=== PATIENT | female | born 1980 | race Caucasian/White ===

== ENCOUNTER 2016-08-29 15:59 | Emergency (ER) | payer OTHER ==
[2016-08-29 16:22] VITALS: BP 116/85
--- NOTE | 2016-08-29 16:45 | UC ---
Complaint Female HPI - HPI Summary HPI Summary: complaint of pain with urination that started 3 days ago increase in frequency and urgency denies fever ,abdominal pain taken azo and ibuprofen with minimal relief - History Of Current Complaint Chief Complaint: UCGU Stated Complaint: POSS UTI Time Seen by Provider: 08/29/16 16:32 Hx Obtained From: Patient Hx Last Menstrual Period: 08/08/16 - Allergies/Home Medications Allergies/Adverse Reactions: Allergies Allergy/AdvReac Type Severity Reaction Status Date / Time Ceftriaxone [From Rocephin] Allergy Intermediate Hives Verified 08/29/16 16:18 Morphine Allergy Mild Hives Verified 08/29/16 16:18 Aspirin Allergy Unknown Unknown Verified 08/29/16 16:18 Reaction Details Penicillins Allergy Unknown Unknown Verified 08/29/16 16:18 Reaction Details Acetaminophen [From Tylenol] Allergy See Comment Verified 08/29/16 16:18 Ibuprofen AdvReac Intermediate See Comment Verified 08/29/16 16:18 Gentamycin Allergy Intermediate Hives Uncoded 08/29/16 16:18 Home Medications: Home Medications diPHENhydraMINE PO* [Benadryl PO 50 MG CAP*] 08/29/16 [History] PMH/Surg Hx/FS Hx/Imm Hx Previously Healthy: Yes Endocrine History Of: Reports: Thyroid Disease Cardiovascular History Of: Denies: Cardiac Disorders Respiratory History Of: Reports: Bronchitis GI/ History Of: Reports: Kidney Stones - Surgical History Surgical History: Yes Surgery Procedure, Year, and Place: 1979 ifeanyi procedure, (bad liver) ,D&C 1996, Tubal ligation, 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 - Family History Known Family History: Negative: Cardiac Disease, Hypertension, Diabetes - Social History Occupation: Employed Full-time Lives: With Family Alcohol Use: None Substance Use Type: None Smoking Status (MU): Never Smoked Tobacco Review of Systems Constitutional: Negative Skin: Negative Eyes: Negative ENT: Negative Respiratory: Negative Cardiovascular: Negative Gastrointestinal: Negative Genitourinary: Dysuria, Frequency, Urgency Motor: Negative Neurovascular: Negative Musculoskeletal: Negative Neurological: Negative Psychological: Negative All Other Systems Reviewed And Are Negative: Yes Physical Exam Triage Information Reviewed: Yes Appearance: No Pain Distress, Well-Nourished Vital Signs: Initial Vital Signs Temp 98.6 F 08/29/16 16:19 Pulse 93 08/29/16 16:19 Resp 16 08/29/16 16:19 BP 116/85 08/29/16 16:19 Pulse Ox 100 08/29/16 16:19 Vital Signs Reviewed: Yes Eyes: Positive: Conjunctiva Clear ENT: Positive: Pharynx normal, TMs normal Neck: Positive: No Lymphadenopathy Respiratory: Positive: Lungs clear, Normal breath sounds, No respiratory distress, No accessory muscle use Cardiovascular: Positive: RRR, No Murmur, Pulses Normal Abdomen Description: Positive: Nontender, No Organomegaly, Soft. Negative: CVA Tenderness (R), CVA Tenderness (L) Bowel Sounds: Positive: Present Musculoskeletal: Positive: No Edema Neurological: Positive: Alert Psychological Exam: Normal Skin Exam: Normal Complaint Female Dx - Differential Dx/Diagnosis Differential Diagnosis/HQI/PQRI: Urinary Tract Infection Provider Diagnoses: UTI Discharge - Discharge Plan Condition: Stable Disposition: HOME Prescriptions: Nitrofurantoin Monohyd Macro [Macrobid] 100 mg PO BID #10 cap Patient Education Materials: Urinary Tract Infection in Women (ED) Referrals: Neil Bernard MD [Primary Care Provider] - Additional Instructions: Please take antibiotic as directed Increase fluids and rest Take acetaminophen or ibuprofen for fever or pain Please review your discharge instructions. If your symptoms do not improve please call your primary care provider or return to urgent care.
== END 2016-08-29 16:54 | disposition home or self-care (01) ==
LOC: UCEAST 15:59
DX: N39.0 Urinary tract infection, site not specified (principal); Z88.1 Allergy status to other antibiotic agents; Z88.6 Allergy status to analgesic agent; Z88.5 Allergy status to narcotic agent; E07.9 Disorder of thyroid, unspecified; Z87.442 Personal history of urinary calculi; Z94.4 Liver transplant status
CPT/HCPCS: 87077; 87086; 87186; 99212; G0463

== ENCOUNTER 2016-09-02 13:04 | Emergency (ER) | payer OTHER ==
[2016-09-02 14:10] VITALS: BP 123/82
[2016-09-02] MEDS ORDERED: Ondansetron ODT TAB* 4 MG PO ONE (14:10)
--- NOTE | 2016-09-02 14:46 | UC ---
Rakel Slater Matthew, scribed for Afua Perez MD on 09/02/16 at 1421 . Abdominal Pain Female HPI - HPI Summary HPI Summary: A 36 y/o female presents to with one episode of vomiting at 05:00 this morning. She states that she missed the toilet, because of the urgency. She recently started on nitrofurantoin on 08/31/16 for a UTI, and believes the nausea is secondary to her Abx. She took two doses on 08/31, and accidentally 3 doses on 09/01. The patient took her Abx at 20:00 and took the second one at 23: 30 last night. She then became ill at 04:30 today with nausea followed by vomiting at 05:00. Associated symptoms currently include dizziness. She denies diarrhea. The Abx made her feel dizzy and lightheaded, so she was taking the medication in the morning, where she could go back to bed. She also states that she may have overeaten last night. She does not believe the pain is originating from her liver, because she states that pain is not similar. 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 SHx of tubal ligation. Antibiotics normally make her nauseated. - History of Current Complaint Chief Complaint: GI Stated Complaint: VOMITING Time Seen by Provider: 09/02/16 13:57 Hx Obtained From: Patient Hx Last Menstrual Period: July 2016 ?: No Onset/Duration: Sudden Onset, Lasting Hours, Still Present Timing: Constant Severity Initially: Mild Severity Currently: Mild Pain Intensity: 2 Pain Scale Used: 0-10 Numeric Location: Diffuse - "Upset stomach" Radiates: No Character: Aching Aggravating Factor(s): Other: - She believes her symptoms are secondary to the Abx Alleviating Factor(s): Nothing Associated Signs and Symptoms: Positive: Nausea, Vomiting - one episode, Other: - Dizziness. Negative: Diarrhea - Risk Factors Ectopic Risk Factor: Tubal Ligation Ovarian Torsion Risk Factor: Negative Allergies/Adverse Reactions: Allergies Allergy/AdvReac Type Severity Reaction Status Date / Time Ceftriaxone [From Rocephin] Allergy Intermediate Hives Verified 08/29/16 16:18 Morphine Allergy Mild Hives Verified 08/29/16 16:18 Aspirin Allergy Unknown Unknown Verified 08/29/16 16:18 Reaction Details Penicillins Allergy Unknown Unknown Verified 08/29/16 16:18 Reaction Details Acetaminophen [From Tylenol] Allergy See Comment Verified 08/29/16 16:18 Ibuprofen AdvReac Intermediate See Comment Verified 08/29/16 16:18 Gentamycin Allergy Intermediate Hives Uncoded 08/29/16 16:18 PMH/Surg Hx/FS Hx/Imm Hx 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 - Family History Known Family History: Negative: Cardiac Disease, Hypertension, Diabetes - Social History Occupation: Employed Full-time Lives: With Family Alcohol Use: None Substance Use Type: None Smoking Status (MU): Never Smoked Tobacco - Immunization History Most Recent Tetanus Shot: 2017 Review of Systems Constitutional: Negative Skin: Negative Eyes: Negative ENT: Negative Respiratory: Negative Cardiovascular: Negative Gastrointestinal: Vomiting, Other - Nausea Genitourinary: Negative Motor: Negative Neurovascular: Negative Musculoskeletal: Negative Neurological: Other - Dizziness Psychological: Negative All Other Systems Reviewed And Are Negative: Yes Physical Exam Triage Information Reviewed: Yes Appearance: Well-Appearing, Well-Nourished, Pain Distress - mild Vital Signs: Initial Vital Signs Temp 98.8 F 09/02/16 13:59 Pulse 109 09/02/16 13:59 Resp 16 09/02/16 13:59 BP 123/82 09/02/16 13:59 Pulse Ox 100 09/02/16 13:59 tachycardia noted Vital Signs Reviewed: Yes Eyes: Positive: Conjunctiva Clear ENT: Positive: Normal ENT inspection Neck: Positive: Supple Respiratory: Positive: Chest non-tender, Lungs clear, Normal breath sounds, No respiratory distress Cardiovascular: Positive: RRR, No Murmur, Pulses Normal, Brisk Capillary Refill Abdomen Description: Positive: Nontender, No Organomegaly, Soft, Other: - Liver non palpable and non-tender. Negative: Bruit, CVA Tenderness (R), CVA Tenderness (L), Distended, Guarding, Hernia @, Hepatomegaly, McBurney's Point Tenderness, Peritoneal Signs, Pulsatile Mass, Splenomegaly Bowel Sounds: Positive: Present Musculoskeletal: Positive: Strength Intact, ROM Intact Neurological: Positive: Alert, Muscle Tone Normal Psychological: Positive: Age Appropriate Behavior Skin Exam: Normal Abd Pain Female Course/Dx - Course Course Of Treatment: The patient was notified of the med interaction with Zofran. She understands and agrees. Pt medications reviewed this visit - Differential Dx/Diagnosis Differential Diagnosis: Irritable Bowel Syndrome, Pancreatitis, Peptic Ulcer Disease, Urinary Tract Infection, Other - liver transplant rejection Provider Diagnoses: Acute nausea and vomiting. Medication side effect. S/P liver transplant Discharge - Discharge Plan Condition: Stable Disposition: HOME Prescriptions: Ondansetron ODT TAB* [Zofran 4 MG Odt TAB*] 4 mg PO Q6H PRN #20 tab.odt PRN Reason: Nausea Patient Education Materials: Acute Nausea and Vomiting (ED), Ondansetron (By mouth) Forms: *Work Release Referrals: Neil Bernard MD [Primary Care Provider] - (as scheduled on 09/09/16, sooner if needed ) Additional Instructions: Please follow-up with Dr. Bernard as scheduled. RETURN TO URGENT CARE OR ED FOR ANY NEW OR WORSENING SYMPTOMS Thank you for helping us improve patient care by filling out the My [facility]. The documentation as recorded by the Rakel ross Matthew accurately reflects the service I personally performed and the decisions made by , Afua Perez MD.
== END 2016-09-02 14:34 | disposition home or self-care (01) ==
LOC: UCEAST 13:04
DX: R11.2 Nausea with vomiting, unspecified (principal); T37.8X5A Adverse effect of other specified systemic anti-infectives and antiparasitics, initial encounter; Y92.009 Unspecified place in unspecified non-institutional (private) residence as the place of occurrence of the external cause; Z94.4 Liver transplant status; R42 Dizziness and giddiness; E89.1 Postprocedural hypoinsulinemia; E07.9 Disorder of thyroid, unspecified; Z87.442 Personal history of urinary calculi; Z88.1 Allergy status to other antibiotic agents; Z88.5 Allergy status to narcotic agent; Z88.6 Allergy status to analgesic agent; Z88.0 Allergy status to penicillin
CPT/HCPCS: 99212; A9270-GY; G0463

== ENCOUNTER 2016-09-09 19:12 | Emergency (ER) | payer OTHER ==
[2016-09-09 20:39] LABS: Hematocrit 37 % (35-47); Hemoglobin 12.3 g/dl (12.0-16.0); Mean Corpuscular HGB Conc 33 g/dl (31-36); Mean Corpuscular Hemoglobin 27 pg (27-31); Mean Corpuscular Volume 80 fL (80-97); Mean Platelet Volume 9 um3 (7.4-10.4); Red Blood Count 4.65 10^6/ul (4.0-5.4); Red Cell Distribution Width 15 % (10.5-15); White Blood Count 12.1 10^3/ul (3.5-10.8)
--- NOTE | 2016-09-09 20:45 | ED ---
I, Jose E,Betty, scribed for Eugene Pederson MD on 09/09/16 at 2018 . HPI Chest Pain - HPI Summary HPI Summary: This 36 y/o female presents to ED for constant, two-days old CP that radiates down LUE arm. Pain has been gradually worsening since the time of onset, and worse with deep breath. Negative SOB. PMHx includes left shoulder bursitis, kidney stones, and unspecified liver disease s/p [place] procedure in 1979 and liver transplant in 2004. Primary care involves Dr. Bernard. Pt is nonsmoker and nondrinker. - History of Current Complaint Chief Complaint: EDChestPainROMI Hx Obtained From: Patient, Medical Records Onset/Duration: Started Days Ago, Atraumatic, Still Present Timing: Constant, Lasting Days - 2 days Pain Intensity: 4 Pain Scale Used: 0-10 Numeric Chest Pain Location: Diffuse Chest Pain Radiates: Yes Chest Pain Radiates To:: Arm - LUE arm Character: Dull/Aching Aggravating Factor(s): Deep Breaths Alleviating Factor(s): Nothing Associated Signs and Symptoms: Positive: Chest Pain. Negative: Shortness of Breath, Fever - Allergy/Home Medications Allergies/Adverse Reactions: Allergies Allergy/AdvReac Type Severity Reaction Status Date / Time Ceftriaxone [From Rocephin] Allergy Intermediate Hives Verified 08/29/16 16:18 Morphine Allergy Mild Hives Verified 08/29/16 16:18 Aspirin Allergy Unknown Unknown Verified 08/29/16 16:18 Reaction Details Penicillins Allergy Unknown Unknown Verified 08/29/16 16:18 Reaction Details Acetaminophen [From Tylenol] Allergy See Comment Verified 08/29/16 16:18 Ibuprofen AdvReac Intermediate See Comment Verified 08/29/16 16:18 Gentamycin Allergy Intermediate Hives Uncoded 08/29/16 16:18 PMH/Surg Hx/FS Hx/Imm Hx Endocrine/Hematology History: Reports: Hx Diabetes - Post surgical diabetes, Hx Thyroid Disease Cardiovascular History: Denies: Hx Hypertension Respiratory History: Denies: Hx Asthma, Hx Chronic Obstructive Pulmonary Disease (COPD) GI History: Reports: Hx Hiatal Hernia, Other GI Disorders - Liver transplant Denies: Hx Ulcer History: Reports: Hx Kidney Infection, Hx Kidney Stones Musculoskeletal History: Reports: Hx Bursitis - L Shoulder - Surgical History Surgery Procedure, Year, and Place: 1979 ifeanyi procedure, (bad liver) ,D&C 1996, Tubal ligation, 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 Infectious Disease History: Reports: Hx of Known/Suspected MRSA Denies: Hx Clostridium Difficile, Hx Hepatitis, Hx Human Immunodeficiency Virus (HIV), Hx Shingles, Hx Tuberculosis, Hx Known/Suspected VRE, Hx Known/ Suspected VRSA, History Other Infectious Disease, Traveled Outside the [place] in Last 30 Days - Family History Known Family History: Positive: Other - Mother -- HLD; Father -- unspecified thyroid issue Negative: Cardiac Disease, Hypertension, Diabetes - Social History Alcohol Use: None Hx Substance Use: No Substance Use Type: Reports: None Hx Tobacco Use: No Smoking Status (MU): Never Smoked Tobacco Review of Systems Negative: Fever Positive: Chest Pain - radiating down LUE arm Negative: Shortness Of Breath All Other Systems Reviewed And Are Negative: Yes Physical Exam Triage Information Reviewed: Yes Vital Signs On Initial Exam: Initial Vitals Temp Pulse Resp BP Pulse Ox 99.2 F 106 18 133/84 100 09/09/16 19:21 09/09/16 19:21 09/09/16 19:21 09/09/16 19:21 09/09/16 19:21 Vital Signs Reviewed: Yes Appearance: Positive: Well-Appearing, No Pain Distress Skin: Positive: Warm Head/Face: Positive: Normal Head/Face Inspection Eyes: Positive: RC ENT: Positive: Hearing grossly normal Neck: Positive: Supple Respiratory/Lung Sounds: Positive: Clear to Auscultation, Breath Sounds Present Cardiovascular: Positive: RRR Abdomen Description: Positive: Nontender, Soft Bowel Sounds: Positive: Present Musculoskeletal: Positive: Strength/ROM Intact Neurological: Positive: Sensory/Motor Intact, Alert, Oriented to Person Place, Time, Normal Gait Psychiatric: Positive: Affect/Mood Appropriate Diagnostics - Vital Signs Vital Signs Temp Pulse Resp BP Pulse Ox 09/09/16 19:21 99.2 F 106 18 133/84 100 - Laboratory Lab Results: Lab Results 09/09/16 Range/Units 20:28 WBC 12.1 H (3.5-10.8) 10^3/ul RBC 4.65 (4.0-5.4) 10^6/ul Hgb 12.3 (12.0-16.0) g/dl Hct 37 (35-47) % MCV 80 (80-97) fL MCH 27 (27-31) pg MCHC 33 (31-36) g/dl RDW 15 (10.5-15) % Plt Count 214 (150-450) 10^3/ul MPV 9 (7.4-10.4) um3 Neut % (Auto) 81.2 (38-83) % Lymph % (Auto) 13.5 L (25-47) % [place] % (Auto) 4.4 (1-9) % Eos % (Auto) 0.3 (0-6) % Baso % (Auto) 0.6 (0-2) % Absolute Neuts (auto) 9.8 H (1.5-7.7) 10^3/ul Absolute Lymphs (auto) 1.6 (1.0-4.8) 10^3/ul Absolute Monos (auto) 0.5 (0-0.8) 10^3/ul Absolute Eos (auto) 0 (0-0.6) 10^3/ul Absolute Basos (auto) 0.1 (0-0.2) 10^3/ul Absolute Nucleated RBC 0 10^3/ul Nucleated RBC % 0 Result Diagrams: 09/09/16 20:28 09/09/16 20:28 Lab Statement: Any lab studies that have been ordered have been reviewed, and results considered in the medical decision making process. - Radiology CXR Xray Interpretation: No Acute Changes Radiology Interpretation Completed By: Radiologist - CT CTA Chest/Thorax CT Interpretation: No Acute Changes - No CT of evidence of pulmonary embolism or other acute thoracic abnormality.. CT Interpretation Completed By: Radiologist - EKG 2013 Cardiac Rate: NL - 88 bpm EKG Rhythm: Sinus Rhythm Re-Evaluation - Re-Evaluation First Eval Change: Improved - results d/w pt Chest Pain Course/Dx - Diagnoses Provider Diagnoses: Chest pain Discharge - Discharge Plan Condition: Stable Disposition: HOME Patient Education Materials: Chest Pain (ED) Referrals: Neil Bernard MD [Primary Care Provider] - 2 Days The documentation as recorded by the Jose E ross Soohyun accurately reflects the service I personally performed and the decisions made by , Eugene Pederson MD.
[2016-09-09 21:00] LABS: BUN/Creatinine Ratio 19.7 (8-20); Calcium 9.1 mg/dL (8.6-10.3); EGFR African American 109.5 (>60); EGFR Non-African American 85.2 (>60); Globulin 4.1 g/dL (2-4); Magnesium 1.8 mg/dL (1.9-2.7); Potassium 3.7 mmol/L (3.5-5.0); Total Bilirubin 0.5 mg/dL (0.2-1.0); Total Protein 8.1 g/dL (6.4-8.9)
--- NOTE | 2016-09-09 21:00 | RAD ---
INDICATION: Chest pain COMPARISON: Similar chest x-ray dated April 20, 2014 TECHNIQUE: PA and lateral views of the chest were obtained. FINDINGS: The heart and mediastinum are normal in size and contour. The lungs are grossly clear. There is no evidence of large pleural effusion. Visualized bones are normal for the patient's age. There is no radiographic evidence of free air beneath the diaphragm IMPRESSION: No radiographic evidence of acute cardiopulmonary disease.
[2016-09-09 21:01] LABS: Troponin I 0.01 ng/mL (<0.04)
[2016-09-09] MEDS ORDERED: Iodixanol* (CONTRAST) 320 MG/ML 100 ML SDV IV ONE (21:24)
--- NOTE | 2016-09-09 22:15 | RAD ---
INDICATION: Chest pain x2 days COMPARISON: With recent CTA of the chest January 01, 2015 TECHNIQUE: Axial source images were acquired following the administration of 66 mL of Visipaque [address] angiographic technique. Coronal and sagittal reconstructed images were constructed and reviewed. FINDINGS: There there are no filling defects in the pulmonary arteries to indicate acute pulmonary embolic disease. There are no focal infiltrates or effusions. There are no pulmonary parenchymal masses. The heart is normal in size. There is no evidence of pericardial effusion. There is no evidence of aortic aneurysm or dissection. There is no mediastinal, hilar, or axillary lymphadenopathy. The visualized osseous structures appear normal. Similar the previous CTA there is air in the biliary system of the left lobe. IMPRESSION: No CT of evidence of pulmonary embolism or other acute thoracic abnormality..
[2016-09-09 23:06] VITALS: BP 113/76
== END 2016-09-09 23:06 | disposition home or self-care (01) ==
LOC: ED 19:12
DX: R07.9 Chest pain, unspecified (principal)
CPT/HCPCS: 36415; 71020; 71275; 80053; 83605; 83735; 84484; 85025; 85379; 93005; 96374; 99283; Q9967

== ENCOUNTER 2016-11-23 09:22 | Emergency (ER) | payer OTHER ==
[2016-11-23 09:32] VITALS: BP 135/73
--- NOTE | 2016-11-23 09:49 | UC ---
Lower Extremity/Ankle HPI - History of Current Complaint Chief Complaint: UCLowerExtremity Stated Complaint: FOOT PAIN Hx Obtained From: Patient - has been treated for R foot bone spur and heelpain, pain in sole by head of product. she has had a Xray and is waiting for MRI to be approved. pain became after work yesterday, felt like foot got swollen. she was able to elevate foot and wear boot and today a bit better. she works long hours on her feet Hx Last Menstrual Period: 11/16/16 Onset/Duration: Gradual Onset Severity Initially: Severe Severity Currently: Mild Aggravating Factor(s): Standing, Ambulation Alleviating Factor(s): Rest, Elevation, Ice, Other - boot (head of product) Able to Bear Weight: Yes - Risk Factors Gout Risk Factors: Negative - Allergies/Home Medications Allergies/Adverse Reactions: Allergies Allergy/AdvReac Type Severity Reaction Status Date / Time Ceftriaxone [From Rocephin] Allergy Intermediate Hives Verified 08/29/16 16:18 Morphine Allergy Mild Hives Verified 08/29/16 16:18 Aspirin Allergy Unknown Unknown Verified 08/29/16 16:18 Reaction Details Penicillins Allergy Unknown Unknown Verified 08/29/16 16:18 Reaction Details Acetaminophen [From Tylenol] Allergy See Comment Verified 08/29/16 16:18 Ibuprofen AdvReac Intermediate See Comment Verified 08/29/16 16:18 Gentamycin Allergy Intermediate Hives Uncoded 08/29/16 16:18 PMH/Surg Hx/FS Hx/Imm Hx Previously Healthy: Yes GI/ History: Other - liver transplant (congenital biliary atresia) Other GI/ History: liver transplant Psychological History: Anxiety - Surgical History Surgical History: Yes Surgery Procedure, Year, and Place: 1979 ifeanyi procedure, (bad liver) ,D&C 1996, Tubal ligation, 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 - Family History Known Family History: Positive: Other - Mother -- HLD; Father -- unspecified thyroid issue Negative: Cardiac Disease, Hypertension, Diabetes - Social History Occupation: Employed Full-time - [employer] Lives: With Family Alcohol Use: None Substance Use Type: None Smoking Status (MU): Never Smoked Tobacco - Immunization History Most Recent Tetanus Shot: 2017 Review of Systems Constitutional: Negative Skin: Negative Respiratory: Negative Cardiovascular: Negative Gastrointestinal: Negative Musculoskeletal: Other: - L heel and foot pain All Other Systems Reviewed And Are Negative: Yes Physical Exam Triage Information Reviewed: Yes Appearance: Well-Appearing, No Pain Distress, Well-Nourished Vital Signs: Initial Vital Signs Temp 97.6 F 11/23/16 09:29 Pulse 87 11/23/16 09:29 Resp 16 11/23/16 09:29 BP 135/73 11/23/16 09:29 Pulse Ox 100 11/23/16 09:29 Vital Signs Reviewed: Yes Respiratory Exam: Normal Cardiovascular Exam: Normal Musculoskeletal: Positive: Strength Intact, ROM Intact, Other: - amb with slight R side limp Neurological Exam: Normal Psychological Exam: Normal Skin Exam: Normal Lower Extremity Course/Dx - Differential Dx/Diagnosis Differential Diagnosis/HQI/PQRI: Contusion, Sprain, Strain, Tendonitis, Other - tendon injury Provider Diagnoses: R plantar fasciitis and heel spur Discharge - Discharge Plan Condition: Good Disposition: HOME Patient Education Materials: Plantar Fasciitis (ED), Heel Spur (ED) Forms: *Work Release Referrals: Neil Bernard MD [Primary Care Provider] - Josh Kelly DPM [Doctor of Podiatric Medicine] - Additional Instructions: Elevate foot and use ice as discussed for pain and swelling Use boot from head of product whenever possible Follow-up with podiatry as planned on Friday
== END 2016-11-23 09:59 | disposition home or self-care (01) ==
LOC: UCEAST 09:22
DX: M72.2 Plantar fascial fibromatosis (principal); M77.31 Calcaneal spur, right foot
CPT/HCPCS: 99211; G0463

== ENCOUNTER → 2016-12-27 10:22 | Day surgery (SDC) | payer OTHER ==
[~2016-12-27 10:22] MED LIST: Buffered Lidocaine 0.9% SYRIN* 5 ML/SYR SYRINGE INTRADERM ONE; Buffered Lidocaine 0.9% SYRIN* 5 ML/SYR SYRINGE ONE; Bupivacaine 0.25% SDV* 30 ML ONE; Clindamycin 900 MG IVPREMIX(* 900 MG/50 ML SDV IV ONE; Dexamethasone IV* 4 MG/ML 1 ML (4 MG) IV SLOW PU ONE; Dexamethasone IV* 4 MG/ML 1 ML (4 MG) ONE; Glycopyrrolate IV* 0.2 MG/ML 1 ML VIAL ONE; HYDROmorphone* 1 MG/ML 1 ML SYR IV PRN; KETAMINE HCL* 50 MG/ML 10 ML VIAL ONE; Ketorolac INJ* 30 MG/ML 1 ML VIAL ONE; Lidocaine 1% INJ* 10 MG/ML 30 ML SDV ONE; Lidocaine 2% PF * 5 ML VIAL ONE; Metoclopramide IV* 5 MG/ML 2 ML VIAL IV SLOW PU ONE; Metoclopramide IV* 5 MG/ML 2 ML VIAL ONE; Midazolam* 1 MG/ML 5 ML VIAL (5 MG) ONE; Neostigmine Methylsulfate* 2 MG/2 ML SYRINGE ONE; Ondansetron INJ* 2 MG/ML VIAL ONE; Propofol* 500 MG/50 ML BTL ONE; diPHENhydraMINE IV* 50 MG/ML 1 ml VIAL (BENADRYL) IV PRN; fentaNYL* 50 MCG/ML 2 ML VIAL (100 MCG VIAL) IV PRN; fentaNYL* 50 MCG/ML 2 ML VIAL (100 MCG VIAL) ONE; oxyCODONE TAB* 5 MG TAB PO PRN
[2016-12-27 15:02] VITALS: BP 111/81
--- NOTE | 2016-12-28 05:55 | OP ---
DATE OF OPERATION: 12/27/16 - [facility] DATE OF : 76 SURGEON: Josh Kelly DPM ANESTHESIOLOGIST: Hilda Talamantes MD ANESTHESIA: MAC local. PRE-OP DIAGNOSIS: Right foot Cait exostosis. POST-OP DIAGNOSIS: Right foot Cait exostosis. OPERATIVE PROCEDURE: Removal of Cait exostosis, right foot. ESTIMATED BLOOD LOSS: Less than 10 cc. IV FLUIDS: LR 1000 cc. DRAINS: None. SPECIMEN: Bone from the right calcaneus. DESCRIPTION OF PROCEDURE: The patient was taken to the operating room and was placed in a left lateral decubitus position with the right side facing the surgeon. Time-out was called and OR team agreed. The right foot was then blocked with 8 cc of 1% lidocaine plain locally to area. The foot was then prepped and draped in a sterile manner. The right foot was then exsanguinated with an Esmarch bandage and the cuff was then inflated to 250 mmHg. Attention was then paid to the lateral aspect of the right foot. I made a linear incision just slightly inferior to the Achilles tendon, approximately 2 to 3 cm from the Achilles tendon insertion site and another 1 cm distal to the insertion site. This was followed by sharp and blunt dissection from the epidermis, dermis, subcutaneous into the deep fascia. The lateral aspect of the calcaneus was then identified and the attachment of the Achilles tendon to the calcaneus was identified as well. I made a linear incision over the calcaneus, just approximately 2 cm from the Achilles tendon site and insertion site. I then proceeded to underscore and dissect lightly peeling of the tendon from its lateral attachments of the calcaneus. This gave me access to the Cait deformity, which has an exostosis or bony spur going into the original calcaneal part of the heel bone. I then went ahead and took a sagittal saw and proceeded to remove and excise the Cait exostosis. Once it was determined that adequate bone was removed, the procedure was then deemed completed. The area was wrapped smooth and I then proceeded to close the wound in a fashion with the deep layers sutured with a combination of 2-0 and 3-0 Polysorb , and the subcutaneous layer was closed with a 3-0 Polysorb as well, and the skin was closed with a 4-0 nylon in a simple sutured fashion. The site was then injected with 8 cc of 0.25% Marcaine plain and procedure was then deemed completed. The cuff was deflated. The foot was then placed in a dry sterile dressing. The patient was taken to recovery in a stable condition and was later discharged in stable condition as well. [id number]/[facility] #: [id number] MTDD
== END | disposition home or self-care (01) ==
LOC: OR 10:22
PROVIDERS: ATTEND Podiatrist
DX: M77.31 Calcaneal spur, right foot (principal); Z88.6 Allergy status to analgesic agent; Z88.1 Allergy status to other antibiotic agents; Z88.5 Allergy status to narcotic agent; Z88.0 Allergy status to penicillin; Z88.8 Allergy status to other drugs, medicaments and biological substances; Z94.4 Liver transplant status
CPT/HCPCS: J1100; J1885; J2001; J2250; J2405; J2704; J2765; J3010

== ENCOUNTER 2017-06-26 09:38 | Inpatient (IN) | payer OTHER ==
[~2017-06-26 09:38] MED LIST changes: -Buffered Lidocaine 0.9% SYRIN* 5 ML/SYR SYRINGE INTRADERM ONE; -Buffered Lidocaine 0.9% SYRIN* 5 ML/SYR SYRINGE ONE; -Bupivacaine 0.25% SDV* 30 ML ONE; -Clindamycin 900 MG IVPREMIX(* 900 MG/50 ML SDV IV ONE; -Dexamethasone IV* 4 MG/ML 1 ML (4 MG) IV SLOW PU ONE; -Dexamethasone IV* 4 MG/ML 1 ML (4 MG) ONE; -Glycopyrrolate IV* 0.2 MG/ML 1 ML VIAL ONE; -HYDROmorphone* 1 MG/ML 1 ML SYR IV PRN; -KETAMINE HCL* 50 MG/ML 10 ML VIAL ONE; -Ketorolac INJ* 30 MG/ML 1 ML VIAL ONE; -Lidocaine 1% INJ* 10 MG/ML 30 ML SDV ONE; -Lidocaine 2% PF * 5 ML VIAL ONE; -Metoclopramide IV* 5 MG/ML 2 ML VIAL IV SLOW PU ONE; -Metoclopramide IV* 5 MG/ML 2 ML VIAL ONE; -Midazolam* 1 MG/ML 5 ML VIAL (5 MG) ONE; -Neostigmine Methylsulfate* 2 MG/2 ML SYRINGE ONE; -Ondansetron INJ* 2 MG/ML VIAL ONE; -Propofol* 500 MG/50 ML BTL ONE; +Vancomycin(*) 1,500 MG in NS 0.9% 250 ML* 250 ML IVPB ONE; -diPHENhydraMINE IV* 50 MG/ML 1 ml VIAL (BENADRYL) IV PRN; -fentaNYL* 50 MCG/ML 2 ML VIAL (100 MCG VIAL) IV PRN; -fentaNYL* 50 MCG/ML 2 ML VIAL (100 MCG VIAL) ONE; -oxyCODONE TAB* 5 MG TAB PO PRN
[2017-06-26] MEDS ORDERED: Ketorolac INJ* 30 MG/ML 1 ML VIAL IV PUSH ONE (10:07)
[2017-06-26] MEDS ORDERED: Ondansetron INJ* 2 MG/ML VIAL IV ONE (10:07)
[2017-06-26] MEDS ORDERED: NS 0.9% 1000 ML* 2,000 ML IV ONE (10:08)
[2017-06-26] MEDS ORDERED: metroNIDAZOLE IV 500 MG/100ML* 500 MG/100 ML BAG IVPB ONE (10:30)
[2017-06-26] MEDS ORDERED: Cefepime 2 GM in Dextrose(*) 2 GM/50 ML BAG IV ONE (10:30)
[2017-06-26] MEDS ORDERED: Vancomycin(*) 1,000 MG in NS 0.9% 250 ML* 250 ML IVPB ONE (10:30)
[2017-06-26] MEDS ORDERED: diPHENhydraMINE IV* 50 MG/ML 1 ml VIAL (BENADRYL) IV ONE (10:31)
[2017-06-26 10:33] LABS: ABS Basophils 0 10^3/ul (0-0.2); ABS Eosinophils 0 10^3/ul (0-0.6); ABS Lymphocytes 0.6 10^3/ul (1.0-4.8); ABS Monocytes 0.5 10^3/ul (0-0.8); ABS Neutrophils 9.3 10^3/ul (1.5-7.7); ABS Nucleated RBC 0 10^3/ul; Eosinophil % 0.2 % (0-6); Hematocrit 40 % (35-47); Hemoglobin 13.4 g/dl (12.0-16.0); Mean Corpuscular HGB Conc 34 g/dl (31-36); Mean Corpuscular Hemoglobin 27 pg (27-31); Mean Corpuscular Volume 81 fL (80-97); Mean Platelet Volume 9 um3 (7.4-10.4); Nucleated Red Blood Cells % 0; Platelet Count 136 10^3/ul (150-450); Red Blood Count 4.93 10^6/ul (4.0-5.4); Red Cell Distribution Width 17 % (10.5-15); White Blood Count 10.5 10^3/ul (3.5-10.8)
[2017-06-26 10:48] LABS: EGFR Non-African American 80.3 (>60)
--- NOTE | 2017-06-26 10:54 | ED ---
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 Denies any urinary symptoms, including suprapubic pain, burning, cloudy urine. History of kidney stone many years ago, but has not cause complications since that time. Endorses diffuse myalgias. Symptoms have been present 2 days. She has not taken anything for relief. She takes tacrolimus as her rejection medication for her liver transplant. Denies any cough or sore throat. She did not receive a flu vaccination this year, endorses sick contacts. Denies travel. - History of Current Complaint Chief Complaint: EDNauseaVomitDiarrh Time Seen by Provider: 06/26/17 09:51 Hx Obtained From: Patient Onset/Duration: Sudden Onset Severity: Moderate Associated Signs & Symptoms: Fever, T Max - 103.4, F/C, Myalgia, Headache, Vomiting Related Hx: Possible Flu/Infectious Exposure - Risk Factors Influenza Risk Factors: Chronic Medical or Immunosuppresive Condition - On Prograf S/P liver transplant 2006 - Allergy/Home Medications Allergies/Adverse Reactions: Allergies Allergy/AdvReac Type Severity Reaction Status Date / Time ceftriaxone Allergy Intermediate Hives Verified 06/26/17 12:14 gentamicin Allergy Intermediate Hives Verified 06/26/17 12:14 morphine Allergy Intermediate Hives Verified 06/26/17 12:14 acetaminophen Allergy Unknown Verified 06/26/17 10:38 Reaction Details aspirin Allergy Unknown Verified 06/26/17 10:38 Reaction Details Penicillins Allergy Unknown Verified 06/26/17 10:38 Reaction Details ibuprofen AdvReac Intermediate See Comment Verified 06/26/17 12:14 Home Medications: Home Medications Cyclobenzaprine TAB* [Flexeril 10 MG TAB*] 10 mg PO BID PRN 06/26/17 [History Confirmed 06/26/17] Ibuprofen TAB* [Advil TAB*] 400 mg PO BID WITH MEALS 06/26/17 [History Confirmed 06/26/17] Ranitidine TAB (NF) [Zantac TAB (NF)] 150 mg PO BID 06/26/17 [History Confirmed 06/26/17] clonazePAM TAB(*) [KlonoPIN TAB(*)] 0.5 - 1 mg PO BEDTIME PRN 06/26/17 [History Confirmed 06/26/17] diphenhydrAMINE HCl [Benadryl] 25 - 50 mg PO Q8HR PRN 06/26/17 [History Confirmed 06/26/17] oxyCODONE TAB* [Roxycodone TAB 5 mg*] 10 - 15 mg PO BEDTIME PRN 06/26/17 [ History Confirmed 06/26/17] predniSONE TAB* [Deltasone TAB*] 10 mg PO DAILY 06/26/17 [History Confirmed 12/06] PMH/Surg Hx/FS Hx/Imm Hx Previously Healthy: Yes Endocrine/Hematology History: Reports: Hx Thyroid Disease, Hx Anemia - NOT CURRENTLY Denies: Hx Diabetes Cardiovascular History: Denies: Hx Hypertension Respiratory History: Denies: Hx Asthma, Hx Chronic Obstructive Pulmonary Disease (COPD) GI History: Reports: Hx Cirrhosis - 2005 LIVER TRANSPLANT, BILALARY ATRESIA, Hx Gastroesophageal Reflux Disease - OCCASIONA, Hx Hiatal Hernia, Other GI Disorders - Liver transplant Denies: Hx Ulcer History: Reports: Hx Kidney Infection - R/T STONE 2008, Hx Kidney Stones - NO SURGERY Musculoskeletal History: Reports: Hx Arthritis - GENERALIZED, Hx Bursitis - L Shoulder, Other Musculoskeletal History - 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 Denies: Hx Rheumatoid Arthritis Sensory History: Denies: Hx Contacts or Glasses, Hx Hearing Aid Opthamlomology History: Denies: Hx Contacts or Glasses Neurological History: Reports: Hx Migraine - HX OF AFTER LIVER TRANSPLANT 2004 NONE RECENT Psychiatric History: Reports: Hx Anxiety, Hx Depression - Surgical History Surgery Procedure, Year, and Place: 1979 ifeanyi procedure, (bad liver) ,D&C 1996, Tubal ligation 2000, liver altizthldz45/ 2005 (liver failure) [facility], tonsillectomy 2008 [facility] Hx Anesthesia Reactions: Yes - HIGH ISABELL TO PAIN MEDS REPORTS AWAKENING DURING PROCEDURES - Immunization History Hx Pertussis Vaccination: No Immunizations Up to Date: Yes Infectious Disease History: No Infectious Disease History: Reports: Hx of Known/Suspected MRSA Denies: Hx Clostridium Difficile, Hx Hepatitis, Hx Human Immunodeficiency Virus (HIV), Hx Shingles, Hx Tuberculosis, Hx Known/Suspected VRE, Hx Known/ Suspected VRSA, History Other Infectious Disease, Traveled Outside the [place] in Last 30 Days - Family History Known Family History: Positive: Other - Mother -- HLD; Father -- unspecified thyroid issue Negative: Cardiac Disease, Hypertension, Diabetes - Social History Occupation: Employed Full-time Lives: With Family Alcohol Use: None Hx Substance Use: No Substance Use Type: Reports: Prescribed Hx Tobacco Use: No Smoking Status (MU): Never Smoked Tobacco Review of Systems Positive: Fever, Chills, Fatigue, Skin Diaphoresis ENT: Negative Negative: Sore Throat, Ear Ache, Nasal Discharge Cardiovascular: Negative Negative: Palpitations, Chest Pain Negative: Shortness Of Breath, Cough Positive: Vomiting, Nausea Genitourinary: Negative Positive: no symptoms reported, see HPI Positive: Myalgia Skin: Negative Positive: Headache All Other Systems Reviewed And Are Negative: Yes Physical Exam Triage Information Reviewed: Yes Vital Signs On Initial Exam: Initial Vitals Temp Pulse Resp BP Pulse Ox 102.5 F 131 22 125/82 100 06/26/17 09:47 06/26/17 09:47 06/26/17 09:47 06/26/17 09:47 06/26/17 09:47 Vital Signs Reviewed: Yes Appearance: Positive: Well-Nourished, Ill-Appearing Skin: Positive: Skin Color Reflects Adequate Perfusion Head/Face: Positive: Normal Head/Face Inspection Eyes: Positive: EOMI, RC, Conjunctiva Clear Neck: Positive: Supple, No Lymphadenopathy Respiratory/Lung Sounds: Positive: Clear to Auscultation, Breath Sounds Present Cardiovascular: Positive: RRR, Pulses are Symmetrical in both Upper and Lower Extremities Musculoskeletal: Positive: Normal, Strength/ROM Intact Neurological: Positive: Speech Normal Psychiatric: Positive: Normal, Affect/Mood Appropriate AVPU Assessment: Alert - [place] Coma Scale Best Eye Response: 4 - Spontaneous Best Motor Response: 5 - Purposeful Movement Best Verbal Response: 5 - Oriented Coma Scale Total: 14 Diagnostics - Vital Signs Vital Signs Temp Pulse Resp BP Pulse Ox 06/26/17 09:47 102.5 F 131 22 125/82 100 - Laboratory Lab Results: Lab Results 06/26/17 06/26/17 Range/Units 10:22 10:22 WBC 10.5 (3.5-10.8) 10^3/ul RBC 4.93 (4.0-5.4) 10^6/ul Hgb 13.4 (12.0-16.0) g/dl Hct 40 (35-47) % MCV 81 (80-97) fL MCH 27 (27-31) pg MCHC 34 (31-36) g/dl RDW 17 H (10.5-15) % Plt Count 136 L (150-450) 10^3/ul MPV 9 (7.4-10.4) um3 Neut % (Auto) 88.9 H (38-83) % Lymph % (Auto) 6.0 L (25-47) % Leake % (Auto) 4.6 (0-7) % Eos % (Auto) 0.2 (0-6) % Baso % (Auto) 0.3 (0-2) % Absolute Neuts (auto) 9.3 H (1.5-7.7) 10^3/ul Absolute Lymphs (auto) 0.6 L (1.0-4.8) 10^3/ul Absolute Monos (auto) 0.5 (0-0.8) 10^3/ul Absolute Eos (auto) 0 (0-0.6) 10^3/ul Absolute Basos (auto) 0 (0-0.2) 10^3/ul Absolute Nucleated RBC 0 10^3/ul Nucleated RBC % 0 Sodium 132 L (133-145) mmol/L Potassium 3.7 (3.5-5.0) mmol/L Chloride 99 L (101-111) mmol/L Carbon Dioxide 25 (22-32) mmol/L Anion Gap 8 (2-11) mmol/L BUN 20 (6-24) mg/dL Creatinine 0.80 (0.51-0.95) mg/dL Est GFR ( Amer) 103.2 (>60) Est GFR (Non-Af Amer) 80.3 (>60) BUN/Creatinine Ratio 25.0 H (8-20) Glucose 93 (70-100) mg/dL Calcium 9.2 (8.6-10.3) mg/dL Magnesium 1.5 L (1.9-2.7) mg/dL Total Bilirubin 0.60 (0.2-1.0) mg/dL AST 18 (13-39) U/L ALT 19 (7-52) U/L Alkaline Phosphatase 97 (34-104) U/L C-Reactive Protein 6.17 H (< 5.00) mg/L Total Protein 7.6 (6.4-8.9) g/dL Albumin 4.0 (3.2-5.2) g/dL Globulin 3.6 (2-4) g/dL Albumin/Globulin Ratio 1.1 (1-3) Lipase 15 (11.0-82.0) U/L Beta HCG, Quant Pending Result Diagrams: 06/26/17 10:22 06/26/17 10:22 Lab Statement: Any lab studies that have been ordered have been reviewed, and results considered in the medical decision making process. Re-Evaluation - Re-Evaluation First Eval Change: Worse - Worse since arrival, myalgia. She is given Toradol and Zofran Second Eval Change: Worse - Continues to have diffuse myalgias, now with headache. She is given 0.5 IV Dilaudid Third Eval Change: Worse - Continues to have fevers. Now at 103.4 despite the Toradol. She is given 650 mg Tylenol Flu Symptom Course/Dx - Course Course Of Treatment: During the course of treatment, the patient is evaluated for right flank pain and flulike symptoms. Vital signs show 102.3 temp, heart rate at 131, respirations at 22. Initiated septic protocol based on her vital signs. Blood pressure within normal range at 128/82. 2 L normal saline, 4 mg morphine, 30 mg Toradol IV is given. Sepsis of unknown origin antibiotics initiated. Due to allergies of penicillins and ceftriaxone, vancomycin 1000 mg , cefepime and metronidazole given. Due to allergic reaction of ceftriaxone, she is premedicated with 50 mg IV Benadryl. Tolerated well. Labs obtained which show a normal white count, slightly decreased sodium at 132. Influenza negative. Chest x-ray shows no active cardiopulmonary disease. UA obtained and negative for any leuks or WBCs. CT abdomen/pelvis obtained which shows: IMPRESSION: 1. Unremarkable noncontrast appearance of the transplanted liver. 2. Solitary dilated small bowel loop in the anterior periumbilical abdomen measuring up to. 4.2 cm diameter with an air-fluid level increased in diameter compared with the October 082015 exam of indeterminate significance. Negative for dilatation of the more proximal. small bowel to indicate obstruction. Negative for associated mural thickening or. perienteric inflammatory change. 3. Normal appendix documented. Mild sigmoid colon diverticulosis without findings of. diverticulitis. 4. Bilateral sacroiliitis without gross change. Discussed case with Dr. Brewer. Temperature increased to 103.4. Tylenol 650 mg given despite "allergy" she states which is not an actual allergy but due to liver transplant does not take. No source of infection. Dr. Hernandez ( hospitalist) called who agrees to come see patient and admit. - Diagnoses Differential Diagnosis/HQI/PQRI: Positive: Influenza, Pneumonia, Upper Respiratory Infection, Other Provider Diagnoses: Fever, unknown origin - Physician Notifications Discussed Care Of Patient With: Marlon Brewer Instructed by Provider To: Admit As Inpatient Discharge - Discharge Plan Condition: Stable Disposition: ADMITTED TO [facility] Referrals: Neil Bernard MD [Primary Care Provider] -
--- NOTE | 2017-06-26 11:12 | RAD ---
INDICATION: Vomiting. Post liver transplant in 2005. COMPARISON: October 09, 2015 CT. TECHNIQUE: Multidetector CT images were obtained from the lung bases to the ischial tuberosities. Evaluation of the viscera is limited without IV contrast. Multiplanar reformation. REPORT: Unremarkable visualized inferior thorax. 15.3 cm cephalocaudal transplanted liver demonstrates normal surface contour and homogeneous density. Pneumobilia reflecting previous bile duct anastomosis. No conspicuous focal liver lesions within limits of noncontrast CT. No visualized dilatation of the common bile duct. Unremarkable pancreas and spleen. Negative for CT abnormality of the upper GI. Solitary dilated small bowel loop in the anterior periumbilical abdomen measuring up to 4.2 cm diameter with an air-fluid level. Negative for dilatation of the more proximal small bowel to indicate obstruction. Negative for associated mural thickening or perienteric inflammatory change. Moderately large volume of stool present throughout the colon. Mild sigmoid colon diverticulosis without findings of diverticulitis. Negative for ascites, free air, hernias. Normal adrenal glands. Negative for urolithiasis or hydronephrosis. No conspicuous focal renal lesions. No suspicious finding along the course of the nondilated ureters. Pelvic phleboliths noted. Unremarkable retroverted uterus and adnexal regions. Negative for lymphadenopathy. Normal diameter abdominal aorta and iliac arteries. Physiologic distention of the IVC. Polyarticular degenerative arthropathy. Bilateral sacroiliitis with osseous erosions along the iliac margins without significant change. IMPRESSION: 1. Unremarkable noncontrast appearance of the transplanted liver. 2. Solitary dilated small bowel loop in the anterior periumbilical abdomen measuring up to 4.2 cm diameter with an air-fluid level increased in diameter compared with the October 09, 2015 exam of indeterminate significance. Negative for dilatation of the more proximal small bowel to indicate obstruction. Negative for associated mural thickening or perienteric inflammatory change. 3. Normal appendix documented. Mild sigmoid colon diverticulosis without findings of diverticulitis. 4. Bilateral sacroiliitis without gross change.
--- OUTSIDE RECORDS SUMMARY | 2017-06-26 11:19 | XMS REPORT ---
:1980 External Reference #:[id number] Author Organization [facility] [email or web address] Address [address] [address] Phone [phone] Care Team Providers Name Role Phone Neil Bernard MD Care Team Information Internal Audit Senior Manager Unavailable Neil Bernard MD Primary Care Physician Unavailable Payers Type Date Identification Numbers Payment Provider Subscriber Commercial Effective: Policy Number: [id number] [employer] Leatha Prado 2007 Medicaid PayID: [id number] [address] [address] [place] [address] Problems Date Description Provider Status Onset: 03/19/2007 Transplantation of liver Mirella Catalan M.D.,FACP Onset: 03/19/2007 Depressive disorder Mirella Catalan M.D.,FACP Onset: 03/19/2007 Staphylococcus aureus Mirella Catalan M.D.,FACP Onset: 03/19/2007 Gastritis Mirella Catalan M.D.,FACP Onset: 03/19/2007 Migraine with typical aura Mirella Catalan M.D.,FACP Onset: 06/01/2007 Severe recurrent major depression Meño Markham Active without psychotic features Beau,FACP Onset: 07/07/2007 Congenital biliary atresia Mirella Catalan M.D.,FACP Onset: 08/17/2007 Chronic disease of tonsils AND/OR Meño Markham Active adenoids Beau,FACP Onset: 08/17/2007 Low back pain Meño Markham, Active M.D.,FACP Family History Date Family Member(s) Problem(s) Comments General Diabetes General Heart Disease General Hypertension General Cancer Maternal Grandmother due to Heart Disease () Social History Type Date Description Comments Marital Status 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 Cigarette Use Never Smoked Cigarettes ETOH Use Denies alcohol use Recreational Drug Use Denies Drug Use Smoking Patient has never smoked Exercise Type/Frequency Exercises sporadically Allergies, Adverse Reactions, Alerts Date Description Reaction Status Severity Comments 03/19/2007 Demerol active 03/19/2007 Aspir-81 active 03/19/2007 Gentamycin Urticaria active 03/19/2007 Rocephin Urticaria active 03/19/2007 Penicillin active 04/25/2017 Dairy active 04/25/2017 Doxycycline active nausea, diarrhea 04/25/2017 Albuterol active 04/25/2017 Morphine Liposomal active rash, itching 03/19/2007 Codeine inactive 03/19/2007 Phenergan inactive Medications Medication Date Status Form Strength Qnty SIG Indications Ordering Provider Nystatin 06/18 Active Suspension [id number] 500un swish and B37.0 t/ML its swallow Anthony, 4-6mls by M.D. mouth four times a day. (half dose in each side of mouth), watch for hives Cyclobenzaprine 06/03 Active Tablets 10mg 60tab 1 tablet by s mouth twice Anthony, daily as M.D. needed muscle spasms Enbrel Sureclick 05/19 Active Solution 50mg/ml 4unit inject Z79.899 Auto-Inject s subcutaneou Anthony, sly 50mg M.D. every week Tacrolimus Active 1mg 2 in am, 1 Unknown /0000 in pm Oxycodone HCL Active Tablets 5mg 90tab Take one by s mouth every Anthony, eight hours M.D. as needed for pain Clonazepam Active Tablets 2mg 1 by mouth three times a day Benadryl Allergy Active Tablets 25mg 1-2 tabs twice a day for itching Ibuprofen Active Tablets 200mg 1 by mouth three times a day with food as needed Lidocaine Active Patches 5% apply patch up to 12 hours once a day. Ranitidine HCL Active Capsules 150mg take one capsule by mouth twice a day prn Prednisone Active Tablets 10mg 90tab Take one s half Anthony, capsule/tab M.D. let daily by mouth Magnesium-Oxide 05/28 Hx Tablets 400(241.3 30tab take one mg) mg s capsule/tab Anthony, - let daily M.D. 05/30 by mouth Plaquenil 04/25 Hx Tablets 200mg 60tab 1 by mouth M05.79 s every day Anthony, - for 1 week M.D. 05/30 then 2 mouth daily ongoing Dilaudid 10/18 Hx Tablets 4mg 120ta 1 tab qid bs prn Jan Patino M.D.,[facility] 08/26 Topamax 10/18 Hx Tablets 50mg 60tab 1 po bid Jan Adams M.D.,[facility] 08/26 Lomotil 10/05 Hx Tablets 2.5mg 40tab 1 tab qid s prn Jan Patino M.D.,[facility] 10/18 Remeron 08/16 Hx Tablets 30mg 30tab 1 Tabs PO 296.33 s Q hs Jan Patino M.D.,[facility] 08/26 Cipro 07/08 Hx Tablets 500mg 14tab 1 PO bid x s 7days Jan Patino M.D.,[facility] 08/16 Frova 07/06 Hx Tablets 2.5mg 12tab q2h prn 346.00 s mdd2 Jan Patino M.D.,[facility] 08/26 Prednisolone 06/01 Hx Tablets 5mg 60tab 1 tab qod s Jan Patino M.D.,[facility] 07/06 Mycelex 06/01 Hx Rolly 10mg 50uni 5x/day for 112.0 ts 10 days Jan Patino M.D.,[facility] 08/16 Remeron 06/01 Hx Tablets 30mg 30tab 1/2 tab po 296.33 s q hs Jan Patino M.D.,[facility] 08/16 Avelox 06/01 Hx Tablets 400mg 6tabs 1 qd for 6 days Jan Patino M.D.,[facility] 07/06 Hydrocodone/Sneha 05/29 Hx Syrup 5-1.5/5 240ml 5 cc quid tropine /2007 prn cough Jan Patino M.D.,[facility] 07/06 Zithromax Z-Tip 05/28 Hx Tablets 250mg 1Pak take as 466.0 directed Jan Patino M.D.,[facility] 07/06 Hydrocodone/Guai 05/28 Hx Syrup 5-100/5 150cc 5 cc q 8 466.0 fenesin hours prn Jan Patino M.D.,[facility] 06/01 Prograf 03/19 Hx Capsules 1mg 3 PO bid Jan Patino M.D.,[facility] 08/26 Cellcept 03/19 Hx Tablets 500mg 1 bid Jan Patino M.D.,[facility] 08/26 Omeprazole 03/[address] 20mg 30cap qd PO Jan dAams M.D.,[facility] 07/06 Topamax 03/19 Hx Tablets 25mg 120ta 2 Tabs bid bs Jan Patino M.D.,[facility] 10/18 Frova 03/19 Hx Tablets 2.5mg 18tab Q2H prn Meño s MDD2 Jan Patino M.D.,[facility] 05/28 Fluoxetine HCL 03/19 Hx Capsules 20mg 30cap PO qd s Jan Patino M.D.,[facility] 05/28 Promethazine HCL 11/29 Hx Tablets 25mg 1 qhs prn Meño Jan Patino M.D.,[facility] 08/16 Prilosec 03/[address] 20mg 30cap 1 po qd 535.40 Jan Hodge M.D.,[facility] 08/26 Reglan 03/19 Hx Tablets 5mg 30tab qac prn 535.40 Meño Mendez2006 Jan Adams M.D.,[facility] 05/28 Vistaril 03/19 Hx Capsules 25mg 346.00 Meño Jan Patino M.D.,[facility] 08/26 Dilaudid Hx Tablets 2mg 120ta 1-2 tid po Meño / bs prn Jan Patino M.D.,[facility] 10/18 Medications Administered in Office Medication Date Status Form Strength Qnty SIG Indications Ordering Provider Triamcinolone 05/30/ Administered Injection Sean BarriosKenalog) 2017 Beau Cruz Triamcinolone 05/21/ Administered Injection Sean Washburnalog) Minda Cruz M.D. No Injection 08/27/ Administered Injection Gordo 2016 MD Brayan Vital Signs Date Vital Result Comment 06/18/2017 Height 65.5 inches 5'5.50" Weight 146.00 lb Heart Rate 92 /min BP Systolic Sitting 130 mmHg BP Diastolic Sitting 85 mmHg Respiratory Rate 14 /min Pain Level 2 BMI (Body Mass Index) 23.9 kg/m2 05/30/2017 Height 65.5 inches 5'5.50" Heart Rate 114 /min BP Systolic Sitting 130 mmHg BP Diastolic Sitting 76 mmHg Respiratory Rate 14 /min Pain Level 10 05/19/2017 Height 65.5 inches 5'5.50" Weight 139.00 lb Heart Rate 93 /min BP Systolic Sitting 127 mmHg BP Diastolic Sitting 78 mmHg Respiratory Rate 14 /min Pain Level 7 BMI (Body Mass Index) 22.8 kg/m2 04/25/2017 Height 65.5 inches 5'5.50" Weight 137.00 lb Heart Rate 68 /min BP Systolic Sitting 140 mmHg BP Diastolic Sitting 86 mmHg Respiratory Rate 14 /min Pain Level 8 BMI (Body Mass Index) 22.4 kg/m2 12/03/2016 Height 64 inches 5'4" Weight 132.00 lb Heart Rate 80 /min BP Systolic 104 mmHg BP Diastolic 68 mmHg Respiratory Rate 16 /min Body Temperature 98.2 F BMI (Body Mass Index) 22.7 kg/m2 08/27/2016 Height 64 inches 5'4" Weight 131.00 lb Heart Rate 77 /min BP Systolic 112 mmHg BP Diastolic 66 mmHg Body Temperature 96.6 F BMI (Body Mass Index) 22.5 kg/m2 10/19/2007 Height 64 inches 5'4" Weight 178.00 lb Heart Rate 90 /min BP Systolic Sitting 110 mmHg BP Diastolic Sitting 76 mmHg BMI (Body Mass Index) 30.6 kg/m2 08/17/2007 Height 64 inches 5'4" Weight 181.00 lb Heart Rate 80 /min BP Systolic Sitting 110 mmHg BP Diastolic Sitting 68 mmHg BMI (Body Mass Index) 31.1 kg/m2 07/07/2007 Height 64 inches 5'4" Weight 171.00 lb Heart Rate 74 /min BP Systolic Sitting 118 mmHg BP Diastolic Sitting 70 mmHg BMI (Body Mass Index) 29.3 kg/m2 06/01/2007 Height 64 inches 5'4" Weight 173.00 lb Heart Rate 70 /min BP Systolic Sitting 132 mmHg BP Diastolic Sitting 68 mmHg BMI (Body Mass Index) 29.7 kg/m2 05/28/2007 Height 64 inches 5'4" Weight 176.00 lb Heart Rate 68 /min BP Systolic Sitting 122 mmHg BP Diastolic Sitting 70 mmHg BMI (Body Mass Index) 30.2 kg/m2 03/19/2007 Height 64 inches 5'4" Weight 179.00 lb Heart Rate 76 /min BP Systolic Sitting 112 mmHg BP Diastolic Sitting 62 mmHg Body Temperature 97.8 F BMI (Body Mass Index) 30.7 kg/m2 Results Test Date Test Result H/L Range Note Urinalysis Profile 05/30/2017 Urine Color Yellow Urine Appearance Clear Urine Specific [place] 1.010 1.010-1.030 Urine pH 5.0 5-9 Urine Urobilinogen Negative Negative Urine Ketones Negative Negative Urine Protein Negative Negative Urine Leukocytes Negative Negative Urine Blood 1+ Negative * * Negative 1 Urine Nitrite Negative Negative Urine Bilirubin Negative Negative Urine Glucose Negative Negative Urine White Blood Cell Trace(0-5/hpf) Absent Urine Red Blood Cell Trace(0-2/hpf) Absent Urine Bacteria Absent Absent Urine Squamous Epithelial Cell Present Absent HIV 1/2 AB Evaluation 05/21/2017 HIV 1 2 Antibody Nonreactive Nonreactive 2 Laboratory test finding 05/21/2017 C Reactive Protein 21.13 mg/L High &lt ; 5.00 3 Erythrocyte Sed Rate 49 mm/Hr High 0-14 Quantiferon Gold TB 05/21/2017 M tuberculosis by Quantiferon Negative Negative 4 TB Ag minus Nil Result -0.01 IU/mL TB Mitogen minus Nil Result 8.32 IU/mL TB Nil Result 0.11 IU/mL 5 Laboratory test finding 05/21/2017 Creatine Kinase(CK) 30 U/L 10-223 Magnesium 1.7 mg/dL Low 1.9-2.7 Tacrolimus 2.4 ng/mL 6 CBC Auto Diff 05/21/2017 White Blood Count 13.7 10^3/uL High 3.5-10.8 Red Blood Count 4.58 10^6/uL 4.0-5.4 Hemoglobin 11.9 g/dL Low 12.0-16.0 Hematocrit 37 % 35-47 Mean Corpuscular Volume 80 fL 80-97 Mean Corpuscular Hemoglobin 26 pg Low 27-31 Mean Corpuscular HGB Conc 32 g/dL 31-36 Red Cell Distribution Width 15 % 10.5-15 Platelet Count 258 10^3/uL 150-450 Mean Platelet Volume 9 um3 7.4-10.4 Abs Neutrophils 11.0 10^3/uL High 1.5-7.7 Abs Lymphocytes 1.7 10^3/uL 1.0-4.8 Abs Monocytes 0.8 10^3/uL 0-0.8 Abs Eosinophils 0.1 10^3/uL 0-0.6 Abs Basophils 0.1 10^3/uL 0-0.2 Abs Nucleated RBC 0 10^3/uL Granulocyte % 80.2 % 38-83 Lymphocyte % 12.6 % Low 25-47 Monocyte % 6.1 % 1-9 Eosinophil % 0.7 % 0-6 Basophil % 0.4 % 0-2 Nucleated Red Blood Cells % 0 Comp Metabolic Panel 05/21/2017 Sodium 137 mmol/L 133-145 Potassium 3.7 mmol/L 3.5-5.0 Chloride 104 mmol/L 101-111 Co2 Carbon Dioxide 26 mmol/L 22-32 Anion Gap 7 mmol/L 2-11 Glucose 86 mg/dL 70-100 Blood Urea Nitrogen 17 mg/dL 6-24 Creatinine 0.70 mg/dL 0.51-0.95 BUN/Creatinine Ratio 24.3 High 8-20 Calcium 9.2 mg/dL 8.6-10.3 Total Protein 7.1 g/dL 6.4-8.9 Albumin 3.7 g/dL 3.2-5.2 Globulin 3.4 g/dL 2-4 Albumin/Globulin Ratio 1.1 1-3 Total Bilirubin 0.40 mg/dL 0.2-1.0 Alkaline Phosphatase 97 U/L 34-104 Alt 9 U/L 7-52 Ast 12 U/L Low 13-39 Egfr Non- 93.6 >60 Egfr 120.4 >60 7 Celiac Panel 05/21/2017 Tissue Transglutaminase IgA Ab <1.2 U/mL 8 Immunoglobulin A 378 mg/dL 61 - 356 Celiac Interpretation See Comment 9 Celiac Hla 05/21/2017 Hla-Dqa1 SEE BELOW 10 [id number]-DQB1 SEE BELOW 11 Celiac Gene Pairs Present? No Celiac Gene Interpretation See Comment 12 Laboratory test finding 04/25/2017 Rheumatoid Factor 89 IU/mL <15 13 Cyclic Citrullinated Pep Igg <15.6 U 14 CBC Auto Diff 04/25/2017 White Blood Count 13.7 10^3/uL High 3.5-10.8 Red Blood Count 4.72 10^6/uL 4.0-5.4 Hemoglobin 12.5 g/dL 12.0-16.0 Hematocrit 38 % 35-47 Mean Corpuscular Volume 81 fL 80-97 Mean Corpuscular Hemoglobin 27 pg 27-31 Mean Corpuscular HGB Conc 33 g/dL 31-36 Red Cell Distribution Width 15 % 10.5-15 Platelet Count 264 10^3/uL 150-450 Mean Platelet Volume 9 um3 7.4-10.4 Abs Neutrophils 10.1 10^3/uL High 1.5-7.7 Abs Lymphocytes 2.5 10^3/uL 1.0-4.8 Abs Monocytes 0.9 10^3/uL High 0-0.8 Abs Eosinophils 0.1 10^3/uL 0-0.6 Abs Basophils 0 10^3/uL 0-0.2 Abs Nucleated RBC 0 10^3/uL Granulocyte % 74.2 % 38-83 Lymphocyte % 18.4 % Low 25-47 Monocyte % 6.2 % 1-9 Eosinophil % 0.9 % 0-6 Basophil % 0.3 % 0-2 Nucleated Red Blood Cells % 0 Comp Metabolic Panel 04/25/2017 Sodium 137 mmol/L 133-145 Potassium 3.6 mmol/L 3.5-5.0 Chloride 101 mmol/L 101-111 Co2 Carbon Dioxide 29 mmol/L 22-32 Anion Gap 7 mmol/L 2-11 Glucose 80 mg/dL 70-100 Blood Urea Nitrogen 23 mg/dL 6-24 Creatinine 0.66 mg/dL 0.51-0.95 BUN/Creatinine Ratio 34.8 High 8-20 Calcium 9.1 mg/dL 8.6-10.3 Total Protein 7.5 g/dL 6.4-8.9 Albumin 3.9 g/dL 3.2-5.2 Globulin 3.6 g/dL 2-4 Albumin/Globulin Ratio 1.1 1-3 Total Bilirubin 0.40 mg/dL 0.2-1.0 Alkaline Phosphatase 96 U/L 34-104 Alt 14 U/L 7-52 Ast 12 U/L Low 13-39 Egfr Non- 100.2 >60 Egfr 128.9 >60 15 Grace Igg AB Reflex 04/25/2017 SS-A/Ro Antibody 0.3 U 16 SS-B/La Antibody <0.2 U 17 Sm (Little) IgG Antibody <0.2 U 18 U1-nRNP Antibody <0.2 U 19 Scl-70 (Scleroderma) Antibody <0.2 U 20 Dianne-1 Antibody <0.2 U 21 Hepatitis Acute Panel 04/25/2017 Hepatitis C Antibody Nonreactive Nonreactive Hepatitis A AB Igm Nonreactive Nonreactive Hepatitis B Core AB Igm Nonreactive Nonreactive Hepatitis B Surface Ag Nonreactive Nonreactive Laboratory test finding 04/25/2017 Vitamin D, 1,25 Dihydroxy 45 pg/mL 18- 78 22 Complement C3 121 mg/dL 75 - 175 23 Complement C4 26 mg/dL 14 - 40 24 Anti Double Stranded Dna AB <12.3 IU/mL 25 Hla B27 04/25/2017 Hla B27 Positive 26 Hla B27 Interp See Comment 27 CBC With Electronic Diff Stat 01/13/2008 White Blood Count 10.4 CUMM 4.8- 10.8 Red Cell Count 4.40 CUMM 4.2-5.4 Hemoglobin 12.6 g/dL 12.0-16.0 Hematocrit 36 % 35-47 Mean Corpuscular Volume 83 um3 79-97 Mean Corpuscular Hemoglob 29 pg 27-31 Mean Corpuscular HGB Cone 35 g/dL 32-36 Redcell Distribution WDTH 14 % 10.5-15 Platelet Count 167 CUMM 150-450 Mean Platelet Volume 8.9 um3 7.4-10.4 Gran % 75.6 % 38-83 Lymph % 18.7 % Low 20-45 Mononuclear % 4.7 % 1-9 Eosinophil % 0.5 % 0-6 Basophil % 0.5 % 0-2 Abs Lymphs 1.9 1.0-4.8 Abs Mononuclear 0.5 0-0.8 Absolute Neutrophil Count 7.8 High 1.5-7.7 Abs Eosinophils 0.1 0-0.6 Abs Basophils 0.1 0-0.2 HCG Qualitative Stat 01/13/2008 Serum Qual HCG NEGATIVE Negative 28 DS3 01/13/2008 Amphetamines Urine NONE DETECTED None Detect Screen Barbituates Urine Screen NONE DETECTED None Detect Benzodiazepine Ur Screen NONE DETECTED None Detect Cannabinoid Urine Screen NONE DETECTED None Detect Cocaine Metabolites Urine NONE DETECTED None Detect Opiates Urine Screen POSITIVE None Detect PCP Urine Screen NONE DETECTED None Detect 29 Salicylate Stat 01/13/2008 Salicylate < 4.0 mg/dL Less Than 30 30 Alcohol Stat 01/13/2008 Alcohol < 10.0 mg/dL None Detected 31 Acetaminophen Stat 01/13/2008 Acetaminophen < 10 g/mL Low 10-30 32 Basic Metabolic Panel 01/13/2008 Sodium 136 mmol/L 135-145 Stat Potassium 3.4 mmol/L Low 3.5-5.0 Chloride 111 mmol/L 101-111 Co2 (Carbon Dioxide) 21.0 mmol/L Low 22-32 Anion Gap 4.0 mmol/L 2-11 33 Glucose 128 mg/dL High 70-100 34 BUN 13 mg/dL 6-24 Creatinine 1.1 mg/dL 0.5-1.4 One Over Creatinine 0.90 BUN/Creatinine Ratio 11.8 8-20 Calcium 8.4 mg/dL 8.1-9.9 35 Amylase Stat 01/04/2008 Amylase 79 U/L 30-125 Laboratory test finding 01/04/2008 Lipase 33 U/L 22-51 Urine Culture & 01/04/2008 Urine Culture NF1 36 Sensitivi Sensitivi P33S 01/04/2008 Sodium 139 mmol/L 135-145 Potassium 3.9 mmol/L 3.5-5.0 Chloride 112 mmol/L High 101-111 Co2 (Carbon Dioxide) 18.0 mmol/L Low 22-32 Anion Gap 9.0 mmol/L 2-11 37 Glucose 126 mg/dL High 70-100 38 BUN 15 mg/dL 6-24 Creatinine 1.0 mg/dL 0.5-1.4 One Over Creatinine 1.00 BUN/Creatinine Ratio 15.0 8-20 Calcium 9.1 mg/dL 8.1-9.9 39 Total Protein 7.1 GM/DL 6.2-8.1 Albumin 4.0 GM/DL 3.6-5.4 Globulin 3.1 GM/DL 2-4 Albumin/Globulin Ratio 1.3 1-3 Bilirubin Total 0.8 mg/dL 0.4-1.5 Alkaline Phosphatase 85 U/L 30-110 Alt (SGPT) 14 U/L 14-54 Ast (Sgot) 19 U/L 12-42 Laboratory test finding 01/04/2008 (HCG) Serum NEGATIVE Negative 40 Urinalysis W/Microscopic 01/04/2008 Ua Color YELLOW Stat Appearance-Urine HAZY Specific [place]-Ur 1.015 1.010-1.030 Esterase-Urine TRACE Negative Nitrite NEGATIVE Negative Qimqzlozrnvg-Lm-VLA NEGATIVE Negative Protein-Urine NEGATIVE Negative PH-Urine 5.0 5-9 Blood-Urine TRACE Negative Ketones-Urine NEGATIVE Negative Bilirubin-Ur NEGATIVE Negative Glucose-Urine NEGATIVE Negative WBC-Urine 2-8 0-5 RBC-Urine 0-2 0-2 Mucus Urine TRACE Epith Cells-Ur FILLED Bacteria-Urine 2+ CBC With Electronic Diff Stat 01/04/2008 White Blood Count 8.7 CUMM 4.8- 10.8 Red Cell Count 4.69 CUMM 4.2-5.4 Hemoglobin 13.4 g/dL 12.0-16.0 Hematocrit 38 % 35-47 Mean Corpuscular Volume 81 um3 79-97 Mean Corpuscular Hemoglob 29 pg 27-31 Mean Corpuscular HGB Cone 36 g/dL 32-36 Redcell Distribution WDTH 14 % 10.5-15 Platelet Count 204 CUMM 150-450 Mean Platelet Volume 9.5 um3 7.4-10.4 Gran % 76.5 % 38-83 Lymph % 17.9 % Low 20-45 Mononuclear % 4.6 % 1-9 Eosinophil % 0.5 % 0-6 Basophil % 0.5 % 0-2 Abs Lymphs 1.5 1.0-4.8 Abs Mononuclear 0.4 0-0.8 Absolute Neutrophil Count 6.6 1.5-7.7 Abs Eosinophils 0 0-0.6 Abs Basophils 0 0-0.2 41 DS3 07/16/2007 Amphetamines Urine Screen NONE DETECTED None Detect Benzodiazepine Ur Screen NONE DETECTED None Detect Cocaine Metabolites Urine NONE DETECTED None Detect Opiates Urine Screen POSITIVE None Detect PCP Urine Screen NONE DETECTED None Detect 42 Cannabinoid Urine Screen NONE DETECTED None Detect Barbituates Urine Screen NONE DETECTED None Detect CBC With Electronic Diff Stat 07/16/2007 White Blood Count 7.4 CUMM 4.8- 10.8 Abs Basophils 0.1 0-0.2 Abs Eosinophils 0.1 0-0.6 Absolute Neutrophil Count 4.8 1.5-7.7 Abs Lymphs 2.0 1.0-4.8 Abs Mononuclear 0.4 0-0.8 Basophil % 0.7 % 0-2 Hematocrit 38 % 35-47 Hemoglobin 13.0 g/dL 12.0-16.0 Eosinophil % 1.6 % 0-6 Gran % 65.1 % 38-83 Lymph % 27.0 % 20-45 Mean Corpuscular HGB Cone 35 g/dL 32-36 Mean Corpuscular Hemoglob 29 pg 27-31 Mean Corpuscular Volume 82 um3 79-97 Mean Platelet Volume 9.3 um3 7.4-10.4 Mononuclear % 5.6 % 1-9 Platelet Count 204 CUMM 150-450 Red Cell Count 4.56 CUMM 4.2-5.4 Redcell Distribution WDTH 14 % 10.5-15 Alcohol Stat 07/16/2007 Alcohol < 10.0 mg/dL None Detected 43 Basic Metabolic 07/16/2007 One Over Creatinine 1.00 Panel Stat Anion Gap 5.0 mmol/L 2-11 44 BUN 18 mg/dL 6-24 Calcium 9.0 mg/dL 8.7-10.2 Chloride 107 mmol/L 101-111 Co2 (Carbon Dioxide) 23.0 mmol/L 22-32 Glucose 122 mg/dL High 70-105 Potassium 3.8 mmol/L 3.5-5.0 Sodium 135 mmol/L 135-145 BUN/Creatinine Ratio 18.0 8-20 Creatinine 1.0 mg/dL 0.5-1.4 Rapid Strep A 07/14/2007 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 <SEE NOTE> Laboratory test 07/14/2007 Throat-Beta Strep NGNBS 46 finding Culture Laboratory test 07/07/2007 Throat Culture FEW [STAPHYLOCOC 47 finding Full <SEE NOTE> CBC With Electronic 06/11/2007 White Blood Count 7.2 CUMM 4.8-10.8 Diff Stat Abs Basophils 0.1 0-0.2 Abs Eosinophils 0.1 0-0.6 Absolute Neutrophil Count 4.9 1.5-7.7 Abs Lymphs 1.7 1.0-4.8 Abs Mononuclear 0.5 0-0.8 Basophil % 0.9 % 0-2 Hematocrit 36 % 35-47 Hemoglobin 12.4 g/dL 12.0-16.0 Eosinophil % 1.1 % 0-6 Gran % 67.5 % 38-83 Lymph % 23.7 % 20-45 Mean Corpuscular HGB Cone 35 g/dL 32-36 Mean Corpuscular Hemoglob 29 pg 27-31 Mean Corpuscular Volume 82 um3 79-97 Mean Platelet Volume 9.6 um3 7.4-10.4 Mononuclear % 6.8 % 1-9 Platelet Count 203 CUMM 150-450 Red Cell Count 4.34 CUMM 4.2-5.4 Redcell Distribution WDTH 14 % 10.5-15 P33S 06/11/2007 One Over Creatinine 1.25 Anion Gap 6.0 mmol/L 2-11 48 Albumin/Globulin Ratio 1.2 1-3 Albumin 3.6 GM/DL 3.6-5.4 Alkaline Phosphatase 66 U/L 30-110 Alt (SGPT) 12 U/L Low 14-54 Ast (Sgot) 28 U/L 12-42 BUN 16 mg/dL 6-24 Calcium 8.9 mg/dL 8.7-10.2 Chloride 111 mmol/L 101-111 Co2 (Carbon Dioxide) 21.0 mmol/L Low 22-32 Globulin 3.1 GM/DL 2-4 Glucose 100 mg/dL 70-105 Potassium 4.2 mmol/L 3.5-5.0 Sodium 138 mmol/L 135-145 Bilirubin Total 1.2 mg/dL 0.4-1.5 Total Protein 6.7 GM/DL 6.2-8.1 BUN/Creatinine Ratio 20.0 8-20 Creatinine 0.8 mg/dL 0.5-1.4 HCG Qualitative Stat 06/11/2007 Serum Qual HCG NEGATIVE Negative 49 Laboratory test 06/02/2007 Urine Culture SCANT NORMAL URE 50 finding Sensitivi <SEE NOTE> Urinalysis 06/01/2007 Ua Color YELLOW W/Microscopic Stat Amorphous Sed-U TRACE Appearance-Urine CLEAR Bacteria-Urine TRACE Bilirubin-Ur NEGATIVE Negative Blood-Urine TRACE Negative Epith Cells-Ur FEW Esterase-Urine TRACE Negative Glucose-Urine NEGATIVE Negative Ketones-Urine NEGATIVE Negative Mucus Urine MODERATE Nitrite NEGATIVE Negative PH-Urine 5.0 5-9 Protein-Urine NEGATIVE Negative RBC-Urine 0-2 0-2 Bkpsejondzhl-[id number]-QGJ NEGATIVE Negative Specific [place]-Ur 1.016 1.010-1.030 WBC-Urine 3-5 0-5 Laboratory test 06/01/2007 Stool Specimen M^MUCOID^STCON 51 finding Description Stool For Blood 06/01/2007 Stool For Blood NEGATIVE Negative Stool Color GREEN/BROWN Stool Consistency MUCOID Stool Form SEMI-FORMED CBC With Manual Diff Stat 06/01/2007 RBC Morphology NORMAL White Blood Count 10.9 CUMM High 4.8-10.8 Absolute Neutrophil Count 9.1 Atypical Lymph 2 % 0-6 Band Neutrophil 2 % 0-8 Hematocrit 39 % 35-47 Hemoglobin 13.6 g/dL 12.0-16.0 Lymphocyte 7 % 5-47 Mean Corpuscular HGB Cone 35 g/dL 32-36 Mean Corpuscular Hemoglob 29 pg 27-31 Mean Corpuscular Volume 82 um3 79-97 Monocyte 7 % 0-13 Mean Platelet Volume 9.4 um3 7.4-10.4 Platelet Count 172 CUMM 150-450 Polysegmented Neutrophil 82 % 38-83 Red Cell Count 4.70 CUMM 4.2-5.4 Redcell Distribution WDTH 13 % 10.5-15 Amylase Stat 06/01/2007 Amylase 84 U/L 30-125 Laboratory test finding 06/01/2007 Lipase 27 U/L 22-51 P33S 06/01/2007 One Over Creatinine 1.00 Anion Gap 7.0 mmol/L 2-11 52 Albumin/Globulin Ratio 1.1 1-3 Albumin 3.9 GM/DL 3.6-5.4 Alkaline Phosphatase 79 U/L 30-110 Alt (SGPT) 16 U/L 14-54 Ast (Sgot) 21 U/L 12-42 BUN 19 mg/dL 6-24 Calcium 9.1 mg/dL 8.7-10.2 Chloride 111 mmol/L 101-111 Co2 (Carbon Dioxide) 21.0 mmol/L Low 22-32 Globulin 3.7 GM/DL 2-4 Glucose 115 mg/dL High 70-105 Potassium 3.7 mmol/L 3.5-5.0 Sodium 139 mmol/L 135-145 Bilirubin Total 1.1 mg/dL 0.4-1.5 Total Protein 7.6 GM/DL 6.2-8.1 BUN/Creatinine Ratio 19.0 8-20 Creatinine 1.0 mg/dL 0.5-1.4 Laboratory test finding 06/01/2007 C. Difficile Toxin A A positive test 53 B <SEE NOTE> Shiga Toxin 1 And 2 (Ehec) N^NEGATIVE BY IM <SEE NOTE> 54 Campylobacter NO GROWTH OF CAM <SEE NOTE> 55 Stool Cult Sensitivity NEGATIVE FOR THE <SEE NOTE> 56 P33S 03/13/2007 One Over Creatinine 1.00 Anion Gap 4.0 mmol/L 2-11 57 Albumin/Globulin Ratio 1.1 1-3 Albumin 3.6 GM/DL 3.6-5.4 Alkaline Phosphatase 78 U/L 30-110 Alt (SGPT) 15 U/L 14-54 Ast (Sgot) 20 U/L 12-42 BUN 15 mg/dL 6-24 Calcium 8.9 mg/dL 8.7-10.2 Chloride 107 mmol/L 101-111 Co2 (Carbon Dioxide) 25.0 mmol/L 22-32 Globulin 3.3 GM/DL 2-4 Glucose 101 mg/dL 70-105 Potassium 3.7 mmol/L 3.5-5.0 Sodium 136 mmol/L 135-145 Bilirubin Total 0.7 mg/dL 0.4-1.5 Total Protein 6.9 GM/DL 6.2-8.1 BUN/Creatinine Ratio 15.0 8-20 Creatinine 1.0 mg/dL 0.5-1.4 CBC With Electronic Diff Stat 03/13/2007 White Blood Count 8.2 CUMM 4.8- 10.8 Abs Basophils 0 0-0.2 Abs Eosinophils 0.1 0-0.6 Absolute Neutrophil Count 5.9 1.5-7.7 Abs Lymphs 1.7 1.0-4.8 Abs Mononuclear 0.5 0-0.8 Basophil % 0.3 % 0-2 Hematocrit 36 % 35-47 Hemoglobin 12.4 g/dL 12.0-16.0 Eosinophil % 1.6 % 0-6 Gran % 71.7 % 38-83 Lymph % 20.7 % 20-45 Mean Corpuscular HGB Cone 35 g/dL 32-36 Mean Corpuscular Hemoglob 29 pg 27-31 Mean Corpuscular Volume 85 um3 79-97 Mean Platelet Volume 9.6 um3 7.4-10.4 Mononuclear % 5.7 % 1-9 Platelet Count 200 CUMM 150-450 Red Cell Count 4.22 CUMM 4.2-5.4 Redcell Distribution WDTH 14 % 10.5-15 Comp Metabolic Panel 03/10/2007 One Over Creatinine 1.11 58 Anion Gap 8.0 mmol/L 2-11 58, 59 Albumin/Globulin Ratio 1.1 1-3 58 Albumin 3.8 GM/DL 3.6-5.4 58 Alkaline Phosphatase 79 U/L 30-110 58 Alt (SGPT) 15 U/L 14-54 58 Ast (Sgot) 18 U/L 12-42 58 BUN 21 mg/dL 6-24 58 Calcium 9.1 mg/dL 8.7-10.2 58 Chloride 105 mmol/L 101-111 58 Co2 (Carbon Dioxide) 23.0 mmol/L 22-32 58 Globulin 3.4 GM/DL 2-4 58 Glucose 86 mg/dL 70-105 58 Potassium 4.2 mmol/L 3.5-5.0 58 Sodium 136 mmol/L 135-145 58 Bilirubin Total 0.9 mg/dL 0.4-1.5 58 Total Protein 7.2 GM/DL 6.2-8.1 58 BUN/Creatinine Ratio 23.3 High 8-20 58 Creatinine 0.9 mg/dL 0.5-1.4 58 Laboratory test finding 03/10/2007 GGTP 27 U/L 7-50 58 Magnesium 1.9 mg/dL 1.7-2.6 58 CBC W/ Electronic Diff 03/10/2007 White Blood Count 6.8 CUMM 4.8-10.8 58 Abs Basophils 0 0-0.2 58 Abs Eosinophils 0.1 0-0.6 58 Absolute Neutrophil Count 4.8 1.5-7.7 58 Abs Lymphs 1.5 1.0-4.8 58 Abs Mononuclear 0.4 0-0.8 58 Basophil % 0.4 % 0-2 58 Hematocrit 38 % 35-47 58 Hemoglobin 12.9 g/dL 12.0-16.0 58 Eosinophil % 1.4 % 0-6 58 Gran % 70.6 % 38-83 58 Lymph % 21.8 % 20-45 58 Mean Corpuscular HGB Cone 34 g/dL 32-36 58 Mean Corpuscular Hemoglob 28 pg 27-31 58 Mean Corpuscular Volume 84 um3 79-97 58 Mean Platelet Volume 9.3 um3 7.4-10.4 58 Mononuclear % 5.8 % 1-9 58 Platelet Count 242 CUMM 150-450 58 Red Cell Count 4.59 CUMM 4.2-5.4 58 Redcell Distribution WDTH 14 % 10.5-15 58 CBC With Manual Diff 02/26/2007 White Blood Count 10.0 CUMM 4.8-10.8 Absolute Neutrophil Count 7.7 Anisocytosis SLIGHT Hematocrit 36 % 35-47 Hemoglobin 12.5 g/dL 12.0-16.0 Lymphocyte 21 % 5-47 Mean Corpuscular HGB Cone 35 g/dL 32-36 Mean Corpuscular Hemoglob 29 pg 27-31 Mean Corpuscular Volume 84 um3 79-97 Monocyte 2 % 0-13 Mean Platelet Volume 9.6 um3 7.4-10.4 Platelet Count 178 CUMM 150-450 Polysegmented Neutrophil 77 % 38-83 Red Cell Count 4.25 CUMM 4.2-5.4 Redcell Distribution WDTH 13 % 10.5-15 Basic Metabolic Panel Stat 02/26/2007 One Over Creatinine 1.11 Anion Gap 5.0 mmol/L 2-11 60 BUN 16 mg/dL 6-24 Calcium 8.8 mg/dL 8.7-10.2 Chloride 108 mmol/L 101-111 Co2 (Carbon Dioxide) 23.0 mmol/L 22-32 Glucose 105 mg/dL 70-105 Potassium 4.1 mmol/L 3.5-5.0 Sodium 136 mmol/L 135-145 BUN/Creatinine Ratio 17.8 8-20 Creatinine 0.9 mg/dL 0.5-1.4 P33S 02/05/2007 One Over Creatinine 0.90 Anion Gap 10.0 mmol/L 2-11 61 Albumin/Globulin Ratio 1.0 1-3 Albumin 3.8 GM/DL 3.6-5.4 Alkaline Phosphatase 69 U/L 30-110 Alt (SGPT) 14 U/L 14-54 Ast (Sgot) 26 U/L 12-42 BUN 16 mg/dL 6-24 Calcium 9.1 mg/dL 8.7-10.2 Chloride 109 mmol/L 101-111 Co2 (Carbon Dioxide) 19.0 mmol/L Low 22-32 Globulin 3.7 GM/DL 2-4 Glucose 163 mg/dL High 70-105 Potassium 3.7 mmol/L 3.5-5.0 Sodium 138 mmol/L 135-145 Bilirubin Total 0.9 mg/dL 0.4-1.5 Total Protein 7.5 GM/DL 6.2-8.1 BUN/Creatinine Ratio 14.5 8-20 Creatinine 1.1 mg/dL 0.5-1.4 CBC With Electronic Diff Stat 02/05/2007 White Blood Count 8.1 CUMM 4.8- 10.8 Abs Basophils 0 0-0.2 Abs Eosinophils 0.1 0-0.6 Absolute Neutrophil Count 6.2 1.5-7.7 Abs Lymphs 1.4 1.0-4.8 Abs Mononuclear 0.4 0-0.8 Basophil % 0.4 % 0-2 Hematocrit 40 % 35-47 Hemoglobin 13.5 g/dL 12.0-16.0 Eosinophil % 1.0 % 0-6 Gran % 76.9 % 38-83 Lymph % 16.8 % Low 20-45 Mean Corpuscular HGB Cone 34 g/dL 32-36 Mean Corpuscular Hemoglob 28 pg 27-31 Mean Corpuscular Volume 84 um3 79-97 Mean Platelet Volume 9.3 um3 7.4-10.4 Mononuclear % 4.9 % 1-9 Platelet Count 199 CUMM 150-450 Red Cell Count 4.76 CUMM 4.2-5.4 Redcell Distribution WDTH 13 % 10.5-15 HCG Qualitative Stat 02/05/2007 Serum Qual HCG NEGATIVE Negative 62 Arterial Blood Gas Stat 02/05/2007 Base Excess -5.1 Low -2.0-2.0 Device ROOM AIR Bicarbonate 18.6 mmol/L Low 19-31 O2 Saturation 99 % High 95-98 Pco2 30 mmHg Low 35-45 PH 7.40 7.35-7.45 Po2 116 mmHg High 80-100 Laboratory test finding 02/05/2007 Nortriptyline (Pamelor) 140 NG/ML 50.0 -150.0 63 P33S 01/15/2007 One Over Creatinine 0.90 Anion Gap 6.0 mmol/L 2-11 64 Albumin/Globulin Ratio 1.4 1-3 Albumin 3.9 GM/DL 3.6-5.4 Alkaline Phosphatase 64 U/L 30-110 Alt (SGPT) 15 U/L 14-54 Ast (Sgot) 15 U/L 12-42 BUN 18 mg/dL 6-24 Calcium 9.1 mg/dL 8.7-10.2 Chloride 104 mmol/L 101-111 Co2 (Carbon Dioxide) 24.0 mmol/L 22-32 Globulin 2.8 GM/DL 2-4 Glucose 98 mg/dL 70-105 Potassium 3.6 mmol/L 3.5-5.0 Sodium 134 mmol/L Low 135-145 Bilirubin Total 1.1 mg/dL 0.4-1.5 Total Protein 6.7 GM/DL 6.2-8.1 BUN/Creatinine Ratio 16.4 8-20 Creatinine 1.1 mg/dL 0.5-1.4 CBC With Electronic Diff Stat 01/15/2007 White Blood Count 8.3 CUMM 4.8- 10.8 Abs Basophils 0 0-0.2 Abs Eosinophils 0.1 0-0.6 Absolute Neutrophil Count 5.6 1.5-7.7 Abs Lymphs 2.1 1.0-4.8 Abs Mononuclear 0.5 0-0.8 Basophil % 0.6 % 0-2 Hematocrit 37 % 35-47 Hemoglobin 12.8 g/dL 12.0-16.0 Eosinophil % 1.2 % 0-6 Gran % 66.0 % 38-83 Lymph % 26.0 % 20-45 Mean Corpuscular HGB Cone 35 g/dL 32-36 Mean Corpuscular Hemoglob 30 pg -31 Mean Corpuscular Volume 85 um3 79-97 Mean Platelet Volume 9.6 um3 7.4-10.4 Mononuclear % 6.2 % 1-9 Platelet Count 180 CUMM 150-450 Red Cell Count 4.32 CUMM 4.2-5.4 Redcell Distribution WDTH 13 % 10.5-15 Basic Metabolic Panel Stat 01/15/2007 One Over Creatinine 1.00 Anion Gap 8.0 mmol/L 2-11 65 BUN 20 mg/dL 6-24 Calcium 8.7 mg/dL 8.7-10.2 Chloride 107 mmol/L 101-111 Co2 (Carbon Dioxide) 23.0 mmol/L 22-32 Glucose 95 mg/dL 70-105 Potassium 3.6 mmol/L 3.5-5.0 Sodium 138 mmol/L 135-145 BUN/Creatinine Ratio 20.0 8-20 Creatinine 1.0 mg/dL 0.5-1.4 Basic Metabolic Panel Stat 01/15/2007 One Over Creatinine 0.90 Anion Gap 6.0 mmol/L 2-11 66 BUN 18 mg/dL 6-24 Calcium 9.1 mg/dL 8.7-10.2 Chloride 104 mmol/L 101-111 Co2 (Carbon Dioxide) 24.0 mmol/L 22-32 Glucose 98 mg/dL 70-105 Potassium 3.6 mmol/L 3.5-5.0 Sodium 134 mmol/L Low 135-145 BUN/Creatinine Ratio 16.4 8-20 Creatinine 1.1 mg/dL 0.5-1.4 CBC With Electronic Diff Stat 01/15/2007 White Blood Count 7.1 CUMM 4.8- 10.8 Abs Basophils 0 0-0.2 Abs Eosinophils 0.1 0-0.6 Absolute Neutrophil Count 5.1 1.5-7.7 Abs Lymphs 1.5 1.0-4.8 Abs Mononuclear 0.5 0-0.8 Basophil % 0.4 % 0-2 Hematocrit 38 % 35-47 Hemoglobin 12.9 g/dL 12.0-16.0 Eosinophil % 0.9 % 0-6 Gran % 70.8 % 38-83 Lymph % 20.9 % 20-45 Mean Corpuscular HGB Cone 34 g/dL 32-36 Mean Corpuscular Hemoglob 29 pg -31 Mean Corpuscular Volume 84 um3 79-97 Mean Platelet Volume 9.0 um3 7.4-10.4 Mononuclear % 7.0 % 1-9 Platelet Count 180 CUMM 150-450 Red Cell Count 4.47 CUMM 4.2-5.4 Redcell Distribution WDTH 14 % 10.5-15 1 *Ascorbic acid is present which may interfere with detection of blood. 2 It is recognized that currently available assays for the detection of antibodies to HIV-1 and/or HIV-2 may not detect all infected individuals. HIV antibodies may be undetectable in some stages of the infection and in some clinical conditions. The performance of this assay has not been established for populations of infants or children. Assayed by Chemiluminescence Microparticle Immunoassay on the Siemens Advia Centaur CP. Values obtained with different methods or kits cannot be used interchangeably.The diagnostic specificity of the ADVIA Centaur 1/O/2 Enhanced assay in the low risk population was 99.90% (6052/6058) with a 95% confidence interval of 99.78 to 99.96%. 3 Acute inflammation: >10.00 4 No interferon-gamma response to M. tuberculosis antigens was detected. Infection with M. tuberculosis is unlikely. A negative result alone does not exclude infection with M. tuberculosis. For detailed information regarding test interpretation see: [email or web address]-[email or web address]/ [email or web address] 5 Test Performed by: [facility] [employer] - [facility] [address] [place] [id number] 6 REFERENCE VALUE 5.0-15.0 (Trough) ADDITIONAL INFORMATION Target steady-state trough concentrations vary depending on the type of transplant, concomitant immunosuppression, clinical/institutional protocols, and time post-transplant. Results should be interpreted in conjunction with this clinical information and any physical signs/symptoms of rejection/toxicity. Testing performed by Liquid Chromatography-Tandem Mass Spectrometry (LC-MS/MS). This test was developed and its performance characteristics determined by [facility] in a manner consistent with CLIA requirements. This test has not been cleared or approved by the U.S. Food and Drug Administration. Test Performed by: [facility] - [facility] [address] [place] [address] 7 Because ethnic data is not always readily available, this report includes an eGFR for both -Americans and non- Americans. The National Kidney Disease Education Program (NKDEP) does not endorse the use of the MDRD equation for patients that are not between the ages of 18 and 70, are , have extremes of body size, muscle mass, or nutritional status, or are non- or non-. According to the National Kidney Foundation, irrespective of diagnosis, the stage of the disease is based on the level of kidney function: Stage Description GFR(mL/min/1.73 m(2)) 1 Kidney damage with normal or decreased GFR 90 2 Kidney damage with mild decrease in GFR 60-89 3 Moderate decrease in GFR 30-59 4 Severe decrease in GFR 15-29 5 Kidney failure <15 (or dialysis) 8 REFERENCE VALUE <4.0 (Negative) Test Performed by: [facility] - [place] [id number] 9 Negative serology. Celiac disease unlikely. However, approximately 10% of patients with celiac disease are seronegative. Also, patients who are already adhering to a gluten-free diet may be seronegative. If celiac disease is highly clinically suspected, consider HLA-DQ typing. Test Performed by: [facility] - [address] [address] 10 RESULT: 02:01,05 REFERENCE VALUE Not Applicable 11 RESULT: 03:01,03:03 DQ Serologic Equivalent: 7,9 REFERENCE VALUE Not Applicable 12 The absence of HLA celiac permissive genes would make the presence of celiac disease unlikely. ADDITIONAL INFORMATION Method: Molecular typing of HLA antigens performed using reverse SSOP and/or SSP methods, reported as serological equivalents and low to medium resolution molecular values. Performing Laboratory CLIA# [id number] Test Performed by: [place] [address] 13 Test Performed by: [place] [address] 14 REFERENCE VALUE <20.0 (Negative) Test Performed by: [place] [address] 15 Because ethnic data is not always readily available, this report includes an eGFR for both -Americans and non- Americans. The National Kidney Disease Education Program (NKDEP) does not endorse the use of the MDRD equation for patients that are not between the ages of 18 and 70, are , have extremes of body size, muscle mass, or nutritional status, or are non- or non-. According to the National Kidney Foundation, irrespective of diagnosis, the stage of the disease is based on the level of kidney function: Stage Description GFR(mL/min/1.73 m(2)) 1 Kidney damage with normal or decreased GFR 90 2 Kidney damage with mild decrease in GFR 60-89 3 Moderate decrease in GFR 30-59 4 Severe decrease in GFR 15-29 5 Kidney failure <15 (or dialysis) 16 REFERENCE VALUE <1.0 (Negative) 17 REFERENCE VALUE <1.0 (Negative) 18 REFERENCE VALUE <1.0 (Negative) 19 REFERENCE VALUE <1.0 (Negative) 20 REFERENCE VALUE <1.0 (Negative) 21 REFERENCE VALUE <1.0 (Negative) Test Performed by: [facility] - [address] [address] 22 ADDITIONAL INFORMATION This test was developed and its performance characteristics determined by [facility] in a manner consistent with CLIA requirements. This test has not been cleared or approved by the U.S. Food and Drug Administration. Test Performed by: [facility] - [facility] [address] [place] [address] 23 Test Performed by: [address] [address] Test Performed by: [facility] - [address] [address] 25 REFERENCE VALUE <30.0 (Negative) Test Performed by: [address] [address] 26 REFERENCE VALUE Not Applicable 27 HLA-B27 antigen was detected. Approximately 8% of the normal population carries the HLA-B27 antigen. HLA-B27 is present in approximately 89% of patients with ankylosing spondylitis, 79% of patients with Perry's syndrome and 42% of patients with juvenile rheumatoid arthritis. However, lacking other data, it is not diagnostic for these disorders. This test does not differentiate B27 alleles. i.e. B*27:05, B*27:06, etc. ADDITIONAL INFORMATION Method: Flow Cytometry Performing Laboratory CLIA# [id number] Test Performed by: [address] [address] 28 If is still suspected, please repeat test after 48 to 72 hours. . 29 THE URINE SPECIMEN WAS TESTED AT THE LISTED CUTOFFS: DRUG CLASS TEST LEVEL (NG/ML) AMPHETAMINES 300 BARBITUATES 200 BENZODIAZEPINE METABOLITES 200 COCAINE METABOLITES 300 CANNABINOIDS 25 OPIATES 200 PCP 25 THIS IS A SCREENING PROCEDURE. POSITIVE RESULTS ARE NOT CONFIRMED. SPECIMEN WAS RECEIVED WITHOUT CHAIN OF CUSTODY. RESULTS SHOULD BE USED FOR MEDICAL PURPOSES ONLY. . 30 The detection limit for SALICYLATE is 4.0 mg/dl. Values less than 4.0 mg/dl cannot be accurately measured. . 31 The detection limit for ETHANOL is 10.0 mg/dl . Values less than 10.0 mg/dl cannot be accurately measured. . 32 TOXIC LEVELS: GREATER THAN 150 MCG/ML @ 4HR POST INGEST GREATER THAN 50 MCG/ML @ 12HR POST INGEST The detection limit for ACETAMINOPHEN is 10.0 mcg/ml . Values less than 10.0 mcg/ml cannot be accurately measured. . 33 Anion gap measurement may be of limited value in the presence of any alkalosis, especially in a combined acid base disorder. . 34 Note change in reference range as of 12/10/07. The change was based on recommendations from the [place] [employer]. 35 Please note change in reference range effective 07 . 36 SPECIMEN CONTAINS NORMAL URETHRAL OR PERINEAL FADI AND DOES NOT SUGGEST URINARY TRACT INFECTION 37 Anion gap measurement may be of limited value in the presence of any alkalosis, especially in a combined acid base disorder. . 38 Note change in reference range as of 12/10/07. The change was based on recommendations from the [place] [employer]. 39 Please note change in reference range effective 07 . 40 If is still suspected, please repeat test after 48 to 72 hours. . 41 Lymphopenia % 42 THE URINE SPECIMEN WAS TESTED AT THE LISTED CUTOFFS: DRUG CLASS TEST LEVEL (NG/ML) AMPHETAMINES 300 BARBITUATES 200 BENZODIAZEPINE METABOLITES 200 COCAINE METABOLITES 300 CANNABINOIDS 25 OPIATES 200 PCP 25 THIS IS A SCREENING PROCEDURE. POSITIVE RESULTS ARE NOT CONFIRMED. SPECIMEN WAS RECEIVED WITHOUT CHAIN OF CUSTODY. RESULTS SHOULD BE USED FOR MEDICAL PURPOSES ONLY. . 43 The detection limit for ETHANOL is 10.0 mg/dl . Values less than 10.0 mg/dl cannot be accurately measured. . 44 Anion gap measurement may be of limited value in the presence of any alkalosis, especially in a combined acid base disorder. . 45 The campground attendant and regulatory agencies both recommend that a throat culture for beta strep be performed if a Rapid Group A Strep assay yields a negative result. Therefore a culture will be automatically performed on all negative samples. N^NEGATIVE FOR GROUP A STREP BY ENZYME IMMUNOASSAY^STREPA 46 NEGATIVE FOR GROUP A STREP 47 FEW [STAPHYLOCOCCUS AUREUS] WITH SCANT NORMAL THROAT FADI STAPHYLOCOCCUS AUREUS 48 Anion gap measurement may be of limited value in the presence of any alkalosis, especially in a combined acid base disorder. . 49 If is still suspected, please repeat test after 48 to 72 hours. . 50 SCANT NORMAL URETHRAL OR PERINEAL FADI 10^1-10,000 ORGANISMS/ML (FEW)^CCU 51 SF^SEMI-FORMED^STFORM 52 Anion gap measurement may be of limited value in the presence of any alkalosis, especially in a combined acid base disorder. . 53 A positive test confirms the presence of toxins A and/or B only. A physician must use the test results in conjunction with other diagnostic procedures and the patient's clinical condition to establish a diagnosis of C.difficile-associated disease. Isolates of C. sordellii may react with this test due to immunological identitiy of the C. sordellii toxins. The performance of specimens from pediatric patients has not been evaluated. Two distinct groups have been identified that can harbor C. difficile asymptomatically at very high rates. Colonization rates of up to 50% and higher have been reported in infants and rates of up to 32% in cystic fibrosis patients. N^NEGATIVE BY IMMUNOASSAY^CDT 54 N^NEGATIVE BY IMMUNOCHROMATOGRAPHIC ASSAY^ST1 N^NEGATIVE BY IMMUNOCHROMATOGRAPHIC ASSAY^ST2 55 NO GROWTH OF CAMPYLOBACTER AFTER 48 HOURS 56 NEGATIVE FOR THE ENTERIC PATHOGENS - SALMONELLA, SHIGELLA, AND YERSINIA VIBRIO AND E. COLI 0157 NOT ROUTINELY TESTED FOR IN A STOOL CULTURE. PLEASE SUBMIT SAMPLE WITH SPECIFIC REQUEST FOR DESIRED ORGANISM(S). 57 Anion gap measurement may be of limited value in the presence of any alkalosis, especially in a combined acid base disorder. . 58 Fax results to Jaden Miller NP 59 Anion gap measurement may be of limited value in the presence of any alkalosis, especially in a combined acid base disorder. . 60 Anion gap measurement may be of limited value in the presence of any alkalosis, especially in a combined acid base disorder. . 61 Anion gap measurement may be of limited value in the presence of any alkalosis, especially in a combined acid base disorder. . 62 If is still suspected, please repeat test after 48 to 72 hours. . 63 THE PERFORMANCE CHARACTERISTICS OF THIS TEST WERE ESTABLISHED THROUGH VALIDATION BY [employer], AND NO APPROVAL IS REQUIRED BY THE U.S. FOOD AND DRUG ADMINISTRATION (FDA). [employer] IS REGULATED UNDER THE CLINICAL LABORATORY IMPROVEMENT AMENDMENTS OF 1988 ( CLIA ) QUALIFIED TO PERFORM HIGH COMPLEXITY CLINICAL TESTING. TEST PERFORMED BY: [employer] [id number] [place] [id number] 64 Anion gap measurement may be of limited value in the presence of any alkalosis, especially in a combined acid base disorder. . 65 Anion gap measurement may be of limited value in the presence of any alkalosis, especially in a combined acid base disorder. . 66 Anion gap measurement may be of limited value in the presence of any alkalosis, especially in a combined acid base disorder. . Procedures Date CPT Code Description Status 05/30/2017 84955 Admin Of Inj Completed 05/21/2017 25447 Inject/Drain Joint/Bursa Small Completed 12/03/2016 07727 Anoscopy Completed 08/27/2016 77885 Aspiration &/Or Inj Of Ganglion Cyst(S) Any Completed Location Encounters Type Date Location Provider CPT E/M Dx Office Visit 06/18/2017 [facility] Sean Cruz M.D. 32696 M05.79 8:20a Of [employer] Z79.899 M54.2 B37.0 R31.9 Office Visit 05/30/2017 1:30p [facility] Sean Cruz, 54990 M05.79 Of [employer] M.D. Z79.899 M25.541 M25.542 M79.674 M54.2 M54.6 M54.5 Office Visit 05/19/2017 4:40p [facility] Sean Cruz, 81293 M05.79 Of [place].Doris. Z79.899 M25.571 M54.2 L30.9 Office Visit 04/25/2017 1:00p [facility] Cruz, [address] R76.0 [employer] Brannon.Mitch R05 M05.79 L30.9 Office Visit 12/03/2016 10:00a [facility] [address] K60.2 [employer] M.Doris. Office Visit 08/27/2016 1:15p [facility] [place] [address] M67.442 C.M.A. Office Visit 10/19/2007 2:00p DO Not Use [employer] At [facility], [address] 346.00 Thu Yanez,FACP 296.33 Office Visit 08/17/2007 3:40p DO Not Use [employer] At [facility], [address] V72.84 Thu Yanez,FACP 474.9 724.2 346.00 Office Visit 07/07/2007 11:00a DO Not Use [employer] At [facility], [address] 751.61 Thu Yanez,FACP V42.7 346.00 311 474.9 Office Visit 06/01/2007 2:40p DO Not Use [employer] At [facility], [address] 789.06 Thu Yanez,FACP V42.7 296.33 112.0 Office Visit 03/19/2007 9:20a DO Not Use [employer] At [facility], [address] 535.40 Thu Yanez,FACP V42.7 311 041.11 346.00 Plan of Care Future Appointment(s):07/31/2017 8:40 am - Sean Anthony, M.D. 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 Once the medication is stopped, it should not be restarted until the patient has discussed it with thepatient's doctor.We also discussed that long-term use of anti-TNF agents may increase the risk of cancers such as lymphoma and skin cancer. There are rare neurologic complications from the use of these medications. They should be avoided in the setting of significant heart failure. I also advised that patient keep up to date with flu vaccines, prevnar vaccines and pneumococcal vaccines. The patient expressed understanding.Consider flu sqprdpsB27.2 CervicalgiaNew Therapy :Physical RfuvwilK16.0 Candidal stomatitisNew Medication:Nystatin [id number] Unit/ MLR31.9 Hematuria, unspecifiedFollow up:F/u in 6 weeks or sooner if needed Take pain medication only if needed
--- OUTSIDE RECORDS SUMMARY | 2017-06-26 11:20 | XMS REPORT ---
:1980 External Reference #:[id number] Author Organization [facility] Address [address] [address] Phone [phone] Care Team Providers Name Role Phone Neil Bernard MD Care Team Information Time Cycle Operator Unavailable Neil Bernard MD Primary Care Physician Unavailable Payers Type Date Identification Numbers Payment Provider Subscriber Commercial Effective: Policy Number: [id number] [employer] Leatha Prado 2007 Medicaid PayID: [id number] [address] [address] [place] [address] Problems Date Description Provider Status Onset: 03/19/2007 [...] 08/17/2007 Low back pain Meño Markham, Active Beau,FACP Family History Date Family Member(s) Problem(s) Comments General Diabetes General Heart Disease General Hypertension General Cancer Maternal Grandmother due to Heart Disease () Social History Type Date Description Comments Marital Status 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 Tacrolimus Active 1mg 2 in am, 1 in Unknown /0000 pm Oxycodone HCL Active Tablets 5mg 90tab Take one by Sean / s mouth every Anthony, eight hours as M.D. needed for pain Clonazepam Active Tablets 2mg 1 by mouth Unknown /0000 three times a day Benadryl Active Tablets 25mg 1-2 tabs twice Unknown Allergy /0000 a day for itching Ibuprofen Active Tablets 200mg 1 by mouth Unknown /0000 three times a day with food as needed Lidocaine 00 Active Patches 5% apply patch up Unknown /0000 to 12 hours once a day. Ranitidine HCL Active Capsules 150mg take one Unknown /0000 capsule by mouth twice a day prn Prednisone Active Tablets 10mg 90tab Take 4 tabs Sean /0000 s daily for 4 Anthony, days then 3 M.D. tabs daily for 4 days then 2 tabs daily for 4 days then 1 tab daily ongoing Magnesium-Oxid 05/28 Hx Tablets 400(241.3 30tab take one mg) mg s capsule/tablet Anthony, - daily by mouth Beau 05/30 Plaquenil 04/25 Hx Tablets 200mg 60tab 1 by mouth M05.79 s every day for 1 Anthony, - week then 2 by Beau 05/30 mouth daily ongoing Dilaudid 10/18 Hx Tablets 4mg 120ta 1 tab qid prn Meño Jna Cash M.D.,[facility] 08/26 Topamax 10/18 Hx Tablets 50mg 60tab 1 po bid Meño Jan Adams M.D.,[facility] 08/26 Lomotil 10/05 Hx Tablets 2.5mg 40tab 1 tab qid prn Meño Jan Adams M.D.,[facility] 10/18 Remeron 08/16 Hx Tablets 30mg 30tab 1 Tabs PO Q hs 296.33 Meño Jan Adams M.D.,[facility] 08/26 Cipro 07/08 Hx Tablets 500mg 14tab 1 PO bid x s 7dJan Concepcion M.D.,[facility] 08/16 Frova 07/06 Hx Tablets 2.5mg 12tab q2h prn mdd2 346.00 Meño Jan Adams M.D.,[facility] 08/26 Prednisolone 06/01 Hx Tablets 5mg 60tab 1 tab qod Meño Jan Adams M.D.,[facility] 07/06 Mycelex 06/01 Hx Rolly 10mg 50uni 5x/day for 10 112.0 Meño ts Jan Richardson M.D.,[facility] 08/16 Remeron 06/01 Hx Tablets 30mg 30tab 1/2 tab po q hs 296.33 Jan Adams M.D.,[facility] 08/16 Avelox 06/01 Hx Tablets 400mg 6tabs 1 qd for 6 days Meño Jan Patino M.D.,[facility] 07/06 Hydrocodone/Ho 05/29 Hx Syrup 5-1.5/5 240ml 5 cc quid prn Meño matropine /2007 cough Jan Patino M.D.,[facility] 07/06 Zithromax 05/28 Hx Tablets 250mg 1Pak take as 466.0 Meño Z-Tip /2007 directed Jan Patino M.D.,[facility] 07/06 Hydrocodone/Gu 05/28 Hx Syrup 5-100/5 150cc 5 cc q 8 hours 466.0 Iram Coyne aifenesin prn cough Jan Patino M.D.,[facility] 06/01 Prograf 03/19 Hx Capsules 1mg 3 PO bid Meño Jan Patino M.D.,[facility] 08/26 Cellcept 03/19 Hx Tablets 500mg 1 bid Meño /2006 Jan Patino M.D.,[facility] 08/26 Omeprazole 03/19 Hx Capsules 20mg 30cap qd PO Meño Jan Gonzalez M.D.,[facility] 07/06 Topamax 03/19 Hx Tablets 25mg 120ta 2 Tabs bid Meño Jan Cash M.D.,[facility] 10/18 Frova 03/19 Hx Tablets 2.5mg 18tab Q2H prn MDD2 Meño Jan Adams M.D.,[facility] 05/28 Fluoxetine HCL 03/19 Hx Capsules 20mg 30cap PO qd Meño Jan Adams M.D.,[facility] 05/28 Promethazine 03/19 Hx Tablets 25mg 1 qhs prn Meño MOLINA /2006 Jan Patino M.D.,[facility] 08/16 Prilosec 03/19 Hx Capsules 20mg 30cap 1 po qd 535.40 Meño Jan Gonzalez M.D.,[facility] 08/26 Reglan 03/19 Hx Tablets 5mg 30tab qac prn 535.40 Meño s Jan Patino M.D.,[facility] 05/28 Vistaril 03/19 Hx Capsules 25mg 346.00 Jan Patino M.D.,[facility] 08/26 Dilaudid Hx Tablets 2mg 120ta 1-2 tid po prn bs Jan Patino M.D.,[facility] 10/18 Medications Administered in Office Medication Date Status Form Strength Qnty SIG Indications Ordering Provider Triamcinolone 05/30/ Administered Injection Sean (Kenalog) 2017 Beau Cruz Triamcinolone 05/21/ Administered Injection Sean (Kenalog) 2017 Beau Cruz No Injection 08/27/ Administered Injection Gordo 2016 MD Brayan Vital Signs Date Vital Result Comment 05/30/2017 Height 65.5 inches 5'5.50" Heart Rate [...] Color Yellow Urine Appearance Clear Urine Specific Tucker 1.010 1.010-1.030 Urine pH 5.0 5-9 Urine [...] Epithelial Cell Present Absent HIV 1/2 AB 05/21/2017 HIV 1 2 Antibody Nonreactive Nonreactive 2 Evaluation Celiac Panel 05/21/2017 Tissue Transglutaminase <1.2 U/mL 3 IgA Ab Immunoglobulin A 378 mg/dL 61 - 356 Celiac Interpretation See Comment 4 Celiac Hla 05/21/2017 Hla-Dqa1 SEE BELOW 5 Hla-DQB1 SEE BELOW 6 Celiac Gene Pairs Present? No Celiac Gene Interpretation See Comment 7 Laboratory test finding 05/21/2017 C Reactive Protein 21.13 mg/L High &lt ; 5.00 8 Erythrocyte Sed Rate 49 mm/Hr High 0-14 Quantiferon Gold TB 05/21/2017 M tuberculosis by Quantiferon Negative Negative 9 TB Ag minus Nil Result -0.01 IU/mL TB Mitogen minus Nil Result 8.32 IU/mL TB Nil Result 0.11 IU/mL 10 Comp Metabolic Panel 05/21/2017 Sodium 137 mmol/L [...] Egfr Non- 93.6 >60 Egfr 120.4 >60 11 CBC Auto Diff 05/21/2017 White Blood Count [...] 0-2 Nucleated Red Blood Cells % 0 Laboratory test finding 05/21/2017 Creatine Kinase(CK) 30 U/L 10-223 Magnesium 1.7 mg/dL Low 1.9-2.7 Tacrolimus 2.4 ng/mL 12 Laboratory test finding 04/25/2017 Rheumatoid Factor 89 IU/mL <15 13 Cyclic Citrullinated Pep Igg <15.6 U 14 Hla B27 04/25/2017 Hla B27 Positive 15 Hla B27 Interp See Comment 16 CBC Auto Diff 04/25/2017 White Blood Count [...] Egfr Non- 100.2 >60 Egfr 128.9 >60 17 Grace Igg AB Reflex 04/25/2017 SS-A/Ro Antibody 0.3 U 18 SS-B/La Antibody <0.2 U 19 Sm (Little) IgG Antibody <0.2 U 20 U1-nRNP Antibody <0.2 U 21 Scl-70 (Scleroderma) Antibody <0.2 U 22 Dianne-1 Antibody <0.2 U 23 Hepatitis Acute Panel 04/25/2017 Hepatitis C Antibody Nonreactive Nonreactive Hepatitis A AB Igm Nonreactive Nonreactive Hepatitis B Core AB Igm Nonreactive Nonreactive Hepatitis B Surface Ag Nonreactive Nonreactive Laboratory test finding 04/25/2017 Vitamin D, 1,25 Dihydroxy 45 pg/mL 18- 78 24 Complement C3 121 mg/dL 75 - 175 25 Complement C4 26 mg/dL 14 - 40 26 Anti Double Stranded Dna AB <12.3 IU/mL 27 CBC With Electronic Diff Stat 01/13/2008 [...] 11.8 8-20 Calcium 8.4 mg/dL 8.1-9.9 35 Urinalysis W/Microscopic Stat 01/04/2008 Ua Color YELLOW Appearance-Urine HAZY Specific Tucker-Ur 1.015 1.010-1.030 Esterase-Urine TRACE Negative Nitrite NEGATIVE Negative Xpjfyfxhdelb-Qr-GXI NEGATIVE Negative Protein-Urine NEGATIVE Negative PH-Urine 5.0 5-9 Blood-Urine TRACE Negative Ketones-Urine NEGATIVE Negative Bilirubin-Ur NEGATIVE Negative Glucose-Urine NEGATIVE Negative WBC-Urine 2-8 0-5 RBC-Urine 0-2 0-2 Mucus Urine TRACE Epith Cells-Ur FILLED Bacteria-Urine 2+ Laboratory test finding 01/04/2008 (HCG) Serum NEGATIVE Negative 36 P33S 01/04/2008 Sodium 139 mmol/L 135-145 Potassium [...] U/L 14-54 Ast (Sgot) 19 U/L 12-42 Amylase Stat 01/04/2008 Amylase 79 U/L 30-125 Laboratory test finding 01/04/2008 Lipase 33 U/L 22-51 Urine Culture & 01/04/2008 Urine Culture Sensitivi NF1 40 Sensitivi CBC With Electronic Diff 01/04/2008 White Blood Count 8.7 CUMM 4.8-10.8 Stat Red Cell Count 4.69 CUMM 4.2-5.4 Hemoglobin [...] Strep A 07/14/2007 Rapid Strep A [employer] runner 45 <SEE NOTE> Laboratory test 07/14/2007 Throat-Beta [...] 5-9 Protein-Urine NEGATIVE Negative RBC-Urine 0-2 0-2 Satvwcniairm-Hc-UOF NEGATIVE Negative Specific Tucker-Ur 1.016 1.010-1.030 WBC-Urine 3-5 0-5 Laboratory test [...] 4.2-5.4 Redcell Distribution WDTH 14 % 10.5-15 CBC W/ Electronic Diff 03/10/2007 White Blood [...] Redcell Distribution WDTH 14 % 10.5-15 58 Laboratory test finding 03/10/2007 GGTP 27 U/L 7-50 58 Magnesium 1.9 mg/dL 1.7-2.6 58 Comp Metabolic Panel 03/10/2007 One Over Creatinine [...] 8-20 58 Creatinine 0.9 mg/dL 0.5-1.4 58 CBC With Manual Diff 02/26/2007 White [...] g/dL 32-36 Mean Corpuscular Hemoglob 30 pg 27-31 Mean Corpuscular Volume 85 um3 [...] confidence interval of 99.78 to 99.96%. 3 REFERENCE VALUE <4.0 (Negative) Test Performed by: [place] [address] 4 Negative serology. Celiac disease unlikely. However, approximately 10% of patients with celiac disease are seronegative. Also, patients who are already adhering to a gluten-free diet may be seronegative. If celiac disease is highly clinically suspected, consider HLA-DQ typing. Test Performed by: [place] [address] 5 RESULT: 02:01,05 REFERENCE VALUE Not Applicable 6 RESULT: 03:01,03:03 DQ Serologic Equivalent: 7,9 REFERENCE VALUE Not Applicable 7 The absence of HLA celiac permissive genes would make the presence of celiac disease unlikely. ADDITIONAL INFORMATION Method: Molecular typing of HLA antigens performed using reverse SSOP and/or SSP methods, reported as serological equivalents and low to medium resolution molecular values. Performing Laboratory CLIA# [id number] Test Performed by: [place] [address] 8 Acute inflammation: >10.00 9 No interferon-gamma response to M. tuberculosis antigens was detected. Infection with M. tuberculosis is unlikely. A negative result alone does not exclude infection with M. tuberculosis. For detailed information regarding test interpretation see: [email or web address] 10 Test Performed by: [facility] [employer] [place] [address] 11 Because ethnic data is not always readily [...] 15-29 5 Kidney failure <15 (or dialysis) 12 REFERENCE VALUE 5.0-15.0 (Trough) ADDITIONAL INFORMATION Target steady-state trough concentrations vary depending on the type of transplant, concomitant immunosuppression, clinical/institutional protocols, and time post-transplant. Results should be interpreted in conjunction with this clinical information and any physical signs/symptoms of rejection/toxicity. Testing performed by Liquid Chromatography-Tandem Mass Spectrometry (LC-MS/MS). This test was developed and its performance characteristics determined by [facility] in a manner consistent with CLIA requirements. This test has not been cleared or approved by the U.S. Food and Drug Administration. Test Performed by: [facility] [employer] - [place] [id number] 13 Test Performed by: [facility] [address] [place] [address] 14 REFERENCE VALUE <20.0 (Negative) Test Performed by: [facility] - [address] [address] 15 REFERENCE VALUE Not Applicable 16 HLA-B27 antigen was detected. Approximately 8% of [...] INFORMATION Method: Flow Cytometry Performing Laboratory CLIA# [id number] Test Performed by: [address] [address] 17 Because ethnic data is not always readily [...] 15-29 5 Kidney failure <15 (or dialysis) 18 REFERENCE VALUE <1.0 (Negative) 19 REFERENCE VALUE <1.0 (Negative) 20 REFERENCE VALUE <1.0 (Negative) 21 REFERENCE VALUE <1.0 (Negative) 22 REFERENCE VALUE <1.0 (Negative) 23 REFERENCE VALUE <1.0 (Negative) Test Performed by: [facility] [employer] - [address] [address] 24 ADDITIONAL INFORMATION This test was developed and its performance characteristics determined by [facility] in a manner consistent with CLIA requirements. This test has not been cleared or approved by the U.S. Food and Drug Administration. Test Performed by: [facility] [employer] - [facility] [address] [place] [address] 25 Test Performed by: [facility] [employer] - [address] [address] 26 Test Performed by: [facility] [address] [place] [address] 27 REFERENCE VALUE <30.0 (Negative) Test Performed by: [facility] [address] [place] [address] 28 If is still suspected, please repeat [...] change was based on recommendations from the [place] [employer]. 35 Please note change in reference range effective 07 . 36 If is still suspected, please repeat test after 48 to 72 hours. . 37 Anion gap measurement may be of limited value in the presence of any alkalosis, especially in a combined acid base disorder. . 38 Note change in reference range as of 12/10/07. The change was based on recommendations from the [place] [employer]. 39 Please note change in reference range effective 07 . 40 SPECIMEN CONTAINS NORMAL URETHRAL OR PERINEAL FADI AND DOES NOT SUGGEST URINARY TRACT INFECTION 41 Lymphopenia % 42 THE URINE SPECIMEN [...] combined acid base disorder. . 45 The tar k[employer] and regulatory agencies both recommend that a [...] disorder. . 58 Fax results to Jaden Shisler, SCIENTIFIC PHOTOGRAPHER 59 Anion gap measurement may be of [...] THIS TEST WERE ESTABLISHED THROUGH VALIDATION BY [facility], AND NO APPROVAL IS REQUIRED BY THE U.S. FOOD AND DRUG ADMINISTRATION (FDA). [facility] IS REGULATED UNDER THE CLINICAL LABORATORY IMPROVEMENT AMENDMENTS OF 1988 ( CLIA ) QUALIFIED TO PERFORM HIGH COMPLEXITY CLINICAL TESTING. TEST PERFORMED BY: [facility] [id number] [place] [id number] 64 Anion gap measurement may be of [...] Procedures Date CPT Code Description Status 05/30/2017 95239 Admin Of Inj Completed 05/21/2017 24820 Inject/Drain Joint/Bursa Small Completed 12/03/2016 54090 Anoscopy Completed 08/27/2016 54466 Aspiration &/Or Inj Of Ganglion Cyst(S) Any Completed Location Encounters Type Date Location Provider CPT E/M Dx Office Visit 05/19/2017 [facility] Sean Cruz M.D. 619[address] M05.79 4:40p Of Manager Of Customer Billing Z79.899 M25.571 M54.2 L30.9 Office Visit 04/25/2017 1:00p [facility] Sean Cruz [address]83 R76.0 Tiago Yanez R05 M05.79 L30.9 Office Visit 12/03/2016 10:00a [facility], [address] K60.2 Tiago Yanez Office Visit 08/27/2016 1:15p [facility] [place] [address] M67.442 C.M.ALinda Office Visit 10/19/2007 2:00p DO Not Use Manager Of Customer Billing At Meño Markham [address] 346.00 Fleminggabe M.Doris.,FACP 296.33 Office Visit 08/17/2007 3:40p DO Not Use Manager Of Customer Billing At [facility], [address] V72.84 Fleminggabe M.Doris.,FACP 474.9 724.2 346.00 Office Visit 07/07/2007 11:00a DO Not Use Manager Of Customer Billing At [facility], [address] 751.61 Fleminggabe South.Doris.,FACP V42.7 346.00 311 474.9 Office Visit 06/01/2007 2:40p DO Not Use Manager Of Customer Billing At [facility], [address] 789.06 Fleminggabe M.Doris.,FACP V42.7 296.33 112.0 Office Visit 03/19/2007 9:20a DO Not Use Manager Of Customer Billing At [facility], [address] 535.40 Thu South.Doris.,FACP V42.7 311 041.11 346.00 Plan of Care Future Appointment(s):06/18/2017 8:20 am - Sean Cruz M.D. at [facility]05/30/2017 - Sean Cruz M.D.M05.79 Rheu arthritis w rheu factor mult site w/o org/sys involvComments:Do not start Flexeril until we find out from your transplant team that it is okay to tryZ79.899 Other group home ( current) drug ccbbzizQ59.674 Pain in right toe(s)M54.5 Low back painM54.2 IjnowfsbbqgC58.6 Pain in thoracic urupeY57.4 Changes in skin textureComments:We can start filling pain medications
--- NOTE | 2017-06-26 11:30 | RAD ---
HISTORY: Sepsis, fever COMPARISONS: May 21, 2017 VIEWS: 4: Frontal dual-energy and lateral views of the chest. FINDINGS: CARDIOMEDIASTINAL SILHOUETTE: The cardiomediastinal silhouette is normal. RADHA: The radha are normal. PLEURA: The costophrenic angles are sharp. No pleural abnormalities are noted. LUNG PARENCHYMA: The lungs are clear. ABDOMEN: The upper abdomen is clear. There is no subphrenic gas. BONES AND SOFT TISSUES: No bone or soft tissue abnormalities are noted. OTHER: None. IMPRESSION: NO ACTIVE CARDIOPULMONARY DISEASE.
[2017-06-26] MEDS ORDERED: HYDROcodone/ACETAMIN 5-325 MG* 1 TAB PO ONE (12:16)
[2017-06-26 12:26] LABS: Urine Appearance Clear; Urine Blood 2+ (Negative); Urine Color Yellow; Urine Ketones Negative (Negative); Urine Protein Negative (Negative); Urine Specific Gravity 1.011 (1.010-1.030); Urine Urobilinogen Negative (Negative)
[2017-06-26] MEDS ORDERED: HYDROmorphone INJ* 2 MG/ML CARPUJECT SYRINGE IV SLOW PU ONE ×2 (12:26→23:24)
[2017-06-26] MEDS ORDERED: NS 0.9% 250 ML* 250 ML ONE (12:54)
[2017-06-26] MEDS ORDERED: Acetaminophen TAB* 325 MG PO ONE (13:07)
[2017-06-26] MEDS ORDERED: Magnesium Sulfate 1 GM IV* 1 GM/100 ML BAG IV ONE (14:37)
--- NOTE | 2017-06-26 16:25 | RAD ---
INDICATION: Headache and vomiting COMPARISON: None TECHNIQUE: Contiguous axial sections of the axial images of the sinuses were obtained and reconstructed in the coronal and sagittal planes. FINDINGS: There is moderate mucosal thickening of the maxillary sinuses that are otherwise filled with gravity secretions. The sphenoid sinuses are clear. There is mild mucosal thickening of the bilateral ethmoid air cells. There is mild mucosal thickening of the right greater than left frontal sinuses. The ostiomeatal complexes appear patent on both sides. There is moderate deviation of the nasal septum toward the left side. The nasal passageways were otherwise clear. IMPRESSION: Paranasal sinus disease most severely affecting the bilateral maxillary sinuses.
[2017-06-26] MEDS ORDERED: diPHENhydraMINE PO* 25 MG PO ONE (21:01)
[2017-06-26] MEDS: oxyCODONE TAB* 5 MG TAB PO PRN (21:09)
[2017-06-26] MEDS: Cyclobenzaprine TAB* 10 MG PO PRN (21:09)
[2017-06-26] MEDS: Tacrolimus CAP(*) 1 MG PO SCH (21:09)
[2017-06-26] MEDS: DOXYcycline CAP(*) 100 MG PO SCH (21:10)
--- NOTE | 2017-06-26 22:40 | HP ---
CC: Dr. Bernard * HISTORY AND PHYSICAL: DATE OF ADMISSION: 06/26/17 PROVIDER: Grecia Mock NP PRIMARY CARE PROVIDER: Dr. Bernard. ATTENDING PHYSICIAN WHILE IN THE HOSPITAL: Dr. Michelle Hernandez * (dictated by Grecia Mock NP) CHIEF COMPLAINT: 1. Fever. 2. Nausea and vomiting. HISTORY OF PRESENT ILLNESS: Ms. 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 The patient states that she woke up at 4 a.m. and felt sick to her stomach. She attempted to take an old medicine for nausea, but she states it did not relieve her symptoms. She continued to toss and turn and feel nauseated and at approximately 7 o'clock, she got up, she was nauseated and started vomiting and she states that she was vomiting large amounts. She does state that initially it was undigested food and then after that was just bile. She also complains of generalized body aches and some right flank pain. She states prior to this morning feeling ill, she was in her usual state of health. She was just a little bit tired yesterday. She denies any chest pain, shortness of breath, cough, or congestion. She denies any hemoptysis. Denies any diarrhea. Denies any dysuria or hematuria. She does complain of some right flank pain that radiates to her right lower abdomen. She also reports that she recently has started on Enbrel treatment for her RA. Her first shot was 3 weeks ago. She states that she did not take a shot for a few weeks and then her last shot of Enbrel was the Friday. She also reports that she has had nasal congestion, rhinorrhea x3 weeks. She also complains of pressure to her maxillary and frontal sinuses and had pressure. Due to her history of having a liver transplant and her fever, we were asked by the emergency room physicians to evaluate her for admission. PAST MEDICAL HISTORY: Significant for: 1. 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 2. History of kidney stones. 3. History of pyelonephritis. 4. History of RA. 5. History of osteoarthritis. PAST SURGICAL HISTORY: Significant for: 1. Liver transplant. 2. History of foot surgery for bone spurs. 3. Tonsillectomy. 4. Surgery in 1979 to do with the biliary atresia. MEDICATIONS: Current medications are: 1. Ibuprofen 400 mg b.i.d. with meals. 2. Oxycodone 5 mg p.r.n. at bedtime. 3. Klonopin 0.5 at bedtime. 4. Benadryl 50 mg p.o. at bedtime. 5. Zantac 150 mg p.o. b.i.d. 6. Prednisone 10 mg p.o. daily, which she currently reports she has not taken in 2 weeks. 7. Cyclobenzaprine 10 mg p.o. b.i.d. 8. Prograf cap 1 mg q.p.m. and 2 mg p.o. q.a.m. ALLERGIES TO MEDICATIONS: Allergic to CEFTRIAXONE, GENTAMICIN, MORPHINE, ASPIRIN, PENICILLINS. She also reports allergies to ACETAMINOPHEN and IBUPROFEN but does take them at home. They are in limited doses due to her history of having a liver transplant. FAMILY HISTORY: There is no reported family history of coronary artery disease , diabetes, or cancers. SOCIAL HISTORY: She denies history of smoking. No alcohol or illicit drug use. In the event she is unable to make her own decisions, her surrogate decision maker is her , Stefan Prado. REVIEW OF SYSTEMS: There were documented fevers. There has been no anorexia. She denies any chest pain or edema. Denies cough or cold symptoms. Denies any hemoptysis or shortness of breath. She does report some nausea and vomiting. Denies diarrhea. She does report right flank pain that radiates to her right abdomen. She denies any gross hematuria or dysuria. Denies any focal weakness or sensory loss. Denies any visual complaints. Denies any dysphagia. There has been no arthralgias or myalgias. No rashes or lesions. There is no anxiety or psychosis. PHYSICAL EXAMINATION GENERAL: At this time, Ms. Prado is a 36-year-old female, resting on the stretcher in the ER. She does not appear to be in any acute distress. VITAL SIGNS: Initial temp was 102.5, heart rate was 131, respirations were 22, O2 saturation was 100%, blood pressure 125/82. HEENT: Head is atraumatic and normocephalic. Eyes: EOMs are intact. Sclerae anicteric, not pale. Oral mucosa appeared to be moist. She does have tenderness with maxillary and frontal sinus palpation. NECK: Supple. LUNGS: Lung sounds are clear to auscultation bilaterally. No wheezes, rales, or rhonchi. CARDIAC: S1, S2. Regular rate and rhythm. No murmurs, rubs, or gallops. ABDOMEN: Soft. It is nontender. Bowel sounds are present. EXTREMITIES: Pulses +2 throughout. She is moving all 4 extremities with 5/5 strength. NEUROLOGIC: She is alert and oriented x3. Speech is clear. There are no gross focal deficits. SKIN: Intact. DIAGNOSTIC STUDIES/LAB DATA: WBCs are 10.5, hemoglobin is 13.4, hematocrit was 40, platelet count was 136. Sodium 132, potassium 3.7, chloride was 99, carbon dioxide was 25, BUN was 20, creatinine 0.80, glucose was 93, lactic acid was 1.7, calcium 9.2, magnesium was 1.5. C-reactive protein was 6.17. Lipase was 15. Chest x-ray showed no cardiopulmonary disease. CT of the abdomen and pelvis, radiologist's impression: 1. Unremarkable noncontrast appearance of transplanted liver. 2. Solitary dilated small loop of bowel in the anterior periumbilical abdomen measuring up to 4.2 cm in diameter with air-filled levels increasing in diameter compared to 10/09/15 exam of indeterminate significance. Negative for dilation of the more proximal small bowel to indicate obstruction. Negative for associated mural thickening or perienteric inflammation, inflammatory changes. 3. Normal appendix was documented. Mild sigmoid colon diverticulosis without findings of diverticulitis. 4. Bilateral sacroiliitis without gross change. ASSESSMENT AND PLAN: Ms. Prado is a 36-year-old female that presented to the emergency room today with complaints of fever with a history of liver transplant , nausea, and vomiting. We were asked to evaluate her due to her fever for admission and her history of liver transplant. 1. Fever of unclear etiology. We will obtain blood cultures. I will get a CT of her sinuses to rule out sinusitis. Her chest x-ray was clear. Her CT abdomen, pelvis was clear. There was no urolithiasis or pyelonephritis. We will continue to monitor her vital signs. She was given broad-spectrum antibiotics from the emergency room. Pending her CT results, we will place her on antibiotic coverage as needed. I will also order a Monospot. The patient has had recently started Enbrel shots. Her last dose was on Friday. There is some concern that this could cause her to have an increased risk of developing bacterial, viral, or fungal infections. 2. Liver transplant. We will continue her on her Prograf. 3. Insomnia. I will order Benadryl for sleep at night. 4. Rheumatoid arthritis and osteoarthritis. I will order her oxycodone 5 mg at h.s. as needed for pain along with her Flexeril 10 mg. 5. FEN. She will be placed on a clear liquid diet and advance it as tolerated. 6. Code status. She is a full code. 7. DVT prophylaxis. She can ambulate ad neeta. 8. Disposition. She will be admitted observation to the medical floor. TIME SPENT: Time spent on this admission was approximately 60 minutes, greater than half the time was spent [id number] with the patient obtaining her history and physical, the other half of the time was spent going over her plan of care and implementing the plan of care. I discussed with my attending, Dr. Michelle Hernandez, and she is in agreement with my plan. GRECIA MOCK, SIENA [id number]/[facility] #: [id number] RADHA
[2017-06-26] MEDS: Acetaminophen TAB* 325 MG PO PRN (22:49)
[2017-06-26] MEDS: Ondansetron INJ* 2 MG/ML VIAL IV PRN (23:54)
--- NOTE | 2017-06-27 00:55 | PN ---
Progress Note - Progress Note Date of Service: 06/27/17 Note: I was contacted by the patient's nurse that she has had a persistent headache that has not been improved despite numerous medications. I went to evaluate the patient and she is found lying in bed, appearing flushed, slightly diaphoretic, covering her eyes to the light. She states she has significant headache and light sensitivity. Additionally on chin to chest testing the patient c/o mild pain at full flexion. Given her h/o immunosuppressant therapy I believe she needs LP to r/o meningitis as cause of her fever. While awaiting LP will start broad spectrum IV Abx, vancomycin, meropenem and bactrim given her allergies. Continue pain control, nausea control.
[2017-06-27] MEDS ORDERED: Vancomycin(*) 1,000 MG in NS 0.9% 250 ML* 250 ML IVPB ONE (01:00)
[2017-06-27] MEDS ORDERED: Lidocaine 2% EPI 1:200000 MPF* 20 ML VIAL ONE ×2 (01:15→01:16)
[2017-06-27] MEDS ORDERED: NS 0.9% 1000 ML* 1,000 ML IV ONE (01:30)
[2017-06-27] MEDS: D5W IVPB SCH ×7 (02:44→23:39)
[2017-06-27] MEDS: TRIMETH IVPB SCH ×7 (02:44→23:39)
[2017-06-27] MEDS: SULFAMETHOXAZOLE IVPB SCH ×7 (02:44→23:39)
[2017-06-27] MEDS ORDERED: Vancomycin per Pharmacy* NOTE FOLLOW UP PRN (06:38)
[2017-06-27 06:48] LABS: ABS Basophils 0 10^3/ul (0-0.2); ABS Eosinophils 0.1 10^3/ul (0-0.6); ABS Lymphocytes 0.8 10^3/ul (1.0-4.8); ABS Monocytes 0.5 10^3/ul (0-0.8); ABS Neutrophils 3.2 10^3/ul (1.5-7.7); ABS Nucleated RBC 0 10^3/ul; Eosinophil % 1.3 % (0-6); Hematocrit 35 % (35-47); Hemoglobin 11.8 g/dl (12.0-16.0); Mean Corpuscular HGB Conc 34 g/dl (31-36); Mean Corpuscular Hemoglobin 27 pg (27-31); Mean Corpuscular Volume 81 fL (80-97); Mean Platelet Volume 8 um3 (7.4-10.4); Nucleated Red Blood Cells % 0; Platelet Count 119 10^3/ul (150-450); Red Blood Count 4.35 10^6/ul (4.0-5.4); Red Cell Distribution Width 17 % (10.5-15); White Blood Count 4.5 10^3/ul (3.5-10.8)
[2017-06-27] MEDS: Cyclobenzaprine TAB* 10 MG PO PRN (07:36)
[2017-06-27] MEDS ORDERED: Potassium Chlor TAB* 20 MEQ TAB.ER PO ONE (07:56)
[2017-06-27] MEDS: HYDROmorphone INJ* 2 MG/ML CARPUJECT SYRINGE IV SLOW PU PRN ×4 (08:57→22:53)
[2017-06-27] MEDS: Tacrolimus CAP(*) 1 MG PO SCH ×2 (08:58→18:13)
[2017-06-27] MEDS: DOXYcycline CAP(*) 100 MG PO SCH ×2 (08:59→19:27)
[2017-06-27 09:27] LABS: INR 0.97 (0.77-1.02)
[2017-06-27] MEDS: Vancomycin(*) 1,000 MG in NS 0.9% 250 ML* 250 ML IVPB SCH (13:26)
[2017-06-27] MEDS: Ondansetron INJ* 2 MG/ML VIAL IV PRN (13:27)
--- NOTE | 2017-06-27 17:45 | PN ---
Subjective Date of Service: 06/27/17 Interval History: Patient seen and examined at bedside. Denies fever, chills, shortness of breath , chest discomfort, or diarrhea. Pt continues to have a frontal headache that is "in the back of her eyes". She has a history of migraines in the past, but this headache is not like her typical headache. She is able to move her neck without difficulty. She reports headaches after her first Embril injection in the past. She also states that she gets headaches without caffeine and has not had caffeine. She reports postnasal drip and nasal congestion. Family History: Unchanged from Admission Social History: Unchanged from Admission Past Medical History: Unchanged from Admission Objective Active Medications: Acetaminophen (Tylenol Tab*) 650 mg PO Q6H PRN Reason: FEVER/PAIN Cyclobenzaprine HCl (Flexeril Tab*) 10 mg PO BID PRN Reason: SPASMS Doxycycline Hyclate (Vibramycin Cap(*)) 100 mg PO BID [facility] Hydromorphone HCl (Dilaudid Inj*) 1 mg IV SLOW PU Q2H PRN Reason: PAIN - SEVERE Meropenem 2 gm/ Sodium (Chloride) 140 mls @ 280 mls/hr IVPB ONCE ONE Stop: 06/28/17 02:29 Vancomycin HCl 1,000 mg/ (Sodium Chloride) 250 mls @ 166.667 mls/hr IVPB Q12H [facility] Trimethoprim/Sulfamethoxazole (330 mg/ Dextrose) 520.625 mls @ 260.313 mls/hr IVPB 0000,0600,1200,1800 [facility] Ondansetron HCl (Zofran Inj*) 4 mg IV Q4H PRN Reason: NAUSEA/VOMITING Oxycodone HCl (Roxycodone Tab*) 10 mg PO BEDTIME PRN Reason: PAIN Pharmacy Consult (Vancomycin Per Pharmacy*) 1 note FOLLOW UP . PRN Pharmacy Profile Note (Vancomycin Trough Check) 1 note FOLLOW UP 1230 ONE Stop: 06/28/17 12:31 Tacrolimus (Prograf Cap(*)) 1 mg PO QPM [facility] Tacrolimus (Prograf Cap(*)) 2 mg PO QAM [facility] Vital Signs - 8 hr 06/27/17 06/27/17 06/27/17 10:06 11:20 13:27 Temperature 97.9 F Pulse Rate 88 Respiratory 16 16 18 Rate Blood Pressure 107/70 (mmHg) O2 Sat by Pulse 97 Oximetry 06/27/17 06/27/17 15:25 15:46 Temperature 97.7 F Pulse Rate 82 Respiratory 18 16 Rate Blood Pressure 104/70 (mmHg) O2 Sat by Pulse 99 Oximetry Oxygen Devices in Use Now: None Appearance: NAD, laying in bed Ears/Nose/Mouth/Throat: Mucous Membranes Moist, - - No tenderness with palpation of siuses Neck: - - Full ROM without difficulty Respiratory: Symmetrical Chest Expansion and Respiratory Effort, Clear to Auscultation Cardiovascular: NL Sounds; No Murmurs; No JVD, RRR Abdominal: NL Sounds; No Tenderness; No Distention Extremities: No Edema Skin: No Rash or Ulcers Neurological: Alert and Oriented x 3, NL Muscle Strength and Tone Lines/Tubes/Other Access: Clean, Dry and Intact Peripheral IV - site benign Nutrition: Taking PO's Result Diagrams: 06/27/17 05:57 06/27/17 05:57 Additional Lab and Data: Laboratory Tests 06/26/17 06/27/17 06/27/17 10:40 05:57 11:37 Fluid Source Cerebral spinal Fluid Volume 1 Fluid Color Colorless Fluid Appearance Clear Fluid WBC 1 Fluid RBC 1 Fluid Tot Cell Count 15 Fluid Neutrophils 7 Fluid Lymphocytes 80 Fluid Monocytes 13 Fluid Cell Count Rvw By Pending Fluid Comment CSF Cell Count Tube # 4 CSF Glucose CSF Total Protein Monoscreen Negative Influenza A (Rapid) Negative Influenza B (Rapid) Negative 06/27/17 11:37 Fluid Source Fluid Volume Fluid Color Fluid Appearance Fluid WBC Fluid RBC Fluid Tot Cell Count Fluid Neutrophils Fluid Lymphocytes Fluid Monocytes Fluid Cell Count Rvw By Fluid Comment CSF Cell Count Tube # CSF Glucose 65 CSF Total Protein 36 Monoscreen Influenza A (Rapid) Influenza B (Rapid) Microbiology and Other Data: Microbiology 06/27/17 11:37 CSF Gram Stain (Tube 3) - Final Cerebral Spinal Fluid Assess/Plan/Problems-Billing Assessment: Ms. Prado is a 36 yo female with PMH significant for liver transplant secondary to , kidney stones, RA, and osteoarthritis who presented to the emergency room with complaints of - Patient Problems (1) Fever Code(s): R50.9 - FEVER, UNSPECIFIED SNOMED Code(s): 644352879 Comment: - Unclear etiology - No afebrile and no leukocytosis - Chest xray, ABD/pelvis CT, monospot, influenza A/B, UA, and LP negative - Will continue ABX for another 24 hours, then consider narrowing (2) Headache Code(s): R51 - HEADACHE SNOMED Code(s): 03815642 Comment: - Unclear etiology - LP negative - Continue supportive care (3) Electrolyte abnormality Code(s): E87.8 - OTH DISORDERS OF ELECTROLYTE AND FLUID BALANCE, NEC SNOMED Code(s): 386168798 Comment: - Hypokalemia, will receive replacement today and recheck labs in the AM (4) Status post liver transplant Code(s): Z94.4 - LIVER TRANSPLANT STATUS SNOMED Code(s): 028249017 Comment: - Continue prograf (5) Insomnia Code(s): G47.00 - INSOMNIA, UNSPECIFIED SNOMED Code(s): 716976797 Comment: - Continue benadryl at HS (6) Rheumatoid arthritis Code(s): M06.9 - RHEUMATOID ARTHRITIS, UNSPECIFIED SNOMED Code(s): 08496972 Comment: - Continue flexeril and oxycodone (7) DVT prophylaxis Code(s): ZGP9508 - SNOMED Code(s): 861500122 Comment: - Encourage ambulation (8) Full code status Code(s): Z78.9 - OTHER SPECIFIED HEALTH STATUS SNOMED Code(s): 984647658 Status and Disposition: Inpatient. Discharge to home when medically stable, suspect 1-2 days.
[2017-06-27] MEDS: diPHENhydraMINE PO* 25 MG PO PRN (22:07)
[2017-06-28] MEDS: oxyCODONE TAB* 5 MG TAB PO PRN ×2 (00:40→19:57)
[2017-06-28] MEDS: Vancomycin(*) 1,000 MG in NS 0.9% 250 ML* 250 ML IVPB SCH ×2 (01:44→13:26)
[2017-06-28] MEDS ORDERED: Meropenem(*) 2 GM in NS 0.9% 100 ML* 100 ML IVPB ONE (02:00)
[2017-06-28] MEDS: HYDROmorphone INJ* 2 MG/ML CARPUJECT SYRINGE IV SLOW PU PRN (05:12)
[2017-06-28 06:19] LABS: ABS Basophils 0 10^3/ul (0-0.2); ABS Eosinophils 0.1 10^3/ul (0-0.6); ABS Lymphocytes 1.3 10^3/ul (1.0-4.8); ABS Monocytes 0.7 10^3/ul (0-0.8); ABS Neutrophils 2.8 10^3/ul (1.5-7.7); ABS Nucleated RBC 0 10^3/ul; Eosinophil % 2.6 % (0-6); Hematocrit 34 % (35-47); Hemoglobin 11.7 g/dl (12.0-16.0); Lymphocyte % 26.1 % (25-47); Mean Corpuscular HGB Conc 34 g/dl (31-36); Mean Corpuscular Hemoglobin 27 pg (27-31); Mean Corpuscular Volume 80 fL (80-97); Mean Platelet Volume 9 um3 (7.4-10.4); Nucleated Red Blood Cells % 0.1; Platelet Count 118 10^3/ul (150-450); Red Blood Count 4.28 10^6/ul (4.0-5.4); Red Cell Distribution Width 16 % (10.5-15)
[2017-06-28] MEDS: D5W IVPB SCH ×2 (06:28→13:26)
[2017-06-28] MEDS: SULFAMETHOXAZOLE IVPB SCH ×2 (06:28→13:26)
[2017-06-28] MEDS: TRIMETH IVPB SCH ×2 (06:28→13:26)
[2017-06-28 06:35] LABS: EGFR Non-African American 100.2 (>60)
[2017-06-28] MEDS: Tacrolimus CAP(*) 1 MG PO SCH ×2 (08:28→17:39)
[2017-06-28] MEDS: DOXYcycline CAP(*) 100 MG PO SCH ×2 (08:28→20:10)
[2017-06-28] MEDS ORDERED: Vancomycin Trough Check NOTE FOLLOW UP ONE (12:30)
--- NOTE | 2017-06-28 14:33 | PN ---
Subjective Date of Service: 06/28/17 Interval History: improving today. continues to have some nausea with vomiting this morning. Feels a little better this evening. Is not sure if Major is making her nauseous or not. Reports she hasn't taken her Klonopin in several days and also is wondering if this is making her feel nauseous. No fever or chills. No abdominal pain. Reports her RA symptoms are well controlled currently. Continues to have "sinus headache" but reports it is improving Family History: Unchanged from Admission Social History: Unchanged from Admission Past Medical History: Unchanged from Admission Objective Active Medications: Acetaminophen (Tylenol Tab*) 650 mg PO Q6H PRN PRN Reason: FEVER/PAIN Last Admin: 06/26/17 22:49 Dose: 650 mg Cyclobenzaprine HCl (Flexeril Tab*) 10 mg PO BID PRN PRN Reason: SPASMS Last Admin: 06/27/17 07:36 Dose: 10 mg Diphenhydramine HCl (Benadryl Po*) 25 mg PO Q8H PRN PRN Reason: ITCHING Last Admin: 06/27/17 22:07 Dose: 25 mg Doxycycline Hyclate (Vibramycin Cap(*)) 100 mg PO BID [facility] Last Admin: 06/28/17 08:28 Dose: 100 mg Hydromorphone HCl (Dilaudid Inj*) 1 mg IV SLOW PU Q2H PRN PRN Reason: PAIN - SEVERE Last Admin: 06/28/17 05:12 Dose: 1 mg Ondansetron HCl (Zofran Inj*) 4 mg IV Q4H PRN PRN Reason: NAUSEA/VOMITING Last Admin: 06/27/17 13:27 Dose: 4 mg Oxycodone HCl (Roxycodone Tab*) 10 mg PO BEDTIME PRN PRN Reason: PAIN Last Admin: 06/28/17 00:40 Dose: 10 mg Tacrolimus (Prograf Cap(*)) 1 mg PO QPM [facility] Last Admin: 06/27/17 18:13 Dose: 1 mg Tacrolimus (Prograf Cap(*)) 2 mg PO QAM [facility] Last Admin: 06/28/17 08:28 Dose: 2 mg Vital Signs - 8 hr 06/28/17 06/28/17 08:00 08:15 Temperature 97.8 F Pulse Rate 90 Respiratory 18 18 Rate Blood Pressure 113/80 (mmHg) O2 Sat by Pulse 100 Oximetry Oxygen Devices in Use Now: None Appearance: well developed 36 yo female A+O x3 in NAD Eyes: No Scleral Icterus, PERRLA Ears/Nose/Mouth/Throat: NL Teeth, Lips, Gums, Mucous Membranes Moist Neck: NL Appearance and Movements; NL JVP Respiratory: Symmetrical Chest Expansion and Respiratory Effort, Clear to Auscultation Cardiovascular: NL Sounds; No Murmurs; No JVD, RRR, No Edema Abdominal: NL Sounds; No Tenderness; No Distention Lymphatic: No Cervical Adenopathy Extremities: No Edema, No Clubbing, Cyanosis Skin: No Rash or Ulcers, No Nodules or Sclerosis Neurological: Alert and Oriented x 3, NL Sensation, NL Gait, NL Muscle Strength and Tone Lines/Tubes/Other Access: Clean, Dry and Intact Peripheral IV Nutrition: Taking PO's Result Diagrams: 06/28/17 05:15 06/28/17 05:15 Additional Lab and Data: Laboratory Tests 06/26/17 06/27/17 06/27/17 10:40 05:57 11:37 Fluid Source Cerebral spinal Fluid Volume 1 Fluid Color Colorless Fluid Appearance Clear Fluid WBC 1 Fluid RBC 1 Fluid Tot Cell Count 15 Fluid Neutrophils 7 Fluid Lymphocytes 80 Fluid Monocytes 13 Fluid Cell Count Rvw By Pending Fluid Comment CSF Cell Count Tube # 4 CSF Glucose CSF Total Protein Monoscreen Negative Influenza A (Rapid) Negative Influenza B (Rapid) Negative 06/27/17 11:37 Fluid Source Fluid Volume Fluid Color Fluid Appearance Fluid WBC Fluid RBC Fluid Tot Cell Count Fluid Neutrophils Fluid Lymphocytes Fluid Monocytes Fluid Cell Count Rvw By Fluid Comment CSF Cell Count Tube # CSF Glucose 65 CSF Total Protein 36 Monoscreen Influenza A (Rapid) Influenza B (Rapid) Microbiology and Other Data: Microbiology 06/27/17 11:37 CSF Gram Stain (Tube 3) - Final Cerebral Spinal Fluid Assess/Plan/Problems-Billing Assessment: Ms. Prado is a 36 yo female with PMH significant for liver transplant secondary to , kidney stones, RA, and osteoarthritis who presented to the emergency room with complaints of fever, chills, nausea and vomiting - Patient Problems (1) Fever Comment: - Unclear etiology - No afebrile and no leukocytosis - Chest xray, ABD/pelvis CT, monospot, influenza A/B, UA, and LP negative - Narrow abx - DC Vanco, IV Bactrim - continue Doxy for sinus infection - it is possible this is upsetting her stomach; plan to yazmin ethis evening and if she gets sick consider switching to a different abx. (2) Status post liver transplant Comment: - LFTs normal - Continue prograf (3) Headache Comment: - Unclear etiology - LP negative - Continue supportive care (4) Anxiety Comment: - restart Klonopin (5) Electrolyte abnormality Comment: - resolved with replacement (6) Rheumatoid arthritis Comment: - Continue flexeril and oxycodone - Pt on Enbrel (7) DVT prophylaxis Comment: - Encourage ambulation (8) Full code status Status and Disposition: Inpatient. Discharge to home when medically stable, possibly tomorrow
[2017-06-28] MEDS: Cyclobenzaprine TAB* 10 MG PO PRN (19:58)
[2017-06-28] MEDS ORDERED: clonazePAM TAB(*) 0.5 MG PO SCH (21:00)
[2017-06-28] MEDS: Ondansetron INJ* 2 MG/ML VIAL IV PRN (21:03)
[2017-06-29] MEDS: Acetaminophen TAB* 325 MG PO PRN (04:20)
[2017-06-29 05:25] LABS: ABS Basophils 0 10^3/ul (0-0.2); ABS Eosinophils 0.2 10^3/ul (0-0.6); ABS Lymphocytes 1.3 10^3/ul (1.0-4.8); ABS Monocytes 0.7 10^3/ul (0-0.8); ABS Neutrophils 4.8 10^3/ul (1.5-7.7); ABS Nucleated RBC 0 10^3/ul; Eosinophil % 2.4 % (0-6); Hematocrit 38 % (35-47); Hemoglobin 12.8 g/dl (12.0-16.0); Mean Corpuscular HGB Conc 34 g/dl (31-36); Mean Corpuscular Hemoglobin 27 pg (27-31); Mean Corpuscular Volume 81 fL (80-97); Mean Platelet Volume 8 um3 (7.4-10.4); Nucleated Red Blood Cells % 0.1; Platelet Count 148 10^3/ul (150-450); Red Blood Count 4.68 10^6/ul (4.0-5.4); Red Cell Distribution Width 17 % (10.5-15)
[2017-06-29 05:51] LABS: EGFR Non-African American 86.5 (>60)
[2017-06-29 07:54] VITALS: BP 93/59
[2017-06-29] MEDS: Tacrolimus CAP(*) 1 MG PO SCH (09:04)
[2017-06-29] MEDS: Ondansetron INJ* 2 MG/ML VIAL IV PRN (09:14)
[2017-06-29] MEDS: diPHENhydraMINE PO* 25 MG PO PRN (10:31)
[2017-06-29] MEDS: DOXYcycline CAP(*) 100 MG PO SCH (10:45)
[2017-06-29] MEDS ORDERED: Azithromycin TAB* 250 MG PO ONE (15:00)
--- NOTE | 2017-06-29 15:38 | PN ---
Subjective Date of Service: 06/29/17 Interval History: Patient states that she is feeling better. Denies nausea or vomiting. denies abd pain. Denies chest pain or shortness of breath. Patient states that she felt nauseated after taking her doxycycline and refuse dose this AM. Also reports that she has a cold sore breakout on her lips and nose. states that she has had them in the past put not for a long time. Family History: Unchanged from Admission Social History: Unchanged from Admission Past Medical History: Unchanged from Admission Objective Active Medications: Acetaminophen (Tylenol Tab*) 650 mg PO Q6H PRN PRN Reason: FEVER/PAIN Last Admin: 06/29/17 04:20 Dose: 650 mg Clonazepam (Klonopin Tab(*)) 0.25 mg PO BEDTIME [facility] Last Admin: 06/28/17 20:10 Dose: 0.25 mg Cyclobenzaprine HCl (Flexeril Tab*) 10 mg PO BID PRN PRN Reason: SPASMS Last Admin: 06/28/17 19:58 Dose: 10 mg Diphenhydramine HCl (Benadryl Po*) 25 mg PO Q8H PRN PRN Reason: ITCHING Last Admin: 06/29/17 10:31 Dose: 25 mg Doxycycline Hyclate (Vibramycin Cap(*)) 100 mg PO BID [facility] Last Admin: 06/29/17 10:45 Dose: Not Given Ondansetron HCl (Zofran Inj*) 4 mg IV Q4H PRN PRN Reason: NAUSEA/VOMITING Last Admin: 06/29/17 09:14 Dose: 4 mg Oxycodone HCl (Roxycodone Tab*) 10 mg PO BEDTIME PRN PRN Reason: PAIN Last Admin: 06/28/17 19:57 Dose: 10 mg Tacrolimus (Prograf Cap(*)) 1 mg PO QPM [facility] Last Admin: 06/28/17 17:39 Dose: 1 mg Tacrolimus (Prograf Cap(*)) 2 mg PO QAM [facility] Last Admin: 06/29/17 09:04 Dose: 2 mg Vital Signs - 8 hr 06/29/17 06/29/17 06/29/17 07:47 08:00 10:31 Temperature 98.1 F Pulse Rate 97 Respiratory 18 18 18 Rate Blood Pressure 93/59 (mmHg) O2 Sat by Pulse 98 Oximetry 06/29/17 13:14 Temperature Pulse Rate Respiratory 16 Rate Blood Pressure (mmHg) O2 Sat by Pulse Oximetry Oxygen Devices in Use Now: None Appearance: appears comfortable, sitting in bed Eyes: No Scleral Icterus Ears/Nose/Mouth/Throat: Clear Oropharnyx, Mucous Membranes Moist Neck: NL Appearance and Movements; NL JVP, Trachea Midline Respiratory: Symmetrical Chest Expansion and Respiratory Effort, Clear to Auscultation Cardiovascular: NL Sounds; No Murmurs; No JVD Abdominal: NL Sounds; No Tenderness; No Distention Extremities: No Edema, No Clubbing, Cyanosis Skin: - - small area of redness noted to lip and nose Neurological: Alert and Oriented x 3, NL Gait, NL Muscle Strength and Tone Nutrition: Taking PO's Result Diagrams: 06/29/17 05:13 06/29/17 05:13 Additional Lab and Data: Laboratory Tests 06/26/17 06/27/17 06/27/17 10:40 05:57 11:37 Fluid Source Cerebral spinal Fluid Volume 1 Fluid Color Colorless Fluid Appearance Clear Fluid WBC 1 Fluid RBC 1 Fluid Tot Cell Count 15 Fluid Neutrophils 7 Fluid Lymphocytes 80 Fluid Monocytes 13 Fluid Cell Count Rvw By Pending Fluid Comment CSF Cell Count Tube # 4 CSF Glucose CSF Total Protein Monoscreen Negative Influenza A (Rapid) Negative Influenza B (Rapid) Negative 06/27/17 11:37 Fluid Source Fluid Volume Fluid Color Fluid Appearance Fluid WBC Fluid RBC Fluid Tot Cell Count Fluid Neutrophils Fluid Lymphocytes Fluid Monocytes Fluid Cell Count Rvw By Fluid Comment CSF Cell Count Tube # CSF Glucose 65 CSF Total Protein 36 Monoscreen Influenza A (Rapid) Influenza B (Rapid) Microbiology and Other Data: Microbiology 06/27/17 11:37 CSF Gram Stain (Tube 3) - Final Cerebral Spinal Fluid Assess/Plan/Problems-Billing Assessment: Ms. Prado is a 36 yo female with PMH significant for liver transplant secondary to , kidney stones, RA, and osteoarthritis who presented to the emergency room with complaints of fever, chills, nausea and vomiting - Patient Problems (1) Fever Current Visit: Yes Status: Acute Code(s): R50.9 - FEVER, UNSPECIFIED SNOMED Code(s): 760126649 Comment: - Unclear etiology - No afebrile and no leukocytosis - Chest xray, ABD/pelvis CT, monospot, influenza A/B, UA, and LP negative, LP negative, LP Negative for HSV 1 and herpes 2 as well - Doxycycline causing vomiting- dose refused this AM antibiotic changed to zithromax 500 mg ~ suspect this could be viral as she seems to have a breakout on her lip and nose of cold sores ~ suspect this could also be related to sinusitis (2) Status post liver transplant Current Visit: No Status: Chronic Code(s): Z94.4 - LIVER TRANSPLANT STATUS SNOMED Code(s): 766884596 Comment: - LFTs normal - Continue prograf (3) Headache Current Visit: Yes Status: Acute Code(s): R51 - HEADACHE SNOMED Code(s): 79592929 Comment: - Unclear etiology - LP negative - Continue supportive care (4) Anxiety Current Visit: Yes Status: Chronic Code(s): F41.9 - ANXIETY DISORDER, UNSPECIFIED SNOMED Code(s): 86392885 Comment: - restart Klonopin (5) Insomnia Current Visit: No Status: Chronic Code(s): G47.00 - INSOMNIA, UNSPECIFIED SNOMED Code(s): 238888818 Comment: - Continue benadryl at HS (6) Rheumatoid arthritis Current Visit: No Status: Chronic Code(s): M06.9 - RHEUMATOID ARTHRITIS, UNSPECIFIED SNOMED Code(s): 04590960 Comment: - Continue flexeril and oxycodone - Pt on Enbrel (7) DVT prophylaxis Current Visit: Yes Status: Acute Code(s): ICW2293 - SNOMED Code(s): 891337197 Comment: - Encourage ambulation (8) Full code status Current Visit: Yes Status: Acute Code(s): Z78.9 - OTHER SPECIFIED HEALTH STATUS SNOMED Code(s): 306885401 Status and Disposition: discharge
--- NOTE | 2017-07-01 09:02 | DS ---
Cc: Dr. Bernard DISCHARGE SUMMARY: DATE OF ADMISSION: 06/26/17 DATE OF DISCHARGE: 06/29/17 PROVIDER: Grecia Mock NP. ATTENDING PHYSICIAN WHILE IN THE HOSPITAL: Michelle Hernandez DO (dictated by Grecia Mock NP). PRIMARY CARE PROVIDER: Neil Bernard MD. PRIMARY DIAGNOSES: 1. Fever. 2. Sinusitis. SECONDARY DIAGNOSES: 1. 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 2. History of kidney stones. 3. History of pyelonephritis. 4. History of rheumatic arthritis. 5. History of osteoarthritis. STUDIES COMPLETED WHILE IN THE HOSPITAL: 1. She had a chest x-ray on 06/26/17: No active cardiopulm onary disease. 2. She had a CT of the abdomen and pelvis. Radiologist impression: a. Unremarkable noncontrast ross earance of the transplanted liver. b. Solitary dilation of small bowel loops in the anterior periumb ilical abdomen measuring up to 4.2 cm with an air/fluid level increasing in diameter compared to the September 2015 exam. This is indeterminant significance. Negative for dilation of the more proximal smal l bowel to indicate obstruction. Negative for associated mural thickening or perienteric inflammator y changes. c. Normal appendix is documented. Mild sigmoid colon diverticulosis without findings of diverticulitis. d. Bilateral sacroiliitis without gross change. 3. She had a CT of the sinuses. Radiologist impression: Paranasal sinus disease, most severely aff ecting the bilateral maxillary sinuses. DISCHARGE MEDICATIONS: Azithromycin 500 mg p.o. daily x2 days. CONTINUED HOME MEDICATIONS: 1. Klonopin 0.5 to 1 mg p.o. at bedtime. 2. Flexeril 10 mg p.o. b.i.d. 3. Benadryl 50 mg p.o. q. 8 hours p.r.n. 4. Ibuprofen 400 mg b.i.d. with meals as needed. 5. Oxycodone 10 mg p.o. at bedtime. 6. Prednisone 10 mg p.o. daily. 7. Zantac 150 mg p.o. b.i.d. 8. Prograf 2 mg p.o. q.a.m. 9. Prograf 1 mg p.o. q.p.m. HISTORY OF PRESENT ILLNESS AND HOSPITAL COURSE: Ms. Prado is a 36-year-old female who carries a his tory of liver transplant due to congenital defect of the biliary atresia, history of kidney stones, h istory of pyelonephritis, history of RA, and history of osteoarthritis who presented to the emergency room with complaints of fevers, chills, nausea and vomiting. The patient states that she woke up at 4 am feeling sick to her stomach. She attempted to take some old medication for nausea, but states that did not relieve her symptoms. She tossed and turned, and then was severely nauseated at 7 am an d started vomiting. States that initially she was vomiting large amounts of undigested food and then just bile. She also complains of generalized body aches and some right flank pain. She denied any chest pain, shortness of breath, cough, or congestion. She denied any hemoptysis. She denies any di arrhea, denies dysuria, hematuria. She does complain of right-sided pain that radiated to her right lower abdomen. She also states that she was recently started on Enbrel treatment for RA. Her first shot was 3 weeks ago and then she states that she took a shot of Enbrel on Friday. She does report nasal congestion and rhinorrhea x3 weeks, and complains of pressure to her maxillary and frontal sin uses. Due to her history of having liver transplant, we were asked to admit for her fever of unclear etiology. While in the emergency room, she had routine lab work. Her white count was within normal limits. Sh e was mildly hyponatremic with a sodium of 132, potassium 3.7, magnesium 1.5, C-reactive protein 6.17 . Her urine pH was 8.0, specific gravity was 1.011, urine protein ketones were negative. Urine bloo d was +2, urine nitrates, bilirubin, urobilinogen, urine leukocyte esterase were all negative. Urine WBC's were trace. Urine RBC's were 2+. Urine squamous epithelial cells were present. Urine bacteri a was negative. She had a flu A and B which were also negative. While in the hospital, she had an LP due to continued headache. Her spinal tap was within normal limits. The HSB1 and herpes 2 DNA were both negative. Glucose was 65, CSF protein was 36. The patient does report that she does have an a kelli on the corner of her lip and the base of her naris that is irritated and feels like she is having a cold sore breakout. Her CT of the sinuses did show acute sinusitis. Given her history of liver tr ansplant and her fever, she was placed on antibiotics. She was initially placed on doxycycline to yoli at her sinusitis at 100 mg p.o. b.i.d. She was unable to tolerate this medication due to nausea caus ing her to become nauseous. Her antibiotic was changed to azithromycin 500 mg p.o.; she will take th is x3 days. I suspect that her fever is related to possible viral infection along with acute sinusit is. The patient today, on 06/29/17, states that she is feeling better. She denies any nausea or vom iting. She has been afebrile for over 48 hours. Ms. Prado is stable for discharge back home. Vital signs are as follows: Temperature 98.1, pulse 97, respirations 18, O2 saturation 98%, blood pr essure 93/59. DISCHARGE PLAN: Ms. Prado will be discharged back home. Activity as tolerated. She can resume a re gular diet. In regards to her fever, she will be treated for sinusitis. She will continue on azithr omycin 500 mg x2 days to complete her treatment. She was instructed to return to the emergency room for any increased fevers, shortness of breath or chest pain, difficulty urinating. FOLLOWUP: She should followup with her primary care provider in 4 to 7 days. She should followup wit h her transplant doctor in [place] in 1 to 3 days, and she should followup with the medical reviewer in 4 to 7 days. This is a summary of her hospitalization; for further details, please see the entire medical record. TIME SPENT: Time spent on this discharge was approximately 60 minutes; greater than half that time w as spent with the patient discussing discharge plans and instructions. CONDITION ON DISCHARGE: Stable. GRECIA MEG, SIENA [id number]/[facility] #: [id number]
== END 2017-06-29 16:22 | disposition home or self-care (01) | DRG 113 ==
LOC: ED 09:38 → MED 15:27 → OBSVTOIN 06-27 09:30
PROVIDERS: ADMIT Internal Medicine; ATTEND Internal Medicine
PROC: 009U3ZX Drainage of Spinal Canal, Percutaneous Approach, Diagnostic (ICD-10-PCS; principal; 2017-06-27)
DX: J01.00 Acute maxillary sinusitis, unspecified (principal); E87.8 Other disorders of electrolyte and fluid balance, not elsewhere classified; Z94.4 Liver transplant status; E87.1 Hypo-osmolality and hyponatremia; B34.9 Viral infection, unspecified; M06.9 Rheumatoid arthritis, unspecified; M19.90 Unspecified osteoarthritis, unspecified site; G47.00 Insomnia, unspecified; F41.9 Anxiety disorder, unspecified; R51 Headache; Z79.1 Long term (current) use of non-steroidal anti-inflammatories (NSAID); Z79.891 Long term (current) use of opiate analgesic; Z79.52 Long term (current) use of systemic steroids; Z79.899 Other long term (current) drug therapy; Z88.6 Allergy status to analgesic agent; Z88.5 Allergy status to narcotic agent; Z88.0 Allergy status to penicillin; Z88.8 Allergy status to other drugs, medicaments and biological substances
CPT/HCPCS: 36415; 70486; 71046; 74176; 80048; 80053; 80202; 81003; 81015; 82945; 83605; 83690; 83735; 84157; 84702; 85025; 85610; 85730; 86140; 86308; 87040; 87070; 87086; 87103; 87205; 87502; 87529; 87641; 87899; 89051; 99285; A9270-GY; G0378; J0692; J1170; J1200; J1885; J2270; J2405; J3370; J3475; J3490; J7507

== ENCOUNTER 2017-08-31 12:45 | Observation (INO) | payer OTHER ==
[2017-08-31] MEDS ORDERED: NS 0.9% 1000 ML*IV.FLUID IV ONE (14:00)
[2017-08-31] MEDS ORDERED: Clindamycin 600 MG IVPREMIX(* 600 MG/50 ML SDV IV ONE (14:00)
[2017-08-31 14:21] LABS: ABS Basophils 0.1 10^3/ul (0-0.2); ABS Eosinophils 0.1 10^3/ul (0-0.6); ABS Monocytes 0.7 10^3/ul (0-0.8); ABS Neutrophils 5.7 10^3/ul (1.5-7.7); ABS Nucleated RBC 0 10^3/ul; Eosinophil % 0.8 % (0-6); Hematocrit 36 % (35-47); Hemoglobin 12.7 g/dl (12.0-16.0); Lymphocyte % 23.4 % (25-47); Mean Corpuscular HGB Conc 35 g/dl (31-36); Mean Corpuscular Hemoglobin 29 pg (27-31); Mean Corpuscular Volume 83 fL (80-97); Mean Platelet Volume 8.5 um3 (7.4-10.4); Nucleated Red Blood Cells % 0; Platelet Count 177 10^3/ul (150-450); Red Cell Distribution Width 15 % (10.5-15); White Blood Count 8.5 10^3/ul (3.5-10.8)
[2017-08-31 14:28] LABS: INR 0.89 (0.77-1.02)
--- NOTE | 2017-08-31 14:42 | RAD ---
Indication: Headaches, immunocompromise. CT of the brain was performed without IV contrast. No prior study is available for comparison. Ventricular structures are midline. No midline shift is noted. The extra-axial spaces are unremarkable. There is no evidence of intracranial mass or hemorrhage. No other high or low density lesions are identified. Mastoid air cells and paranasal sinuses are otherwise unremarkable. IMPRESSION: No intracranial mass or hemorrhage is present.
[2017-08-31 14:43] LABS: EGFR Non-African American 93.2 (>60)
[2017-08-31 14:46] LABS: Urine Appearance Clear; Urine Blood Negative (Negative); Urine Color Straw; Urine Ketones Negative (Negative); Urine Protein Negative (Negative); Urine Specific Gravity 1.005 (1.010-1.030); Urine Urobilinogen Negative (Negative)
--- NOTE | 2017-08-31 14:48 | RAD ---
Indication: Immunosuppression, liver transplant. Single frontal view of the chest performed at 1415 hours was reviewed. Comparison is made with previous exam dated June 26, 2017. No mediastinal shift is noted. Heart is of normal size and configuration. Lung schilling appear clear. IMPRESSION: NO ACTIVE CARDIOPULMONARY DISEASE IS NOTED.
--- OUTSIDE RECORDS SUMMARY | 2017-08-31 15:55 | XMS REPORT ---
:1980 External Reference #:[id number] Author Organization [facility] numberFire Address [address] [address] Phone [phone] Care Team Providers Name Role Phone Neil Bernard MD Care Team Information Manager Field Service Unavailable Neil Bernard MD Primary Care Physician Unavailable Payers Type Date Identification Numbers Payment Provider Subscriber Commercial Effective: Policy Number: [id number] [place] Leatha Prado 2007 Medicaid PayID: [id number] [address] [address] [place] [address] Problems Date Description Provider Status Onset: 03/19/2007 [...] Onset: 08/17/2007 Chronic disease of tonsils AND/OR Mirella Catalan adenoids Beau,FACP Onset: 08/17/2007 Low back pain Meño Markham, Active Beau,FACP Family History Date Family Member(s) Problem(s) Comments General Diabetes General Heart Disease General Hypertension General Cancer Maternal Grandmother due to Heart Disease () Social History Type Date Description Comments Marital Status Lives With Occupation [employer] V[employer] Worker Cigarette Use Never Smoked Cigarettes ETOH Use [...] Form Strength Qnty SIG Indications Ordering Provider Azithromycin 08/06/ Active Tablets 250mg 6tabs 2 tabs by J01.90 2017 mouth on Anthony, day 1; 1 M.D. tab by mouth every day on days 2-5 Nystatin 06/18/ Active Suspension [id number] 500un swish and B37.0 Sean 2017 t/ML its swallow Anthony, 4-6mls by M.D. mouth four times a day. (half dose in each side of mouth), watch for hives Cyclobenzaprine 06/03/ Active Tablets 10mg 60tab 1 tablet Sean HCL 2018 s by mouth Anthony, twice M.D. daily as needed muscle spasms Enbrel Sureclick 05/19/ Active Solution 50mg/ml 3.92u Inject Z79.899 2017 Auto-Inject nits 1ML Under Anthony, The Skin M.D. Every Week Tacrolimus 00/ Active 1mg 2 in am, Unknown 0000 1 in pm Oxycodone HCL / Active Tablets 5mg 90tab take one Sean 0000 s by mouth Anthony, every M.D. eight hours as needed for pain Clonazepam / Active Tablets 2mg 1 by Unknown 0000 mouth three times a day Benadryl Allergy / Active Tablets 25mg 1-2 tabs Unknown 0000 twice a day for itching Ibuprofen / Active Tablets 200mg 1 by Unknown 0000 mouth three times a day with food as needed Lidocaine / Active Patches 5% apply Unknown 0000 patch up to 12 hours once a day. Ranitidine HCL / Active Capsules 150mg take one Unknown 0000 capsule by mouth twice a day prn Magnesium-Oxide 05/28/ Hx Tablets 400(241.3 30tab take one Sean 2017 - mg) mg s capsule/t Anthony, 05/30/ ablet M.D. 2018 daily by mouth Plaquenil 04/25/ Hx Tablets 200mg 60tab 1 by M05.79 Sean 2017 - s mouth Anthony, 05/30/ every day M.D. 2017 for 1 week then 2 by mouth daily ongoing Dilaudid 10/18/ Hx Tablets 4mg 120ta 1 tab qid Meño 2007 - bs prn DLinda Markham, M.D.,FACP 2017 Topamax 10/18/ Hx Tablets 50mg 60tab 1 po bid Meño 2007 - s Mitch Markham, M.D.,FACP 2017 Lomotil 10/05/ Hx Tablets 2.5mg 40tab 1 tab qid Meño 2007 - s prn DLinda Markham, M.D.,FACP 2007 Remeron 08/16/ Hx Tablets 30mg 30tab 1 Tabs 296.33 Meño 2007 - s PO Q hs DLinda Markham, M.D.,FACP 2017 Cipro 07/08/ Hx Tablets 500mg 14tab 1 PO bid Meño 2007 - s x 7days DLinda Markham, M.D.,FACP 2007 Frova 07/06/ Hx Tablets 2.5mg 12tab q2h prn 346.00 Meño 2007 Jan s mdd2 DLinda Markham, M.D.,FACP 2017 Prednisolone 06/01/ Hx Tablets 5mg 60tab 1 tab qod Meño 2007 - s Mitch Markham, M.D.,FACP 2008 Mycelex 06/01/ Hx Rolly 10mg 50uni 5x/day 112.0 Meño 2008 - ts for 10 D. Shahrzad, 08/16/ days M.D.,FACP 2008 Remeron 06/01/ Hx Tablets 30mg 30tab 1/2 tab 296.33 Meño 2008 - s po q hs Mitch Markham, M.D.,FACP 2008 Avelox 06/01/ Hx Tablets 400mg 6tabs 1 qd for Meño 2007 - 6 days Mitch Markham, M.D.,FACP 2008 Hydrocodone/Homat 05/29/ Hx Syrup 5-1.5/5 240ml 5 cc quid Meño cardona 2008 - prn cough Mitch Markham, .D.,FACP 2008 Zithromax Z-Tip 05/28/ Hx Tablets 250mg 1Pak take as 466.0 Meño 2008 - directed Mitch Markham, M.D.,FACP 2007 Hydrocodone/Guaif 05/28/ Hx Syrup 5-100/5 150cc 5 cc q 8 466.0 Iram Coyne enabisai 2008 - hours prn Mitch Markham, cough M.D.,FACP 2007 Prograf 03/19/ Hx Capsules 1mg 3 PO bid Meño Markham, .D.,FACP 2017 Cellcept 03/19/ Hx Tablets 500mg 1 bid Meño Markham, .D.,FACP 2017 Omeprazole 03/19/ Hx Capsules DR 20mg 30cap qd PO Meño Mcmahon - emilia Markham, .D.,FACP 2008 Topamax 03/19/ Hx Tablets 25mg 120ta 2 Tabs Meño Mcmahon - bs bid Mitch Markham, .D.,FACP 2008 Frova 03/19/ Hx Tablets 2.5mg 18tab Q2H prn Meño Montoya s MDD2 Mitch Markham, M.D.,FACP 2008 Fluoxetine HCL 03/19/ Hx Capsules 20mg 30cap PO qd Meño Markham, LindaD.,FACP 2007 Promethazine HCL 03/19/ Hx Tablets 25mg 1 qhs prn Meño 2006 Jan Markham, M.D.,FACP 2007 Prilosec 03/19/ Hx Capsules DR 20mg 30cap 1 po qd 535.40 Meño Markham, M.D.,FACP 2016 Reglan 03/19/ Hx Tablets 5mg 30tab qac prn 535.40 Meño 2006 Jan Markham, .D.,FACP 2007 Vistaril 03/19/ Hx Capsules 25mg 346.00 Meño Markham, .D.,FACP 2016 Dilaudid / Hx Tablets 2mg 120ta 1-2 tid Meño 0000 - bs po prn Mitch Markham, .D.,FACP 2007 Prednisone / Hx Tablets 10mg 90tab Take one Sean 0000 - s half Anthony, 08/06/ capsule/t MLionel 2018 ablet daily by mouth Medications Administered in Office Medication Date Status Form Strength Qnty SIG Indications Ordering Provider Triamcinolone 05/30/ Administered Injection Sean BarriosKenalog) Minda Cruz M.D. Triamcinolone 05/21/ Administered Injection Sean BarriosKenalog) Minda Cruz M.D. No Injection 08/27/ Administered Injection Gordo Schmidt MD Vital Signs Date Vital Result Comment 08/06/2017 Height 65.5 inches 5'5.50" Weight 149.00 lb Heart Rate 130 /min BP Systolic Sitting 126 mmHg BP Diastolic Sitting 78 mmHg Respiratory Rate 14 /min Pain Level 1 BMI (Body Mass Index) 24.4 kg/m2 06/18/2017 Height 65.5 inches 5'5.50" Weight 146.00 [...] Color Yellow Urine Appearance Clear Urine Specific [place] 1.010 1.010-1.030 Urine pH 5.0 5-9 Urine [...] Absent Urine Squamous Epithelial Cell Present Absent Laboratory test finding 05/21/2017 C Reactive Protein 21.13 mg/L High &lt ; 5.00 2 Erythrocyte Sed Rate 49 mm/Hr High 0-14 Quantiferon Gold TB 05/21/2017 M tuberculosis by Quantiferon Negative Negative 3 TB Ag minus Nil Result -0.01 IU/mL TB Mitogen minus Nil Result 8.32 IU/mL TB Nil Result 0.11 IU/mL 4 Laboratory test finding 05/21/2017 Creatine Kinase(CK) 30 U/L 10-223 Magnesium 1.7 mg/dL Low 1.9-2.7 Tacrolimus 2.4 ng/mL 5 CBC Auto Diff 05/21/2017 White Blood Count [...] Egfr Non- 93.6 >60 Egfr 120.4 >60 6 Celiac Hla 05/21/2017 Hla-Dqa1 SEE BELOW 7 Hla-DQB1 SEE BELOW 8 Celiac Gene Pairs Present? No Celiac Gene Interpretation See Comment 9 Celiac Panel 05/21/2017 Tissue Transglutaminase IgA Ab <1.2 U/mL 10 Immunoglobulin A 378 mg/dL 61 - 356 Celiac Interpretation See Comment 11 HIV 1/2 AB Evaluation 05/21/2017 HIV 1 2 Antibody Nonreactive Nonreactive 12 Laboratory test finding 04/25/2017 Rheumatoid Factor [...] Urine Screen NONE DETECTED None Detect 29 Basic Metabolic Panel Stat 01/13/2008 Sodium 136 mmol/L 135-145 Potassium 3.4 mmol/L Low 3.5-5.0 Chloride 111 mmol/L 101-111 Co2 (Carbon Dioxide) 21.0 mmol/L Low 22-32 Anion Gap 4.0 mmol/L 2-11 30 Glucose 128 mg/dL High 70-100 31 BUN 13 mg/dL 6-24 Creatinine 1.1 mg/dL 0.5-1.4 One Over Creatinine 0.90 BUN/Creatinine Ratio 11.8 8-20 Calcium 8.4 mg/dL 8.1-9.9 32 Acetaminophen Stat 01/13/2008 Acetaminophen < 10 Low 10-30 33 g/mL Alcohol Stat 01/13/2008 Alcohol < 10.0 None Detected 34 mg/dL Salicylate Stat 01/13/2008 Salicylate < 4.0 Less Than 30 35 mg/dL Urine Culture & 01/04/2008 Urine Culture NF1 36 Sensitivi Sensitivi Laboratory test 01/04/2008 Lipase 33 U/L 22-51 finding Amylase Stat 01/04/2008 Amylase 79 U/L 30-125 P33S 01/04/2008 Sodium 139 mmol/L 135-145 Potassium [...] Ua Color YELLOW Stat Appearance-Urine HAZY Specific [place]-Ur 1.015 1.010-1.030 Esterase-Urine TRACE Negative Nitrite NEGATIVE Negative Kcuflwbkurws-Ft-IHR NEGATIVE Negative Protein-Urine NEGATIVE Negative PH-Urine 5.0 [...] Strep A 07/14/2007 Rapid Strep A The data center technician 45 <SEE NOTE> Laboratory test 07/14/2007 Throat-Beta Strep NGNBS 46 finding Culture Laboratory test 07/07/2007 Throat Culture Full FEW [STAPHYLOCOC 47 finding <SEE NOTE> HCG Qualitative Stat 06/11/2007 Serum Qual HCG NEGATIVE Negative 48 P33S 06/11/2007 One Over Creatinine 1.25 Anion Gap 6.0 mmol/L 2-11 49 Albumin/Globulin Ratio 1.2 1-3 Albumin 3.6 GM/DL [...] Ratio 20.0 8-20 Creatinine 0.8 mg/dL 0.5-1.4 CBC With Electronic Diff Stat 06/11/2007 White Blood Count 7.2 CUMM 4.8- 10.8 Abs Basophils 0.1 0-0.2 [...] 4.2-5.4 Redcell Distribution WDTH 14 % 10.5-15 Laboratory test finding 06/02/2007 Urine Culture SCANT NORMAL URE 50 Sensitivi <SEE NOTE> Urinalysis W/Microscopic 06/01/2007 Ua Color YELLOW Stat Amorphous Sed-U TRACE Appearance-Urine CLEAR Bacteria-Urine TRACE Bilirubin-Ur NEGATIVE Negative Blood-Urine TRACE Negative Epith Cells-Ur FEW Esterase-Urine TRACE Negative Glucose-Urine NEGATIVE Negative Ketones-Urine NEGATIVE Negative Mucus Urine MODERATE Nitrite NEGATIVE Negative PH-Urine 5.0 5-9 Protein-Urine NEGATIVE Negative RBC-Urine 0-2 0-2 Nantkrgzrcuj-Vt-PUH NEGATIVE Negative Specific [place]-Ur 1.016 1.010-1.030 WBC-Urine 3-5 0-5 Laboratory test [...] 8-20 58 Creatinine 0.9 mg/dL 0.5-1.4 58 Basic Metabolic Panel Stat 02/26/2007 One Over Creatinine 1.11 Anion Gap 5.0 mmol/L 2-11 60 BUN 16 mg/dL 6-24 Calcium 8.8 mg/dL 8.7-10.2 Chloride 108 mmol/L 101-111 Co2 (Carbon Dioxide) 23.0 mmol/L 22-32 Glucose 105 mg/dL 70-105 Potassium 4.1 mmol/L 3.5-5.0 Sodium 136 mmol/L 135-145 BUN/Creatinine Ratio 17.8 8-20 Creatinine 0.9 mg/dL 0.5-1.4 CBC With Manual Diff 02/26/2007 White Blood [...] 4.2-5.4 Redcell Distribution WDTH 13 % 10.5-15 Laboratory test 02/05/2007 Nortriptyline (Pamelor) 140 NG/ML 50.0-150.0 61 finding Arterial Blood Gas 02/05/2007 Base Excess -5.1 Low -2.0-2.0 Stat Device ROOM AIR Bicarbonate 18.6 mmol/L Low 19-31 O2 Saturation 99 % High 95-98 Pco2 30 mmHg Low 35-45 PH 7.40 7.35-7.45 Po2 116 mmHg High 80-100 HCG Qualitative Stat 02/05/2007 Serum Qual HCG NEGATIVE Negative 62 CBC With Electronic Diff Stat 02/05/2007 White [...] 4.2-5.4 Redcell Distribution WDTH 13 % 10.5-15 P33S 02/05/2007 One Over Creatinine 0.90 Anion Gap 10.0 mmol/L 2-11 63 Albumin/Globulin Ratio 1.0 1-3 Albumin 3.8 GM/DL [...] 4.2-5.4 Redcell Distribution WDTH 14 % 10.5-15 Basic Metabolic Panel Stat 01/15/2007 One Over Creatinine 1.00 Anion Gap 8.0 mmol/L 2-11 64 BUN 20 mg/dL 6-24 Calcium 8.7 mg/dL 8.7-10.2 Chloride 107 mmol/L 101-111 Co2 (Carbon Dioxide) 23.0 mmol/L 22-32 Glucose 95 mg/dL 70-105 Potassium 3.6 mmol/L 3.5-5.0 Sodium 138 mmol/L 135-145 BUN/Creatinine Ratio 20.0 8-20 Creatinine 1.0 mg/dL 0.5-1.4 CBC With [...] 4.2-5.4 Redcell Distribution WDTH 13 % 10.5-15 P33S 01/15/2007 One Over Creatinine 0.90 Anion Gap 6.0 mmol/L 2-11 65 Albumin/Globulin Ratio 1.4 1-3 Albumin 3.9 GM/DL [...] Ratio 16.4 8-20 Creatinine 1.1 mg/dL 0.5-1.4 Basic Metabolic Panel Stat 01/15/2007 One Over Creatinine 0.90 Anion Gap 6.0 mmol/L 2-11 66 BUN 18 mg/dL 6-24 Calcium 9.1 mg/dL 8.7-10.2 Chloride 104 mmol/L 101-111 Co2 (Carbon Dioxide) 24.0 mmol/L 22-32 Glucose 98 mg/dL 70-105 Potassium 3.6 mmol/L 3.5-5.0 Sodium 134 mmol/L Low 135-145 BUN/Creatinine Ratio 16.4 8-20 Creatinine 1.1 mg/dL 0.5-1.4 1 *Ascorbic acid is present which may interfere with detection of blood. 2 Acute inflammation: >10.00 3 No interferon-gamma response to M. tuberculosis antigens was detected. Infection with M. tuberculosis is unlikely. A negative result alone does not exclude infection with M. tuberculosis. For detailed information regarding test interpretation see: [email or web address] 4 Test Performed by: [facility] - [facility] [address] [place] [id number] 5 REFERENCE VALUE 5.0-15.0 (Trough) ADDITIONAL INFORMATION Target steady-state trough concentrations vary depending on the type of transplant, concomitant immunosuppression, clinical/institutional protocols, and time post-transplant. Results should be interpreted in conjunction with this clinical information and any physical signs/symptoms of rejection/toxicity. Testing performed by Liquid Chromatography-Tandem Mass Spectrometry (LC-MS/MS). This test was developed and its performance characteristics determined by [facility] in a manner consistent with CLIA requirements. This test has not been cleared or approved by the U.S. Food and Drug Administration. Test Performed by: [facility] - [facility] [address] [place] [address] 6 Because ethnic data is not always readily [...] 15-29 5 Kidney failure <15 (or dialysis) 7 RESULT: 02:01,05 REFERENCE VALUE Not Applicable 8 RESULT: 03:01,03:03 DQ Serologic Equivalent: 7,9 REFERENCE VALUE Not Applicable 9 The absence of HLA celiac permissive genes would make the presence of celiac disease unlikely. ADDITIONAL INFORMATION Method: Molecular typing of HLA antigens performed using reverse SSOP and/or SSP methods, reported as serological equivalents and low to medium resolution molecular values. Performing Laboratory CLIA# [id number] Test Performed by: [facility] [address] [place] [address] 10 REFERENCE VALUE <4.0 (Negative) Test Performed by: [place] [id number] 11 Negative serology. Celiac disease unlikely. However, approximately 10% of patients with celiac disease are seronegative. Also, patients who are already adhering to a gluten-free diet may be seronegative. If celiac disease is highly clinically suspected, consider HLA-DQ typing. Test Performed by: [place] [id number] 12 It is recognized that currently available assays [...] 95% confidence interval of 99.78 to 99.96%. 13 Test Performed by: [place] [address] 14 REFERENCE VALUE <20.0 (Negative) Test Performed by: [place] [id number] 15 Because ethnic data is not always [...] <1.0 (Negative) Test Performed by: [facility] - [address] [address] 22 ADDITIONAL INFORMATION This test was developed and its performance characteristics determined by [facility] in a manner consistent with CLIA requirements. This test has not been cleared or approved by the U.S. Food and Drug Administration. Test Performed by: [facility] - [facility] [address] [place] [address] 23 Test Performed by: [facility] [address] [address] Test Performed by: [facility] [address] [address] 25 REFERENCE VALUE <30.0 (Negative) Test Performed by: [facility] [address] [address] 26 REFERENCE VALUE Not Applicable 27 HLA-B27 [...] INFORMATION Method: Flow Cytometry Performing Laboratory CLIA# [id number] Test Performed by: [address] [address] 28 If is still suspected, please repeat [...] USED FOR MEDICAL PURPOSES ONLY. . 30 Anion gap measurement may be of limited value in the presence of any alkalosis, especially in a combined acid base disorder. . 31 Note change in reference range as of 12/10/07. The change was based on recommendations from the [place] [employer]. 32 Please note change in reference range effective 07 . 33 TOXIC LEVELS: GREATER THAN 150 MCG/ML @ 4HR POST INGEST GREATER THAN 50 MCG/ML @ 12HR POST INGEST The detection limit for ACETAMINOPHEN is 10.0 mcg/ml . Values less than 10.0 mcg/ml cannot be accurately measured. . 34 The detection limit for ETHANOL is 10.0 mg/dl . Values less than 10.0 mg/dl cannot be accurately measured. . 35 The detection limit for SALICYLATE is 4.0 mg/dl. Values less than 4.0 mg/dl cannot be accurately measured. . 36 SPECIMEN CONTAINS NORMAL URETHRAL OR PERINEAL FADI AND DOES NOT SUGGEST URINARY TRACT INFECTION 37 Anion gap measurement may be of limited value in the presence of any alkalosis, especially in a combined acid base disorder. . 38 Note change in reference range as of 12/10/07. The change was based on recommendations from the [place] [employer]. 39 Please note change in [...] combined acid base disorder. . 45 The data center technician and regulatory agencies both recommend that a throat culture for beta strep be performed if a Rapid Group A Strep assay yields a negative result. Therefore a culture will be automatically performed on all negative samples. N^NEGATIVE FOR GROUP A STREP BY ENZYME IMMUNOASSAY^STREPA 46 NEGATIVE FOR GROUP A STREP 47 FEW [STAPHYLOCOCCUS AUREUS] WITH SCANT NORMAL THROAT FADI STAPHYLOCOCCUS AUREUS 48 If is still suspected, please repeat test after 48 to 72 hours. . 49 Anion gap measurement may be of limited value in the presence of any alkalosis, especially in a combined acid base disorder. . 50 SCANT NORMAL URETHRAL OR PERINEAL [...] a combined acid base disorder. . 61 THE PERFORMANCE CHARACTERISTICS OF THIS TEST WERE ESTABLISHED THROUGH VALIDATION BY [employer], AND NO APPROVAL IS REQUIRED BY THE U.S. FOOD AND DRUG ADMINISTRATION (FDA). [employer] IS REGULATED UNDER THE CLINICAL LABORATORY IMPROVEMENT AMENDMENTS OF 1988 ( CLIA ) QUALIFIED TO PERFORM HIGH COMPLEXITY CLINICAL TESTING. TEST PERFORMED BY: [employer] [address] [place] [address] 62 If is still suspected, please repeat test after 48 to 72 hours. . 63 Anion gap measurement may be of limited value in the presence of any alkalosis, especially in a combined acid base disorder. . 64 Anion gap measurement may be of [...] Procedures Date CPT Code Description Status 05/30/2017 20066 Admin Of Inj Completed 05/21/2017 Inject/Drain Joint/Bursa Small Completed 12/03/2016 73393 Anoscopy Completed 08/27/201618189 Aspiration &/Or Inj Of Ganglion Cyst(S) Any Completed Location Encounters Type Date Location Provider CPT E/M Dx Office Visit 06/29/2017 [facility], Grecia Mock, [place] [address] R51 2:50p Hospitalists R50.9 R11.11 Z94.4 Office Visit [facility]2017 [facility] [place] [address] R51 Hospitalists R50.9 R11.11 Z94.4 Office Visit 06/27/2017 2:46p [facility] Nirmala Blandon, [address] R51 Assoc, [employer] Hospitalists R50.9 R11.11 Z94.4 Office Visit 06/26/2017 2:45p [facility], Grecia Mock, [address] R50.9 Hospitalists [employer] R11.11 R51 Z94.4 Office Visit 06/18/2017 8:20a [facility] Sean Cruz [address]158 M05.79 Of Tiago Yanez Z79.899 M54.2 B37.0 R31.9 Office Visit 05/30/2017 1:30p [facility] Sean Cruz 51697 M05.79 Of Tiago Yanez Z79.899 M25.541 M25.542 M79.674 M54.2 M54.6 M54.5 Office Visit 05/19/2017 4:40p [facility] Sean Cruz [address]1859 M05.79 Of Tiago Yanez Z79.899 M25.571 M54.2 L30.9 Office Visit 04/25/2017 1:00p [facility] Sean Cruz, [address]015 R76.0 Tiago Yanez R05 M05.79 L30.9 Office Visit 12/03/2016 10:00a [facility] [place], [address] K60.2 Anesthesiology Resident M.D. Office Visit 08/27/2016 1:15p [facility] [place] [address] M67.442 C.M.A. Office Visit 10/19/2007 2:00p DO Not Use Anesthesiology Resident At [facility], [address] 346.00 [place] M.D.,FACP 296.33 Office Visit 08/17/2007 3:40p DO Not Use Anesthesiology Resident At [facility], [address] V72.84 [place] M.D.,FACP 474.9 724.2 346.00 Office Visit 07/07/2007 11:00a DO Not Use Anesthesiology Resident At [facility], [address] 751.61 [place] M.D.,FACP V42.7 346.00 311 474.9 Office Visit 06/01/2007 2:40p DO Not Use Anesthesiology Resident At [facility], [address] 789.06 [place] M.D.,FACP V42.7 296.33 112.0 Office Visit 03/19/2007 9:20a DO Not Use Anesthesiology Resident At [facility], [address] 535.40 [place] M.D.,FACP V42.7 311 041.11 346.00 Plan of Care Future Appointment(s):09/29/2017 9:40 am - Sean Cruz M.D. 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
[2017-08-31] MEDS ORDERED: diPHENhydraMINE IV* 50 MG/ML 1 ml VIAL (BENADRYL) IV ONE (16:36)
[2017-08-31] MEDS ORDERED: NS 0.9% 1000 ML* 3,000 ML IV ONE (16:37)
[2017-08-31] MEDS ORDERED: clonazePAM TAB(*) 0.5 MG PO PRN (16:59)
[2017-08-31] MEDS ORDERED: diPHENhydraMINE PO* 25 MG PO PRN (17:01)
[2017-08-31] MEDS ORDERED: oxyCODONE TAB* 5 MG TAB PO PRN (17:17)
[2017-08-31] MEDS ORDERED: Tacrolimus CAP(*) 1 MG PO SCH (18:00)
--- NOTE | 2017-08-31 20:38 | HP ---
CC: Neil Bernard MD * HISTORY AND PHYSICAL: DATE OF ADMISSION: 08/31/17 PRIMARY CARE PROVIDER: Neil Bernard MD ATTENDING PHYSICIAN: Michelle Hernandez DO * (dictated by Nirmala Garner NP). CHIEF COMPLAINT: Rash and sinus headache. HISTORY OF PRESENT ILLNESS: Ms. Prado is a 37-year-old female with a past medical history significant for congenital defect of the biliary atresia, status post liver transplant, kidney stones, RA, osteoarthritis, spondylolysis, who had been in her usual state of health when she woke up this morning, she noticed an area of redness on her left forearm and she noted that it was spreading to her upper left arm to her shoulder and face. She denies any recent fevers, chills, shortness of breath, nausea, vomiting, or diarrhea. The patient states that the rash was only on her arm and face. She reports at baseline having some redness in her cheeks. She denies any recent sick contacts. She states she last took her Enbrel last evening. She was also reporting a headache that she reports feels like a sinus headache. She denies any nasal congestion or postnasal drip. The patient reports having an episode of chest pain this morning that she reports felt as though she had gas trapped and she states that it has resolved, she believes after she was able to burp. She called her public affairs manager's office, who recommended that she come to the emergency room for further evaluation. While in the emergency room, the patient had labs that were unremarkable. She was afebrile. She was noted to be hypertensive, but she was noted to have a blood pressure cuff that was too small on her arm. When the cuff was adjusted, she then had normotensive blood pressure. She was not tachycardic or tachypneic. She had no complaints of difficulty breathing. The patient received clindamycin and 2 L of normal saline in the emergency room for a possible cellulitis. She had an EKG with no signs of acute ischemia. She had a negative troponin. Her inflammatory markers were within normal limits. She had a negative procalcitonin and negative urinalysis. The patient denies any pain or itching at her rash site. Due to the patient's complaint of chest pain and her rash, the hospitalists were asked to evaluate the patient for admission. PAST MEDICAL HISTORY: 1. Biliary atresia. 2. Kidney stones. 3. History of pyelonephritis. 4. History of kidney stones. 5. Rheumatoid arthritis. 6. Osteoarthritis. 7. Spondylolysis. PAST SURGICAL HISTORY: 1. Status post liver transplant. 2. Status post surgery for excision of bone spurs. 3. Status post tonsillectomy. 4. Status post surgery for her biliary atresia in 1979. HOME MEDICATIONS: Include: 1. Ibuprofen 400 mg oral every 6 hours as needed for pain. 2. Oxycodone 10 to 15 mg oral every evening. 3. Klonopin 0.5 mg oral every evening as needed for anxiety. 4. Benadryl 50 mg oral daily at bedtime as needed for sleep. 5. Prograf 1 mg oral every evening and 2 mg oral every morning. 6. Enbrel 50 mg subcu every 7 days on Saturdays. ALLERGIES: The patient has allergies to CEFTRIAXONE, GENTAMICIN, MORPHINE, ASPIRIN, and PENICILLIN. She reports allergies to ACETAMINOPHEN and IBUPROFEN secondary to her liver transplant, but does take them in limited doses. FAMILY HISTORY: The patient denies any family history of coronary artery disease, diabetes, or cancer. SOCIAL HISTORY: The patient denies, tobacco, alcohol, or recreational drug use. Her , Stefan Prado, will be her surrogate decision maker in the event she is unable to make decisions for herself. REVIEW OF SYSTEMS: I performed an 11-point review of systems. All the pertinent positives and negatives are mentioned in the history of present illness. The remaining of the review of systems are negative. PHYSICAL EXAMINATION GENERAL APPEARANCE: The patient is alert, pleasant, and appears to be in no acute distress. VITAL SIGNS: Temperature 97.3, heart rate 83, respiratory rate 13, O2 sat 100% on room air, blood pressure 126/96. HEENT: Normocephalic, atraumatic. Pupils are equal and reactive to light. Extraocular movements are intact. RESPIRATORY: The lungs are clear to auscultation bilaterally. There is no accessory muscle use. No wheezes, rales, or rhonchi. CARDIOVASCULAR: Regular rate and rhythm. S1, and S2 present. There are no murmurs, rubs, or gallops. ABDOMEN: Soft, nontender, and nondistended. There are bowel sounds present x4. EXTREMITIES: There is no lower extremity edema. DP and PT pulses are 2+ and symmetric. MUSCULOSKELETAL: There is no clubbing or cyanosis noted. The patient exhibits good strength in all extremities. NEUROLOGICAL: The patient is alert and oriented x4. Cranial nerves II through XII are grossly intact. SKIN: There are no obvious open areas. The patient has an approximate 7-cm area of erythema streaking on her left forearm. In addition, she has a rash on her left upper chest and upper breast in addition to a rash across her neck on the left side of her face on her cheek, from her left shoulder blade diagonal down her back and an area in the small of her back. DIAGNOSTIC STUDIES/LABORATORY DATA: Sodium 138, potassium 4.0, chloride 105, CO2 of 25, BUN 17, creatinine 0.70, glucose 100. White blood cell count 8.5, hemoglobin 12.7, hematocrit 36, and platelet count 177,000. Troponin 0.00. Procalcitonin less than 0.1. Urinalysis negative. EKG shows a normal sinus rhythm and rate of 84. There are no acute signs of ischemia. This EKG is similar to previous EKG from 09/09/16. Chest x-ray from today. Radiologist's impression: No active cardiopulmonary diseases noted. Brain CT from today. Radiologist's impression: No intracranial mass or hemorrhage is present. IMPRESSION: Ms. Prado is a 37-year-old female with past medical history significant for biliary atresia, status post liver transplant, kidney stones, history of rheumatoid arthritis on Enbrel, and osteoarthritis, who presented to the emergency room with complaints of chest pain earlier today and a rash. She will be admitted as an observation for chest pain. ASSESSMENT/PLAN: 1. Chest pain. Unclear etiology at this time. The patient's initial troponin is 0.00. We will continue to trend her troponins. We will check fasting lipids in the morning. At this point, I am going to hold on a stress test. 2. Rash. I suspect this is secondary to a contact dermatitis, although the patient denies any recent changes in foods, lotion, shampoo, etc. She will be provided with supportive care of Benadryl as needed. I do not suspect this is infectious such as a cellulitis. I will hold on further antibiotics. She did receive blood cultures and a dose of clindamycin in the emergency room. 3. Headache. The patient had a negative brain CT. She states this feels as though it is sinus pain. She has no signs of sinusitis. No nasal congestion or postnasal drip. She is afebrile. Has no leukocytosis. I will hold on any further antibiotics at this time. 4. Status post liver transplant. She will be continued on her Prograf. 5. Insomnia. She can have Benadryl or melatonin as needed for sleep. 6. Rheumatoid arthritis and osteoarthritis. She will be continued on oxycodone as needed for pain. I am going to hold her Enbrel. 7. Fluids, electrolytes, and nutrition. The patient will be on a regular diet. 8. Code status. Full code. 9. DVT prophylaxis. The patient is at low risk and will be encouraged to ambulate. 10. Disposition. Observation. TIME SPENT: Time for this admission was approximately 60 minutes, greater than half of that was spent with the patient discussing medications, past medical history, the events leading to her arrival today, and performing a physical examination. The case has been reviewed with the attending, Dr. Hernandez, who agrees with the plan of care. Reviewed by SHIELA PATIÑO 09/03/17 1241 [id number]/[facility] #: [id number] RADHA
[2017-08-31] MEDS ORDERED: Melatonin 3 MG TAB PO SCH (21:00)
--- NOTE | 2017-09-01 00:34 | ED ---
Shazia Slater Julia, scribed for Afua Perez MD on 08/31/17 at 1323 . Allergic Reaction/Systemic - HPI Summary HPI Summary: This patient is a 37 year old immunosuppressed F presenting to [facility] accompanied by her with a chief complaint of a 7cm erythematous streak on her left forearm when she woke up this morning at 7:15 that has been spreading to arm, shoulder, and face throughout the day; She first noticed the spreading around noon today. Pt denies fever. At 19:00 last night injected Enbrel into her abdomen. She takes Enbrel for RA and ankylosing spondylitis. The rash is not at an area of injection. Pt is concerned whether it is an allergic reaction to the Enbrel. Patient reports fatigue, blurry vision, pressure behind her eyes, and CP this morning that is currently resolved. Patient denies pain and itching over the affected area. Additionally denies fever, wheezing, and swollen or hoarse throat. Patient additionally complains of pain and swelling of a small area on her right mandible for the past couple of days. PMHx includes RA, enclosing spondylosis, and a liver transplant in 2004 for congenital biliary atresia. She takes 2 pills of Tacrolimus in the morning and one at night for the liver transplant. Dr. Cruz is her designer writer. The liver transplant was in [place], [place], and she sees them every 2 years. - History of Current Complaint Chief Complaint: EDAllergicReaction Hx Obtained From: Patient, Family/Public Health Engineer - Stefan Onset/Duration: Sudden Onset, Started hours ago Timing: Constant Severity Initially: Mild Severity Currently: Moderate Pain Intensity: 0 Pain Scale Used: 0-10 Numeric Location: Other - erythema - left forearm; Aggravating Factor(s): Nothing Alleviating Factor(s): Nothing Associated Signs And Symptoms: Positive: Chest Pain, Other: - pain behind her eyes, jaw pain. Negative: Cough Wheezing, Difficulty Breathing, Hoarseness - Related Hx Possible Reaction To: Medications - Enbrel - Allergies/Home Medications Allergies/Adverse Reactions: Allergies Allergy/AdvReac Type Severity Reaction Status Date / Time ceftriaxone Allergy Intermediate Hives Verified 08/31/17 12:47 gentamicin Allergy Intermediate Hives Verified 08/31/17 12:47 morphine Allergy Intermediate Hives Verified 08/31/17 12:47 acetaminophen Allergy Unknown Verified 08/31/17 12:47 Reaction Details aspirin Allergy Unknown Verified 08/31/17 12:47 Reaction Details Penicillins Allergy Unknown Verified 08/31/17 12:47 Reaction Details ibuprofen AdvReac Intermediate See Comment Verified 08/31/17 12:47 Home Medications: Home Medications Etanercept SYR (NF) [Enbrel (NF)] 50 mg SUBCUT Q7D 08/31/17 [History Confirmed 08/31/17] Ibuprofen TAB* [Advil TAB*] 200 mg PO Q6H PRN 08/31/17 [History Confirmed ] Tacrolimus CAP(*) [Prograf CAP(*)] 1 mg PO QPM 08/31/17 [History Confirmed 08/31] Tacrolimus CAP(*) [Prograf CAP(*)] 2 mg PO QAM 08/31/17 [History Confirmed 08/31] clonazePAM TAB(*) [KlonoPIN TAB(*)] 0.5 mg PO BEDTIME PRN 08/31/17 [History Confirmed 08/31/17] diPHENhydraMINE PO* [Benadryl PO 25 MG TAB*] 50 mg PO BEDTIME PRN 08/31/17 [ History Confirmed 08/31/17] oxyCODONE TAB* [Roxycodone TAB 5 mg*] 10 - 15 mg PO QPM 08/31/17 [History Confirmed 08/31/17] PMH/Surg Hx/FS Hx/Imm Hx Previously Healthy: No Endocrine/Hematology History: Reports: Hx Thyroid Disease, Hx Anemia Denies: Hx Diabetes Cardiovascular History: Denies: Hx Hypertension Respiratory History: Denies: Hx Asthma, Hx Chronic Obstructive Pulmonary Disease (COPD) GI History: Reports: Hx Gastroesophageal Reflux Disease, Hx Hiatal Hernia, Other GI Disorders - Liver transplant for biliary atresia, 2004 Denies: Hx Ulcer History: Reports: Hx Kidney Infection - R/T STONE 2008, Hx Kidney Stones - NO SURGERY Musculoskeletal History: Reports: Hx Arthritis - ankylosing spondylitis , Hx Rheumatoid Arthritis, Other Musculoskeletal History - 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 Sensory History: Denies: Hx Contacts or Glasses, Hx Hearing Aid Opthamlomology History: Denies: Hx Contacts or Glasses Neurological History: Reports: Hx Migraine - HX OF AFTER LIVER TRANSPLANT 2004 NONE RECENT Psychiatric History: Reports: Hx Anxiety, Hx Depression - Surgical History Surgery Procedure, Year, and Place: 1979 ifeanyi procedure, (bad liver) ,D&C 1996, Tubal ligation 2000, liver transplant 07/2004 (liver failure) [facility], tonsillectomy 2008 [facility] Hx Anesthesia Reactions: Yes - HIGH ISABELL TO PAIN MEDS REPORTS AWAKENING DURING PROCEDURES Infectious Disease History: No Infectious Disease History: Reports: Hx of Known/Suspected MRSA Denies: Hx Clostridium Difficile, Hx Hepatitis, Hx Human Immunodeficiency Virus (HIV), Hx Shingles, Hx Tuberculosis, Hx Known/Suspected VRE, Hx Known/ Suspected VRSA, History Other Infectious Disease, Traveled Outside the [place] in Last 30 Days - Family History Known Family History: Positive: Other - Mother -- HLD; Father -- unspecified thyroid issue Negative: Cardiac Disease, Hypertension, Diabetes - Social History Alcohol Use: None Hx Substance Use: No Substance Use Type: Reports: None Hx Tobacco Use: No Smoking Status (MU): Never Smoked Tobacco Review of Systems Negative: Fever, Chills Positive: Blurred Vision Negative: Sore Throat Positive: Chest Pain Negative: Shortness Of Breath Gastrointestinal: Negative Positive: no symptoms reported Positive: Rash Positive: Headache - eye pressure Psychological: Normal All Other Systems Reviewed And Are Negative: Yes Physical Exam - Summary Physical Exam Summary: Appearance: Ill-appearing, moderate pain distress, Well-nourished Skin: Warm, color reflects adequate perfusion; Lymphangitic streak on left ventral forearm 7cm long, small 1cm ecchymosis on right mid abdomen at injection site of Enbrel Head: Atraumatic, flushed cheeks, ethmoid sinus tenderness Eyes: Conjunctiva clear, anicteric ENT: Point tenderness on R mandible half way between chin and ear without defined mass, dry oral mucousa, TMs clear, Neck: Supple, no nodes, no JVD. Respiratory: Lungs clear, Normal breath sounds, no respiratory distress Cardio: RRR, No murmur, pulses normal, brisk capillary refill Abdomen: soft, nontender, liver non-palpable, well healed scars s/p liver transplant Bowel sounds: present Musculoskeletal: Strength Intact/ ROM intact. No calf tenderness. No edema. Psychological: Normal Neuro: Alert, muscle tone normal, no focal deficit Triage Information Reviewed: Yes Vital Signs On Initial Exam: Initial Vitals Temp Pulse Resp BP Pulse Ox 97.3 F 98 16 133/98 99 08/31/17 12:48 08/31/17 12:48 08/31/17 12:48 08/31/17 12:48 08/31/17 12:48 Vital Signs Reviewed: Yes Diagnostics - Vital Signs Vital Signs Temp Pulse Resp BP Pulse Ox 08/31/17 12:48 97.3 F 98 16 133/98 99 - Laboratory Lab Results: Lab Results 08/31/17 08/31/17 08/31/17 Range/Units 14:14 14:14 14:14 WBC 8.5 (3.5-10.8) 10^3/ul RBC 4.40 (4.0-5.4) 10^6/ul Hgb 12.7 (12.0-16.0) g/dl Hct 36 (35-47) % MCV 83 (80-97) fL MCH 29 (27-31) pg MCHC 35 (31-36) g/dl RDW 15 (10.5-15) % Plt Count 177 (150-450) 10^3/ul MPV 8.5 (7.4-10.4) um3 Neut % (Auto) 67.2 (38-83) % Lymph % (Auto) 23.4 L (25-47) % [place] % (Auto) 7.8 H (0-7) % Eos % (Auto) 0.8 (0-6) % Baso % (Auto) 0.8 (0-2) % Absolute Neuts (auto) 5.7 (1.5-7.7) 10^3/ul Absolute Lymphs (auto) 2.0 (1.0-4.8) 10^3/ul Absolute Monos (auto) 0.7 (0-0.8) 10^3/ul Absolute Eos (auto) 0.1 (0-0.6) 10^3/ul Absolute Basos (auto) 0.1 (0-0.2) 10^3/ul Absolute Nucleated RBC 0 10^3/ul Nucleated RBC % 0 ESR 18 H (0-14) mm/Hr INR (Anticoag Therapy) 0.89 (0.77-1.02) APTT 30.6 (26.0-36.3) seconds Fibrinogen 293.2 (110.8-404.3) mg/dL Sodium 138 L (139-145) mmol/L Potassium 4.0 (3.5-5.0) mmol/L Chloride 105 (101-111) mmol/L Carbon Dioxide 25 (22-32) mmol/L Anion Gap 8 (2-11) mmol/L BUN 17 (6-24) mg/dL Creatinine 0.70 (0.51-0.95) mg/dL Est GFR ( Amer) 119.8 (>60) Est GFR (Non-Af Amer) 93.2 (>60) BUN/Creatinine Ratio 24.3 H (8-20) Glucose 100 (70-100) mg/dL Lactic Acid (0.5-2.0) mmol/L Calcium 8.8 (8.6-10.3) mg/dL Total Bilirubin 0.40 (0.2-1.0) mg/dL Direct Bilirubin 0.00 L (0.03-0.18) mg/dL Indirect Bilirubin Clinical Assistant AST 13 (13-39) U/L ALT 10 (7-52) U/L Alkaline Phosphatase 84 (34-104) U/L Total Creatine Kinase 33 (10-223) U/L Troponin I 0.00 (<0.04) ng/mL C-Reactive Protein 1.67 (< 5.00) mg/L Total Protein 7.1 (6.4-8.9) g/dL Albumin 3.8 (3.2-5.2) g/dL Globulin 3.3 (2-4) g/dL Albumin/Globulin Ratio 1.2 (1-3) Procalcitonin (<0.6) ng/mL Urine Color Urine Appearance Urine pH (5-9) Ur Specific [place] (1.010-1.030) Urine Protein (Negative) Urine Ketones (Negative) Urine Blood (Negative) Urine Nitrate (Negative) Urine Bilirubin (Negative) Urine Urobilinogen (Negative) Ur Leukocyte Esterase (Negative) Urine Glucose (Negative) 08/31/17 08/31/17 08/31/17 Range/Units 14:14 14:37 14:37 WBC (3.5-10.8) 10^3/ul RBC (4.0-5.4) 10^6/ul Hgb (12.0-16.0) g/dl Hct (35-47) % MCV (80-97) fL MCH (27-31) pg MCHC (31-36) g/dl RDW (10.5-15) % Plt Count (150-450) 10^3/ul MPV (7.4-10.4) um3 Neut % (Auto) (38-83) % Lymph % (Auto) (25-47) % [place] % (Auto) (0-7) % Eos % (Auto) (0-6) % Baso % (Auto) (0-2) % Absolute Neuts (auto) (1.5-7.7) 10^3/ul Absolute Lymphs (auto) (1.0-4.8) 10^3/ul Absolute Monos (auto) (0-0.8) 10^3/ul Absolute Eos (auto) (0-0.6) 10^3/ul Absolute Basos (auto) (0-0.2) 10^3/ul Absolute Nucleated RBC 10^3/ul Nucleated RBC % ESR (0-14) mm/Hr INR (Anticoag Therapy) (0.77-1.02) APTT (26.0-36.3) seconds Fibrinogen (110.8-404.3) mg/dL Sodium (139-145) mmol/L Potassium (3.5-5.0) mmol/L Chloride (101-111) mmol/L Carbon Dioxide (22-32) mmol/L Anion Gap (2-11) mmol/L BUN (6-24) mg/dL Creatinine (0.51-0.95) mg/dL Est GFR ( Amer) (>60) Est GFR (Non-Af Amer) (>60) BUN/Creatinine Ratio (8-20) Glucose (70-100) mg/dL Lactic Acid 0.9 (0.5-2.0) mmol/L Calcium (8.6-10.3) mg/dL Total Bilirubin (0.2-1.0) mg/dL Direct Bilirubin (0.03-0.18) mg/dL Indirect Bilirubin AST (13-39) U/L ALT (7-52) U/L Alkaline Phosphatase (34-104) U/L Total Creatine Kinase (10-223) U/L Troponin I (<0.04) ng/mL C-Reactive Protein (< 5.00) mg/L Total Protein (6.4-8.9) g/dL Albumin (3.2-5.2) g/dL Globulin (2-4) g/dL Albumin/Globulin Ratio (1-3) Procalcitonin < 0.1 (<0.6) ng/mL Urine Color Straw Urine Appearance Clear Urine pH 5.0 (5-9) Ur Specific [place] 1.005 L (1.010-1.030) Urine Protein Negative (Negative) Urine Ketones Negative (Negative) Urine Blood Negative (Negative) Urine Nitrate Negative (Negative) Urine Bilirubin Negative (Negative) Urine Urobilinogen Negative (Negative) Ur Leukocyte Esterase Negative (Negative) Urine Glucose Negative (Negative) 08/31/17 Range/Units 16:49 WBC (3.5-10.8) 10^3/ul RBC (4.0-5.4) 10^6/ul Hgb (12.0-16.0) g/dl Hct (35-47) % MCV (80-97) fL MCH (27-31) pg MCHC (31-36) g/dl RDW (10.5-15) % Plt Count (150-450) 10^3/ul MPV (7.4-10.4) um3 Neut % (Auto) (38-83) % Lymph % (Auto) (25-47) % [place] % (Auto) (0-7) % Eos % (Auto) (0-6) % Baso % (Auto) (0-2) % Absolute Neuts (auto) (1.5-7.7) 10^3/ul Absolute Lymphs (auto) (1.0-4.8) 10^3/ul Absolute Monos (auto) (0-0.8) 10^3/ul Absolute Eos (auto) (0-0.6) 10^3/ul Absolute Basos (auto) (0-0.2) 10^3/ul Absolute Nucleated RBC 10^3/ul Nucleated RBC % ESR (0-14) mm/Hr INR (Anticoag Therapy) (0.77-1.02) APTT (26.0-36.3) seconds Fibrinogen (110.8-404.3) mg/dL Sodium (139-145) mmol/L Potassium (3.5-5.0) mmol/L Chloride (101-111) mmol/L Carbon Dioxide (22-32) mmol/L Anion Gap (2-11) mmol/L BUN (6-24) mg/dL Creatinine (0.51-0.95) mg/dL Est GFR ( Amer) (>60) Est GFR (Non-Af Amer) (>60) BUN/Creatinine Ratio (8-20) Glucose (70-100) mg/dL Lactic Acid (0.5-2.0) mmol/L Calcium (8.6-10.3) mg/dL Total Bilirubin (0.2-1.0) mg/dL Direct Bilirubin (0.03-0.18) mg/dL Indirect Bilirubin AST (13-39) U/L ALT (7-52) U/L Alkaline Phosphatase (34-104) U/L Total Creatine Kinase (10-223) U/L Troponin I 0.00 (<0.04) ng/mL C-Reactive Protein (< 5.00) mg/L Total Protein (6.4-8.9) g/dL Albumin (3.2-5.2) g/dL Globulin (2-4) g/dL Albumin/Globulin Ratio (1-3) Procalcitonin (<0.6) ng/mL Urine Color Urine Appearance Urine pH (5-9) Ur Specific [place] (1.010-1.030) Urine Protein (Negative) Urine Ketones (Negative) Urine Blood (Negative) Urine Nitrate (Negative) Urine Bilirubin (Negative) Urine Urobilinogen (Negative) Ur Leukocyte Esterase (Negative) Urine Glucose (Negative) Result Diagrams: 08/31/17 14:14 08/31/17 14:14 Lab Statement: Any lab studies that have been ordered have been reviewed, and results considered in the medical decision making process. - Radiology CXR Radiology Interpretation Completed By: Radiologist - NO ACTIVE CARDIOPULMONARY DISEASE IS NOTED. ED Physician has reviewed this report. - CT Brain CT CT Interpretation Completed By: Radiologist - No intracranial mass or hemorrhage is present. ED Physician has reviewed this report. - EKG 1437 Cardiac Rate: NL EKG Rhythm: Sinus Rhythm - [address] Segment: Non-Specific Ectopy: None EKG Interpretation: nml AVIVCT, nml QTc, nml axis EKG Comparison: No Significant Change - 09/09/16 1705 Cardiac Rate: NL EKG Rhythm: Sinus Rhythm - at [address] Segment: Normal Ectopy: None EKG Interpretation: nml AVIVCT, nml QTc, nml axis EKG Comparison: No Significant Change - from 14:37 Re-Evaluation - Re-Evaluation 1 Re-Evaluation Time: 14:05 Change: Unchanged Comment: Pt is informed of admission for IV abx to treat possible infectious etiology of pt's rash and lymphangitic streak in this immunocompromised pt. 2 Re-Evaluation Time: 16:34 Change: Worse - Pt has CP. Voice is normal. Heart is SI S2. Lungs are clear no wheezes. Rash is more extensive now on neck, chest, and back. A second EKG will be ordered and troponins. Allergic Reaction Course/Dx - Course Course Of Treatment: 37 y/o F presents to ED with an erythematous streak on her ventral left forearm beginning this morning that has been spreading throughout the day. Last night she injected Enbrel into her abdomen which she takes for RA. PMHx includes liver transplant secondary to congenital biliary atresia. So pt is immunosuppressed and has a spreading rash. At 16:34 pt c/o CP in bathroom. CXR was already obtained. Will give Benadryl and IV fluids to treat the chest pain as possibly due to allergic reaction to the Enbrel, although pt had no wheezes. Will obtain a troponin and EKG.While in ED erythematous area spreads to her back. Both EKGs, CXR, and Brain CT are unremarkable. Lab results are unremarkable. Patient is afebrile. Dr. Anguiano, covering for Dr. Cruz, recommends treating symptoms as infection instead of allergic reaction. Pt is given Clindamycin IV x 1 in the ED with sepsis protocol fluids. Dr. Hernandez agrees to admit this pt for further eval of the chest pain and rash. Pt is agreeable to admission. - Diagnoses Differential Diagnosis/HQI/PQRI: Positive: Anaphylaxis, Local Allergic Reaction , Other - infection, sepsis Provider Diagnoses: Chest pain, Cellulitis, Rheumatoid arthritis, Status post liver transplant, Immunocompromised patient, Rash and nonspecific skin eruption - Provider Notifications Discussed Care Of Patient With: Michelle Hernandez - hospitalist Time Discussed With Above Provider: 14:00 Instructed by Provider To: Admit As Inpatient - Critical Care Time Critical Care Time: 30-74 min - 30 mins Discharge - Sign-Out/Discharge Documenting (check all that apply): Discharge/Admit/Transfer - admit - Discharge Plan Condition: Stable Disposition: ADMITTED TO [facility] - Billing Disposition and Condition Condition: STABLE [place] [place] Consult: At 13:58 Dr. Anguiano recommends treating symptoms as infection. The documentation as recorded by the Shazia ross Julia accurately reflects the service I personally performed and the decisions made by Chris interiano Barbara J, MD.
[2017-09-01] MEDS ORDERED: Tacrolimus CAP(*) 1 MG PO SCH (09:00)
[2017-09-01 09:45] VITALS: BP 115/71
--- NOTE | 2017-09-01 11:07 | DS ---
CC: Dr. Markham * DISCHARGE SUMMARY: DATE OF ADMISSION: DATE OF DISCHARGE: 09/01/17 HOSPITAL COURSE: This 37-year-old woman presented with a rash, headache, and some chest pain. She takes etanercept every Friday. She took it this past Friday, the next day she had some chest pain and a rash on her left forearm. It was noted that the rash was on her left back as well. However, on the day of discharge, 09/01/17, the rash was completely gone. She had no chest pain. Her headache was gone. She felt quite well. 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 Her works at the [employer]. He has not had any recent illness. Possibly this is a viral rash, so time courses are very brief. This may have been some type of reaction to the etanercept; however , this is an important drug for her and they would not want her to discontinue it and thus we reassure that was necessary, the reaction itself is relatively mild with no sequelae. She will continue to take her etanercept every Friday for now. FINAL DIAGNOSES: 1. Chest pain with rash of uncertain etiology. 2. Status post liver transplant. 3. Rheumatoid arthritis. DISCHARGE MEDICATIONS: 1. Diphenhydramine 25 mg every 6 hours p.r.n. and 50 mg h.s. p.r.n. 2. Ibuprofen 200 mg every 6 hours p.r.n. 3. Etanercept 50 mg subcu every 7 days on Friday. 4. Oxycodone 5 mg as prescribed. 5. Tacrolimus 1 mg h.s. and 2 mg in the morning. 6. Clonazepam 0.5 mg h.s. p.r.n. [id number]/[facility] #: [id number] [facility]
== END 2017-09-01 11:09 | disposition home or self-care (01) ==
LOC: ED 12:45 → MEDTELE 17:57
PROVIDERS: ADMIT Internal Medicine; ATTEND Internal Medicine
DX: R07.9 Chest pain, unspecified (principal); R21 Rash and other nonspecific skin eruption; Z94.4 Liver transplant status; M06.9 Rheumatoid arthritis, unspecified; R51 Headache; Q44.2 Atresia of bile ducts; N20.0 Calculus of kidney; Z87.448 Personal history of other diseases of urinary system; H53.8 Other visual disturbances
CPT/HCPCS: 36415; 70450; 71045; 80053; 81003; 82248; 82550; 83605; 84145; 84484; 85025; 85384; 85610; 85652; 85730; 86140; 87040; 93005; 96374; 96375; 99284; A9270-GY; G0378; J1200; J7507

== ENCOUNTER 2017-12-23 13:03 | Emergency (ER) | payer OTHER ==
--- OUTSIDE RECORDS SUMMARY | 2017-12-23 13:20 | XMS REPORT ---
:1980 External Reference #:[id number] Author Organization [facility] Address [address] [place] [address] [place] [address] Phone [phone] Care Team Providers Name Role Phone Neil Bernard MD Primary Care Physician Unavailable Payers Type Date Identification Numbers Payment Provider Subscriber Commercial Effective: Policy Number: [id number] [employer] Antonietta Rader 2007 Medicaid PayID: [id number] [address] [address] [place] [address] Problems Date Description Provider Status Onset: 03/19/2007 [...] 08/17/2007 Low back pain Meño Markham, Active M.Mitch,FACP Family History Date Family Member(s) Problem(s) Comments General Diabetes General Heart Disease General Hypertension General Cancer Maternal Grandmother due to Heart Disease () Social History Type Date Description Comments Marital Status 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 mouth four times a day. (half dose in each side of mouth), watch for hives Cyclobenzaprine 06/03/ Active Tablets 10mg 60tab 1 tablet Sean HCL 2017 s by mouth Anthony, twice M.D. daily as needed muscle spasms Enbrel Sureclick 05/19/ Active Solution 50mg/ml 3.92u Inject Z79.899 2017 Auto-Inject nits 1ML Under Anthony, The Skin M.D. Every Week Tacrolimus / Active 1mg 2 in am, Unknown 0000 1 in pm Oxycodone HCL / Active Tablets 5mg 90tab take one M05.79 Sean s by mouth Anthony, every M.D. eight hours as needed for pain (if not too soon) Clonazepam / Active Tablets 2mg 1 by [...] 1 po bid Meño 2007 - s DLinda Markham, M.D.,FACP 2017 Lomotil 10/05/ Hx Tablets 2.5mg 40tab 1 tab qid Meño 2007 - s prn DLinda Markham, M.D.,FACP 2008 Remeron 08/16/ Hx Tablets 30mg 30tab 1 Tabs 296.33 Meño 2007 - s PO Q hs DLinda Markham, M.D.,FACP 2017 Cipro 07/08/ Hx Tablets 500mg 14tab 1 PO bid Meño 2007 - s x 7days DLinda Markham, M.D.,FACP 2007 Frova 07/06/ Hx Tablets 2.5mg 12tab q2h prn 346.00 Meño 2007 - s mdd2 DLinda Markham, M.D.,FACP 2017 Prednisolone 06/01/ Hx Tablets 5mg 60tab 1 tab qod Meño 2007 - s Mitch Markham, M.D.,FACP 2007 Mycelex 06/01/ Hx Rolly 10mg 50uni 5x/day 112.0 Meño 2008 - ts for 10 D. Shahrzad, 08/16/ days M.D.,FACP 2008 Remeron 06/01/ Hx Tablets 30mg 30tab 1/2 tab 296.33 Meño 2007 - s po q hs Mitch Markham, [...] 5 cc q 8 466.0 Iram Coyne enesin 2008 - hours prn Mitch Markham, 06/01/ cough M.D.,FACP 2007 Prograf 03/19/ Hx Capsules 1mg 3 PO bid Meño Markham, .D.,FACP 2017 Cellcept 03/19/ Hx Tablets 500mg 1 bid Meño Markham, .D.,FACP 2017 Omeprazole 03/19/ Hx Capsules DR 20mg 30cap qd PO Meño Mcmahon - emilia Markham, .D.,FACP 2008 Topamax 03/19/ Hx Tablets 25mg 120ta 2 Tabs Meño 2006 - bs bid Mitch Markham, .D.,FACP 2008 Frova 03/19/ Hx Tablets 2.5mg 18tab Q2H prn Meño Montoya s MDD2 Mitch Markham, .D.,FACP 2008 Fluoxetine HCL 03/19/ Hx Capsules 20mg 30cap PO qd Meño Montoya s Mitch Markham, .D.,FACP 2007 Promethazine HCL 03/19/ Hx Tablets 25mg 1 qhs prn Meño Markham, .D.,FACP 2007 Prilosec 03/19/ Hx Capsules DR 20mg 30cap 1 po qd 535.40 Meño Markham, .D.,FACP 2017 Reglan 03/19/ Hx Tablets 5mg 30tab qac prn 535.40 Meño Markham, .D.,FACP 2007 Vistaril 03/19/ Hx Capsules 25mg 346.00 Meño Markham, .D.,FACP 2017 Dilaudid / Hx Tablets 2mg 120ta 1-2 tid Meño 0000 - bs po prn DLinda Markham, .DLinda,FACP 2007 Prednisone / Hx Tablets 10mg 90tab Take one Sean 0000 - s half Anthony, 08/06/ capsule/t MLionel 2018 ablet daily by mouth Medications Administered in Office Medication Date Status Form Strength Qnty SIG Indications Ordering Provider Triamcinolone 05/30/ Administered Injection Sean ([employer]) Minda Cruz M.D. Triamcinolone 05/21/ Administered Injection Sean Morrison) Minda Cruz M.D. No Injection 08/27/ Administered Injection Gordo 2016 MD Brayan Immunizations CPT Code Status Date Vaccine Reaction Lot # [id number] Given 09/29/2017 Pneumococcal Conjugate no immediate reaction [id number] Vaccine 13 Valent For noted Intramuscular Use Vital Signs Date Vital Result Comment 12/09/2017 Height 65.5 inches 5'5.50" Weight 157.50 lb Heart Rate 108 /min BP Systolic Sitting 110 mmHg BP Diastolic Sitting 76 mmHg Pain Level 1 O2 % BldC Oximetry 94 % BMI (Body Mass Index) 25.8 kg/m2 09/29/2017 Height 65.5 inches 5'5.50" Weight 151.00 lb Heart Rate 90 /min BP Systolic Sitting 124 mmHg BP Diastolic Sitting 84 mmHg Respiratory Rate 14 /min Pain Level 3 BMI (Body Mass Index) 24.7 kg/m2 08/06/2017 Height 65.5 inches 5'5.50" Weight 149.00 [...] Test Date Test Result H/L Range Note Laboratory test finding 09/29/2017 Erythrocyte Sed Rate 17 mm/Hr High 0- 14 C Reactive Protein 5.05 mg/L High < 5.00 1 CBC Auto Diff 09/29/2017 White Blood Count 7.3 10^3/uL 3.5-10.8 Red Blood Count 4.17 10^6/uL 4.00-5.40 Hemoglobin 11.8 g/dL Low 12.0-16.0 Hematocrit 35 % 35-47 Mean Corpuscular Volume 84 fL 80-97 Mean Corpuscular Hemoglobin 28 pg 27-31 Mean Corpuscular HGB Conc 34 g/dL 31-36 Red Cell Distribution Width 14 % 10.5-15 Platelet Count 138 10^3/uL Low 150-450 Mean Platelet Volume 9.2 um3 7.4-10.4 Abs Neutrophils 5.1 10^3/uL 1.5-7.7 Abs Lymphocytes 1.6 10^3/uL 1.0-4.8 Abs Monocytes 0.5 10^3/uL 0-0.8 Abs Eosinophils 0.1 10^3/uL 0-0.6 Abs Basophils 0 10^3/uL 0-0.2 Abs Nucleated RBC 0 10^3/uL Granulocyte % 69.6 % 38-83 Lymphocyte % 21.2 % Low 25-47 Monocyte % 7.3 % High 0-7 Eosinophil % 1.3 % 0-6 Basophil % 0.6 % 0-2 Nucleated Red Blood Cells % 0 Comp Metabolic Panel 09/29/2017 Sodium 137 mmol/L Low 139-145 Potassium 4.0 mmol/L 3.5-5.0 Chloride 103 mmol/L 101-111 Co2 Carbon Dioxide 28 mmol/L 22-32 Anion Gap 6 mmol/L 2-11 Glucose 88 mg/dL 70-100 Blood Urea Nitrogen 22 mg/dL 6-24 Creatinine 0.87 mg/dL 0.51-0.95 BUN/Creatinine Ratio 25.3 High 8-20 Calcium 8.8 mg/dL 8.6-10.3 Total Protein 6.7 g/dL 6.4-8.9 Albumin 3.8 g/dL 3.2-5.2 Globulin 2.9 g/dL 2-4 Albumin/Globulin Ratio 1.3 1-3 Total Bilirubin 0.50 mg/dL 0.2-1.0 Alkaline Phosphatase 73 U/L 34-104 Alt 9 U/L 7-52 Ast 13 U/L 13-39 Egfr Non- 72.5 >60 Egfr 93.2 >60 2 Urinalysis Profile 09/29/2017 Urine Color Yellow Urine Appearance Cloudy Urine Specific Temple 1.024 1.010-1.030 Urine pH 5.0 5-9 Urine Urobilinogen Negative Negative Urine Ketones Negative Negative Urine Protein Negative Negative Urine Leukocytes Negative Negative Urine Blood Negative Negative * * Negative 3 Urine Nitrite Negative Negative Urine Bilirubin Negative Negative Urine Glucose Negative Negative Laboratory test finding 09/29/2017 Miscellaneous Test See Comment 4 Laboratory test finding 08/06/2017 Immunoglobulin M (Igm) 234 mg/dL 37 - 286 5 Immunoglobulin A (Iga) 387 mg/dL 61 - 356 6 Immunoglobulin G (Igg) 1430 mg/dL 767 - 1590 7 Miscellaneous Test See Comment 8 Urine Culture And Sensitivities 08/06/2017 Urine Culture SEE RESULT BELOW 9 Urinalysis Profile 08/06/2017 Urine Color Yellow Urine Appearance Cloudy Urine Specific Temple 1.009 Low 1.010-1.030 Urine pH 5.0 5-9 Urine Urobilinogen Negative Negative Urine Ketones Negative Negative Urine Protein Negative Negative Urine Leukocytes 1+ Negative Urine Blood Negative Negative * * Negative 10 Urine Nitrite Negative Negative Urine Bilirubin Negative Negative Urine Glucose Negative Negative Urine White Blood Cell Trace(0-5/hpf) Absent Urine Red Blood Cell Trace(0-2/hpf) Absent Urine Bacteria Absent Absent Urine Squamous Epithelial Cell Present Absent Comp Metabolic Panel 08/06/2017 Sodium 136 mmol/L Low 139-145 Potassium 4.2 mmol/L 3.5-5.0 Chloride 103 mmol/L 101-111 Co2 Carbon Dioxide 25 mmol/L 22-32 Anion Gap 8 mmol/L 2-11 Glucose 91 mg/dL 70-100 Blood Urea Nitrogen 19 mg/dL 6-24 Creatinine 0.74 mg/dL 0.51-0.95 BUN/Creatinine Ratio 25.7 High 8-20 Calcium 9.3 mg/dL 8.6-10.3 Total Protein 7.7 g/dL 6.4-8.9 Albumin 4.2 g/dL 3.2-5.2 Globulin 3.5 g/dL 2-4 Albumin/Globulin Ratio 1.2 1-3 Total Bilirubin 0.40 mg/dL 0.2-1.0 Alkaline Phosphatase 99 U/L 34-104 Alt 11 U/L 7-52 Ast 13 U/L 13-39 Egfr Non- 87.4 >60 Egfr 112.4 >60 11 CBC Auto Diff 08/06/2017 White Blood Count 7.8 10^3/uL 3.5-10.8 Red Blood Count 4.89 10^6/uL 4.0-5.4 Hemoglobin 13.4 g/dL 12.0-16.0 Hematocrit 40 % 35-47 Mean Corpuscular Volume 82 fL 80-97 Mean Corpuscular Hemoglobin 28 pg 27-31 Mean Corpuscular HGB Conc 34 g/dL 31-36 Red Cell Distribution Width 16 % High 10.5-15 Platelet Count 192 10^3/uL 150-450 Mean Platelet Volume 9.7 um3 7.4-10.4 Abs Neutrophils 5.2 10^3/uL 1.5-7.7 Abs Lymphocytes 1.9 10^3/uL 1.0-4.8 Abs Monocytes 0.6 10^3/uL 0-0.8 Abs Eosinophils 0.1 10^3/uL 0-0.6 Abs Basophils 0.1 10^3/uL 0-0.2 Abs Nucleated RBC 0 10^3/uL Granulocyte % 65.8 % 38-83 Lymphocyte % 24.4 % Low 25-47 Monocyte % 7.8 % High 0-7 Eosinophil % 1.3 % 0-6 Basophil % 0.7 % 0-2 Nucleated Red Blood Cells % 0.1 Anca AB Ser If 08/06/2017 C-Anca Negative Negative P-Anca Negative Negative 12 Laboratory test finding 08/06/2017 Erythrocyte Sed Rate 22 mm/Hr High 0- 14 C Reactive Protein 1.66 mg/L < 5.00 13 Urinalysis Profile 05/30/2017 Urine Color Yellow Urine Appearance Clear Urine Specific Temple 1.010 1.010-1.030 Urine pH 5.0 5-9 Urine Urobilinogen Negative Negative Urine Ketones Negative Negative Urine Protein Negative Negative Urine Leukocytes Negative Negative Urine Blood 1+ Negative * * Negative 14 Urine Nitrite Negative Negative Urine Bilirubin Negative Negative Urine Glucose Negative Negative Urine White Blood Cell Trace(0-5/hpf) Absent Urine Red Blood Cell Trace(0-2/hpf) Absent Urine Bacteria Absent Absent Urine Squamous Epithelial Cell Present Absent Laboratory test finding 05/21/2017 C Reactive Protein 21.13 mg/L High < 5.00 15 Erythrocyte Sed Rate 49 mm/Hr High 0-14 Quantiferon Gold TB 05/21/2017 M tuberculosis by Quantiferon Negative Negative 16 TB Ag minus Nil Result -0.01 IU/mL TB Mitogen minus Nil Result 8.32 IU/mL TB Nil Result 0.11 IU/mL 17 Laboratory test finding 05/21/2017 Creatine Kinase(CK) 30 U/L 10-223 Magnesium 1.7 mg/dL Low 1.9-2.7 Tacrolimus 2.4 ng/mL 18 CBC Auto Diff 05/21/2017 White Blood Count [...] Egfr Non- 93.6 >60 Egfr 120.4 >60 19 Celiac Hla 05/21/2017 [id number] SEE BELOW 20 [id number]-DQB1 SEE BELOW 21 Celiac Gene Pairs Present? No Celiac Gene Interpretation See Comment 22 Celiac Panel 05/21/2017 Tissue Transglutaminase IgA Ab <1.2 U/mL 23 Immunoglobulin A 378 mg/dL 61 - 356 Celiac Interpretation See Comment 24 HIV 1/2 AB Evaluation 05/21/2017 HIV 1 2 Antibody Nonreactive Nonreactive 25 Laboratory test finding 04/25/2017 Rheumatoid Factor 89 IU/mL <15 26 Cyclic Citrullinated Pep Igg <15.6 U 27 CBC Auto Diff 04/25/2017 White Blood Count [...] Egfr Non- 100.2 >60 Egfr 128.9 >60 28 Grace Igg AB Reflex 04/25/2017 SS-A/Ro Antibody 0.3 U 29 SS-B/La Antibody <0.2 U 30 Sm (Little) IgG Antibody <0.2 U 31 U1-nRNP Antibody <0.2 U 32 Scl-70 (Scleroderma) Antibody <0.2 U 33 Dianne-1 Antibody <0.2 U 34 Hepatitis Acute Panel 04/25/2017 Hepatitis C Antibody Nonreactive Nonreactive Hepatitis A AB Igm Nonreactive Nonreactive Hepatitis B Core AB Igm Nonreactive Nonreactive Hepatitis B Surface Ag Nonreactive Nonreactive Laboratory test finding 04/25/2017 Vitamin D, 1,25 Dihydroxy 45 pg/mL 18- 78 35 Complement C3 121 mg/dL 75 - 175 36 Complement C4 26 mg/dL 14 - 40 37 Anti Double Stranded Dna AB <12.3 IU/mL 38 Hla B27 04/25/2017 Hla B27 Positive 39 Hla B27 Interp See Comment 40 Salicylate Stat 01/13/2008 Salicylate < 4.0 mg/dL Less Than 30 41 Alcohol Stat 01/13/2008 Alcohol < 10.0 mg/dL None Detected 42 Acetaminophen Stat 01/13/2008 Acetaminophen < 10 g/mL Low 10-30 43 Basic Metabolic Panel Stat 01/13/2008 Sodium 136 mmol/L 135-145 Potassium 3.4 mmol/L Low 3.5-5.0 Chloride 111 mmol/L 101-111 Co2 (Carbon Dioxide) 21.0 mmol/L Low 22-32 Anion Gap 4.0 mmol/L 2-11 44 Glucose 128 mg/dL High 70-100 45 BUN 13 mg/dL 6-24 Creatinine 1.1 mg/dL 0.5-1.4 One Over Creatinine 0.90 BUN/Creatinine Ratio 11.8 8-20 Calcium 8.4 mg/dL 8.1-9.9 46 DS3 01/13/2008 Amphetamines Urine Screen NONE DETECTED None Detect Barbituates Urine Screen NONE DETECTED None Detect Benzodiazepine Ur Screen NONE DETECTED None Detect Cannabinoid Urine Screen NONE DETECTED None Detect Cocaine Metabolites Urine NONE DETECTED None Detect Opiates Urine Screen POSITIVE None Detect PCP Urine Screen NONE DETECTED None Detect 47 HCG Qualitative Stat 01/13/2008 Serum Qual HCG NEGATIVE Negative 48 CBC With Electronic Diff Stat 01/13/2008 White [...] Eosinophils 0.1 0-0.6 Abs Basophils 0.1 0-0.2 P33S 01/04/2008 Sodium 139 mmol/L 135-145 Potassium 3.9 mmol/L 3.5-5.0 Chloride 112 mmol/L High 101-111 Co2 (Carbon Dioxide) 18.0 mmol/L Low 22-32 Anion Gap 9.0 mmol/L 2-11 49 Glucose 126 mg/dL High 70-100 50 BUN 15 mg/dL 6-24 Creatinine 1.0 mg/dL 0.5-1.4 One Over Creatinine 1.00 BUN/Creatinine Ratio 15.0 8-20 Calcium 9.1 mg/dL 8.1-9.9 51 Total Protein 7.1 GM/DL 6.2-8.1 Albumin 4.0 GM/DL 3.6-5.4 Globulin 3.1 GM/DL 2-4 Albumin/Globulin Ratio 1.3 1-3 Bilirubin Total 0.8 mg/dL 0.4-1.5 Alkaline Phosphatase 85 U/L 30-110 Alt (SGPT) 14 U/L 14-54 Ast (Sgot) 19 U/L 12-42 Amylase Stat 01/04/2008 Amylase 79 U/L 30-125 Laboratory test finding 01/04/2008 Lipase 33 U/L 22-51 Urine Culture & Sensitivi 01/04/2008 Urine Culture Sensitivi NF1 52 CBC With Electronic Diff 01/04/2008 White Blood [...] Eosinophils 0 0-0.6 Abs Basophils 0 0-0.2 53 Laboratory test finding 01/04/2008 (HCG) Serum NEGATIVE Negative 54 Urinalysis W/Microscopic 01/04/2008 Ua Color YELLOW Stat Appearance-Urine HAZY Specific Temple-Ur 1.015 1.010-1.030 Esterase-Urine TRACE Negative Nitrite NEGATIVE Negative Xzfgpxizgwrx-Vs-WWP NEGATIVE Negative Protein-Urine NEGATIVE Negative PH-Urine 5.0 5-9 Blood-Urine TRACE Negative Ketones-Urine NEGATIVE Negative Bilirubin-Ur NEGATIVE Negative Glucose-Urine NEGATIVE Negative WBC-Urine 2-8 0-5 RBC-Urine 0-2 0-2 Mucus Urine TRACE Epith Cells-Ur FILLED Bacteria-Urine 2+ DS3 07/16/2007 Amphetamines Urine Screen NONE DETECTED None Detect Benzodiazepine Ur Screen NONE DETECTED None Detect Cocaine Metabolites Urine NONE DETECTED None Detect Opiates Urine Screen POSITIVE None Detect PCP Urine Screen NONE DETECTED None Detect 55 Cannabinoid Urine Screen NONE DETECTED None Detect [...] 07/16/2007 Alcohol < 10.0 mg/dL None Detected 56 Basic Metabolic Panel 07/16/2007 One Over Creatinine 1.00 Stat Anion Gap 5.0 mmol/L 2-11 57 BUN 18 mg/dL 6-24 Calcium 9.0 mg/dL 8.7-10.2 Chloride 107 mmol/L 101-111 Co2 (Carbon Dioxide) 23.0 mmol/L 22-32 Glucose 122 mg/dL High 70-105 Potassium 3.8 mmol/L 3.5-5.0 Sodium 135 mmol/L 135-145 BUN/Creatinine Ratio 18.0 8-20 Creatinine 1.0 mg/dL 0.5-1.4 Rapid Strep A 07/14/2007 Rapid Strep A The manufacturing technologist <SEE 58 NOTE> Laboratory test 07/14/2007 Throat-Beta Strep NGNBS 59 finding Culture Laboratory test 07/07/2007 Throat Culture FEW [STAPHYLOCOC <SEE 60 finding Full NOTE> CBC With Electronic 06/11/2007 White Blood [...] Creatinine 1.25 Anion Gap 6.0 mmol/L 2-11 61 Albumin/Globulin Ratio 1.2 1-3 Albumin 3.6 GM/DL [...] Stat 06/11/2007 Serum Qual HCG NEGATIVE Negative 62 Laboratory test 06/02/2007 Urine Culture SCANT NORMAL URE 63 finding Sensitivi <SEE NOTE> Urinalysis 06/01/2007 Ua Color YELLOW W/Microscopic Stat Amorphous Sed-U TRACE Appearance-Urine CLEAR Bacteria-Urine TRACE Bilirubin-Ur NEGATIVE Negative Blood-Urine TRACE Negative Epith Cells-Ur FEW Esterase-Urine TRACE Negative Glucose-Urine NEGATIVE Negative Ketones-Urine NEGATIVE Negative Mucus Urine MODERATE Nitrite NEGATIVE Negative PH-Urine 5.0 5-9 Protein-Urine NEGATIVE Negative RBC-Urine 0-2 0-2 Lxxtydvjepez-Bo-JQM NEGATIVE Negative Specific Temple-Ur 1.016 1.010-1.030 WBC-Urine 3-5 0-5 Laboratory test 06/01/2007 Stool Specimen M^MUCOID^STCON 64 finding Description Stool For Blood 06/01/2007 Stool [...] Creatinine 1.00 Anion Gap 7.0 mmol/L 2-11 65 Albumin/Globulin Ratio 1.1 1-3 Albumin 3.9 GM/DL [...] C. Difficile Toxin A A positive test < SEE 66 B NOTE> Shiga Toxin 1 And 2 (Ehec) N^NEGATIVE BY IM <SEE NOTE> 67 Campylobacter NO GROWTH OF CAM <SEE NOTE> 68 Stool Cult Sensitivity NEGATIVE FOR THE <SEE NOTE> 69 P33S 03/13/2007 One Over Creatinine 1.00 Anion Gap 4.0 mmol/L 2-11 70 Albumin/Globulin Ratio 1.1 1-3 Albumin 3.6 GM/DL [...] 03/10/2007 White Blood Count 6.8 CUMM 4.8-10.8 71 Abs Basophils 0 0-0.2 71 Abs Eosinophils 0.1 0-0.6 71 Absolute Neutrophil Count 4.8 1.5-7.7 71 Abs Lymphs 1.5 1.0-4.8 71 Abs Mononuclear 0.4 0-0.8 71 Basophil % 0.4 % 0-2 71 Hematocrit 38 % 35-47 71 Hemoglobin 12.9 g/dL 12.0-16.0 71 Eosinophil % 1.4 % 0-6 71 Gran % 70.6 % 38-83 71 Lymph % 21.8 % 20-45 71 Mean Corpuscular HGB Cone 34 g/dL 32-36 71 Mean Corpuscular Hemoglob 28 pg 27-31 71 Mean Corpuscular Volume 84 um3 79-97 71 Mean Platelet Volume 9.3 um3 7.4-10.4 71 Mononuclear % 5.8 % 1-9 71 Platelet Count 242 CUMM 150-450 71 Red Cell Count 4.59 CUMM 4.2-5.4 71 Redcell Distribution WDTH 14 % 10.5-15 71 Laboratory test finding 03/10/2007 GGTP 27 U/L 7-50 71 Magnesium 1.9 mg/dL 1.7-2.6 71 Comp Metabolic Panel 03/10/2007 One Over Creatinine 1.11 71 Anion Gap 8.0 mmol/L 2-11 71, 72 Albumin/Globulin Ratio 1.1 1-3 71 Albumin 3.8 GM/DL 3.6-5.4 71 Alkaline Phosphatase 79 U/L 30-110 71 Alt (SGPT) 15 U/L 14-54 71 Ast (Sgot) 18 U/L 12-42 71 BUN 21 mg/dL 6-24 71 Calcium 9.1 mg/dL 8.7-10.2 71 Chloride 105 mmol/L 101-111 71 Co2 (Carbon Dioxide) 23.0 mmol/L 22-32 71 Globulin 3.4 GM/DL 2-4 71 Glucose 86 mg/dL 70-105 71 Potassium 4.2 mmol/L 3.5-5.0 71 Sodium 136 mmol/L 135-145 71 Bilirubin Total 0.9 mg/dL 0.4-1.5 71 Total Protein 7.2 GM/DL 6.2-8.1 71 BUN/Creatinine Ratio 23.3 High 8-20 71 Creatinine 0.9 mg/dL 0.5-1.4 71 Basic Metabolic Panel Stat 02/26/2007 One Over Creatinine 1.11 Anion Gap 5.0 mmol/L 2-11 73 BUN 16 mg/dL 6-24 Calcium 8.8 mg/dL [...] Creatinine 0.90 Anion Gap 10.0 mmol/L 2-11 74 Albumin/Globulin Ratio 1.0 1-3 Albumin 3.8 GM/DL [...] Stat 02/05/2007 Serum Qual HCG NEGATIVE Negative 75 Arterial Blood Gas Stat 02/05/2007 Base Excess -5.1 Low -2.0-2.0 Device ROOM AIR Bicarbonate 18.6 mmol/L Low 19-31 O2 Saturation 99 % High 95-98 Pco2 30 mmHg Low 35-45 PH 7.40 7.35-7.45 Po2 116 mmHg High 80-100 Laboratory test finding 02/05/2007 Nortriptyline (Pamelor) 140 NG/ML 50.0 -150.0 76 Basic Metabolic Panel 01/15/2007 One Over Creatinine 1.00 Stat Anion Gap 8.0 mmol/L 2-11 77 BUN 20 mg/dL 6-24 Calcium 8.7 mg/dL [...] Creatinine 0.90 Anion Gap 6.0 mmol/L 2-11 78 Albumin/Globulin Ratio 1.4 1-3 Albumin 3.9 GM/DL [...] Creatinine 0.90 Anion Gap 6.0 mmol/L 2-11 79 BUN 18 mg/dL 6-24 Calcium 9.1 mg/dL [...] Redcell Distribution WDTH 14 % 10.5-15 1 Acute inflammation: >10.00 2 Because ethnic data is not always readily [...] 15-29 5 Kidney failure <15 (or dialysis) 3 *Ascorbic acid is present which may interfere with detection of blood. 4 Procedure Result Units Ref Interval Amphetamines, S/P, screen Negative ng/mL Cutoff 30 Methamphetamine, S/P, screen Negative ng/mL Cutoff 30 Barbiturates, S/P, screen Negative ng/mL Cutoff 75 Benzodiazepines, S/P, screen Negative ng/mL Cutoff 75 Buprenorphine, S/P, screen Negative ng/mL Cutoff 1 Cannabinoids, S/P, screen Positive ng/mL Cutoff 30 Cocaine, S/P, Screen Negative ng/mL Cutoff 30 Methadone, S/P, screen Negative ng/mL Cutoff 40 Opiates, S/P, screen Negative ng/mL Cutoff 30 Oxycodone, S/P, screen Negative ng/mL Cutoff 30 Phencyclidine, S/P, Screen Negative ng/mL Cutoff 15 THC Metabolite, Serum or Plasma, Quantitative 40-Esn-2-carboxy-THC, S/P, Quant 10 ng/Ml INTERPRETIVE INFORMATION: THC Metabolite, Serum or Plasma, Quantitative Methodology: Quantitative Liquid Chromatography-Tandem Mass Spectrometry. Positive cutoff: 5 ng/mL For medical purposes only; not valid for forensic use. The drug analyte detected in this assay, 9-carboxy THC, is a metabolite of tdvtn-0-eahjlnddeqzirazzmguo (THC). Detection of 9-carboxy THC suggests use of, or exposure to, a product containing THC. This test cannot distinguish between prescribed or non-prescribed forms of THC, nor can it distinguish between active or passive use. The plasma half-life for 9-carboxy THC metabolite is estimated to range from 4-12 hours. Test developed and characteristics determined by [employer]. See Compliance Statement B: [employer] Drug Screen Comments, Serum or Plasma See Note Drug Screen Comments, Serum or Plasma: INTERPRETIVE INFORMATION: Drug Screen 9 Panel, Serum or Plasma - Immunoassay Screen with Reflex to Mass Spectrometry Confirmation/Quantitation 1. Methodology: Qualitative Immunoassay Screen 2. Drugs/Drug classes reported as "Positive" are automatically reflexed to mass spectrometry confirmation/quantitation testing. An immuncassay unconfirmed positive screen result may be useful for medical purposes but does not meet forensic standards. 3. The absence of expected drug(s) and/or drug metabolite(s) may indicate non-compliance, inappropriate timing of specimen collection relative to drug administration, poor drug absorption, or limitations of testing. The concentration at which the screening test can detect a drug or metabolite varies within a drug class. Specimens for which drugs or drug classes are detected by the screen are automatically reflexed to a second, more specific technology (mass spectrometry). The concentration value must be greater than or equal to the cutoff to be reported as positive. Interpretive questions should be directed to the laboratory. 4. For medical purposes only; not valid for forensic use. Test developed and characteristics determined by [employer]. See Compliance Statement B: [employer] Test Performed by: [employer] [facility] [address] [place] [address] [email or web address] Edwardo Abdalla MD - Director of Laboratories 5 Test Performed by: [address] [id number] 6 Test Performed by: [facility] - [address] [id number] 7 Test Performed by: [facility] - [address] [id number] 8 Procedure Result Units Ref Interval Amphetamines, S/P, screen Negative ng/mL Cutoff 30 Methamphetamine, S/P, screen Negative ng/mL Cutoff 30 Barbiturates, S/P, screen Negative ng/mL Cutoff 75 Benzodiazepines, S/P, screen Negative ng/mL Cutoff 75 Buprenorphine, S/P, screen Negative ng/mL Cutoff 1 Cannabinoids, S/P, screen Positive ng/mL Cutoff 30 Cocaine, S/P, Screen Negative ng/mL Cutoff 30 Methadone, S/P, screen Negative ng/mL Cutoff 40 Opiates, S/P, screen Negative ng/mL Cutoff 30 Oxycodone, S/P, screen Negative ng/mL Cutoff 30 Phencyclidine, S/P, Screen Negative ng/mL Cutoff 15 83-Njl-6-carboxy-THC, S/P, Quant 61 ng/mL INTERPRETIVE INFORMATION: THC Metabolites, Serum or Plasma, Quantitative Methodology: Quantitative Liquid Chromatography-Tandem Mass Spectrometry Positive cutoff: 5 ng/mL For medical purposes only; not valid for forensic use. The drug analyte detected in this assay, 9-carboxy THC, is a metabolite of crgdo-4-mcydnpzbvimwjwyfdqgs (THC). Detection of 9-carboxy THC suggests use of, or exposure to, a product containing THC. This test cannot distinguish between prescribed or non-prescribed forms of THC, nor can it distinguish between active or passive use. The plasma half-life for 9-carboxy THC metabolite is estimated to range from 4-12 hours. Test developed and characteristics determined by [employer]. See Compliance Statement B: [employer] Norbuprenorphine, S/P, Quant ng/mL Test Performed by: [employer] [facility] [address] [place] [id number] Faustino Saucedo MD Director of Laboratories Drug Screen Comments, Serum or Plasma See Note Drug Screen Comments, Serum or Plasma: INTERPRETIVE INFORMATION: Drug Screen 9 Panel, Serum or Plasma - Immunoassay Screen with Reflex to Mass Spectrometry Confirmation/Quantitation 1. Methodology: Qualitative Immunoassay Screen 2. Drugs/Drug classes reported as "Positive" are automatically reflexed to mass spectrometry confirmation/quantitation testing. An immuncassay unconfirmed positive screen result may be useful for medical purposes but does not meet forensic standards. 3. The absence of expected drug(s) and/or drug metabolite(s) may indicate non-compliance, inappropriate timing of specimen collection relative to drug administration, poor drug absorption, or limitations of testing. The concentration at which the screening test can detect a drug or metabolite varies within a drug class. Specimens for which drugs or drug classes are detected by the screen are automatically reflexed to a second, more specific technology (mass spectrometry). The concentration value must be greater than or equal to the cutoff to be reported as positive. Interpretive questions should be directed to the laboratory. 4. For medical purposes only; not valid for forensic use. Test developed and characteristics determined by [employer]. See Compliance Statement B: [employer]/CS Test Performed by: [employer] [address] [place] [id number] [email or web address] Edwardo Abdalla MD - Director of Laboratories 9 SEE RESULT BELOW Name: ANTONIETTA RADER : [address]: Sean Cruz MD Acct: [id number] Unit: [id number] AGE: 37 Location: LAB Re08/06/17 SEX: F Status: REG REF SPEC: [id number] MARCIE: 08/06/17-[address] [facility] [address]: Sean Cruz MD REQ: [id number] RECD: 08/06/17 STATUS: COMP _ SOURCE: URINE [facility]: ORDERED: Urine Culture Procedure Result Reported Site Urine Culture Final 08/07/17- 1303 ML No growth of clinically significant organisms * ML - Main Lab . END OF REPORT DEPARTMENT OF PATHOLOGY, [address] [place] [address] Porfirio Burden M.D. Director [facility] # [id number] 10 *Ascorbic acid is present which may interfere with detection of blood. 11 Because ethnic data is not always [...] 5 Kidney failure <15 (or dialysis) 12 Negative for cANCA and pANCA patterns by immunofluorescence. ADDITIONAL INFORMATION This test was developed and its performance characteristics determined by [facility] in a manner consistent with CLIA requirements. This test has not been cleared or approved by the U.S. Food and Drug Administration. Test Performed by: [facility] - [address] [address] 13 Acute inflammation: >10.00 14 *Ascorbic acid is present which may interfere with detection of blood. 15 Acute inflammation: >10.00 16 No interferon-gamma response to M. tuberculosis antigens was detected. Infection with M. tuberculosis is unlikely. A negative result alone does not exclude infection with M. tuberculosis. For detailed information regarding test interpretation see: [email or web address]/test-[email or web address]/ Clinical+[email or web address]+[email or web address] 17 Test Performed by: [facility] - [facility] [address] [place] [address] 18 REFERENCE VALUE 5.0-15.0 (Trough) ADDITIONAL INFORMATION Target steady-state trough concentrations vary depending on the type of transplant, concomitant immunosuppression, clinical/institutional protocols, and time post-transplant. Results should be interpreted in conjunction with this clinical information and any physical signs/symptoms of rejection/toxicity. Testing performed by Liquid Chromatography-Tandem Mass Spectrometry (LC-MS/MS). This test was developed and its performance characteristics determined by [facility] in a manner consistent with CLIA requirements. This test has not been cleared or approved by the U.S. Food and Drug Administration. Test Performed by: [facility] - [facility] [address] [place] [address] 19 Because ethnic data is not always readily [...] 15-29 5 Kidney failure <15 (or dialysis) 20 RESULT: 02:01,05 REFERENCE VALUE Not Applicable 21 RESULT: 03:01,03:03 DQ Serologic Equivalent: 7,9 REFERENCE VALUE Not Applicable 22 The absence of HLA celiac permissive genes would make the presence of celiac disease unlikely. ADDITIONAL INFORMATION Method: Molecular typing of HLA antigens performed using reverse SSOP and/or SSP methods, reported as serological equivalents and low to medium resolution molecular values. Performing Laboratory CLIA# [id number] Test Performed by: [facility] - [facility] [address] [place] [address] 23 REFERENCE VALUE <4.0 (Negative) Test Performed by: [address] [address] 24 Negative serology. Celiac disease unlikely. However, approximately 10% of patients with celiac disease are seronegative. Also, patients who are already adhering to a gluten-free diet may be seronegative. If celiac disease is highly clinically suspected, consider HLA-DQ typing. Test Performed by: [address] [address] 25 It is recognized that currently available assays [...] 95% confidence interval of 99.78 to 99.96%. 26 Test Performed by: [address] [address] 27 REFERENCE VALUE <20.0 (Negative) Test Performed by: [address] [address] 28 Because ethnic data is not always readily [...] 15-29 5 Kidney failure <15 (or dialysis) 29 REFERENCE VALUE <1.0 (Negative) 30 REFERENCE VALUE <1.0 (Negative) 31 REFERENCE VALUE <1.0 (Negative) 32 REFERENCE VALUE <1.0 (Negative) 33 REFERENCE VALUE <1.0 (Negative) 34 REFERENCE VALUE <1.0 (Negative) Test Performed by: [facility] - [address] [address] 35 ADDITIONAL INFORMATION This test was developed and its performance characteristics determined by [facility] in a manner consistent with CLIA requirements. This test has not been cleared or approved by the U.S. Food and Drug Administration. Test Performed by: [facility] - [address] [place] [address] 36 Test Performed by: [facility] - [address] [address] 37 Test Performed by: [facility] - [address] [address] 38 REFERENCE VALUE <30.0 (Negative) Test Performed by: [facility] - [address] [address] 39 REFERENCE VALUE Not Applicable 40 HLA-B27 antigen was detected. Approximately 8% of [...] INFORMATION Method: Flow Cytometry Performing Laboratory CLIA# [id number] Test Performed by: [address] [address] 41 The detection limit for SALICYLATE is 4.0 mg/dl. Values less than 4.0 mg/dl cannot be accurately measured. . 42 The detection limit for ETHANOL is 10.0 mg/dl . Values less than 10.0 mg/dl cannot be accurately measured. . 43 TOXIC LEVELS: GREATER THAN 150 MCG/ML @ 4HR POST INGEST GREATER THAN 50 MCG/ML @ 12HR POST INGEST The detection limit for ACETAMINOPHEN is 10.0 mcg/ml . Values less than 10.0 mcg/ml cannot be accurately measured. . 44 Anion gap measurement may be of limited value in the presence of any alkalosis, especially in a combined acid base disorder. . 45 Note change in reference range as of 12/10/07. The change was based on recommendations from the [employer]. 46 Please note change in reference range effective 07 . 47 THE URINE SPECIMEN WAS TESTED AT THE LISTED CUTOFFS: DRUG CLASS TEST LEVEL (NG/ML) AMPHETAMINES 300 BARBITUATES 200 BENZODIAZEPINE METABOLITES 200 COCAINE METABOLITES 300 CANNABINOIDS 25 OPIATES 200 PCP 25 THIS IS A SCREENING PROCEDURE. POSITIVE RESULTS ARE NOT CONFIRMED. SPECIMEN WAS RECEIVED WITHOUT CHAIN OF CUSTODY. RESULTS SHOULD BE USED FOR MEDICAL PURPOSES ONLY. . 48 If is still suspected, please repeat test after 48 to 72 hours. . 49 Anion gap measurement may be of limited value in the presence of any alkalosis, especially in a combined acid base disorder. . 50 Note change in reference range as of 12/10/07. The change was based on recommendations from the [employer]. 51 Please note change in reference range effective 07 . 52 SPECIMEN CONTAINS NORMAL URETHRAL OR PERINEAL FADI AND DOES NOT SUGGEST URINARY TRACT INFECTION 53 Lymphopenia % 54 If is still suspected, please repeat test after 48 to 72 hours. . 55 THE URINE SPECIMEN WAS TESTED AT THE LISTED CUTOFFS: DRUG CLASS TEST LEVEL (NG/ML) AMPHETAMINES 300 BARBITUATES 200 BENZODIAZEPINE METABOLITES 200 COCAINE METABOLITES 300 CANNABINOIDS 25 OPIATES 200 PCP 25 THIS IS A SCREENING PROCEDURE. POSITIVE RESULTS ARE NOT CONFIRMED. SPECIMEN WAS RECEIVED WITHOUT CHAIN OF CUSTODY. RESULTS SHOULD BE USED FOR MEDICAL PURPOSES ONLY. . 56 The detection limit for ETHANOL is 10.0 mg/dl . Values less than 10.0 mg/dl cannot be accurately measured. . 57 Anion gap measurement may be of limited value in the presence of any alkalosis, especially in a combined acid base disorder. . 58 The manufacturing technologist and regulatory agencies both recommend that a throat culture for beta strep be performed if a Rapid Group A Strep assay yields a negative result. Therefore a culture will be automatically performed on all negative samples. N^NEGATIVE FOR GROUP A STREP BY ENZYME IMMUNOASSAY^STREPA 59 NEGATIVE FOR GROUP A STREP 60 FEW [STAPHYLOCOCCUS AUREUS] WITH SCANT NORMAL THROAT FADI STAPHYLOCOCCUS AUREUS 61 Anion gap measurement may be of limited value in the presence of any alkalosis, especially in a combined acid base disorder. . 62 If is still suspected, please repeat test after 48 to 72 hours. . 63 SCANT NORMAL URETHRAL OR PERINEAL FADI 10^1-10,000 ORGANISMS/ML (FEW)^CCU 64 SF^SEMI-FORMED^STFORM 65 Anion gap measurement may be of limited value in the presence of any alkalosis, especially in a combined acid base disorder. . 66 A positive test confirms the presence of [...] in cystic fibrosis patients. N^NEGATIVE BY IMMUNOASSAY^CDT 67 N^NEGATIVE BY IMMUNOCHROMATOGRAPHIC ASSAY^ST1 N^NEGATIVE BY IMMUNOCHROMATOGRAPHIC ASSAY^ST2 68 NO GROWTH OF CAMPYLOBACTER AFTER 48 HOURS 69 NEGATIVE FOR THE ENTERIC PATHOGENS - SALMONELLA, SHIGELLA, AND YERSINIA VIBRIO AND E. COLI 0157 NOT ROUTINELY TESTED FOR IN A STOOL CULTURE. PLEASE SUBMIT SAMPLE WITH SPECIFIC REQUEST FOR DESIRED ORGANISM(S). 70 Anion gap measurement may be of limited value in the presence of any alkalosis, especially in a combined acid base disorder. . 71 Fax results to Jaden Miller NP 72 Anion gap measurement may be of limited value in the presence of any alkalosis, especially in a combined acid base disorder. . 73 Anion gap measurement may be of limited value in the presence of any alkalosis, especially in a combined acid base disorder. . 74 Anion gap measurement may be of limited value in the presence of any alkalosis, especially in a combined acid base disorder. . 75 If is still suspected, please repeat test after 48 to 72 hours. . 76 THE PERFORMANCE CHARACTERISTICS OF THIS TEST WERE ESTABLISHED THROUGH VALIDATION BY [employer], AND NO APPROVAL IS REQUIRED BY THE U.S. FOOD AND DRUG ADMINISTRATION (FDA). [employer] IS REGULATED UNDER THE CLINICAL LABORATORY IMPROVEMENT AMENDMENTS OF 1988 ( CLIA ) QUALIFIED TO PERFORM HIGH COMPLEXITY CLINICAL TESTING. TEST PERFORMED BY: [employer] [address] [place] [address] 77 Anion gap measurement may be of limited value in the presence of any alkalosis, especially in a combined acid base disorder. . 78 Anion gap measurement may be of limited value in the presence of any alkalosis, especially in a combined acid base disorder. . 79 Anion gap measurement may be of limited value in the presence of any alkalosis, especially in a combined acid base disorder. . Procedures Date CPT Code Description Status 05/30/2017 00642 Admin Of Inj Completed 05/21/2017 22250 Inject/Drain Joint/Bursa Small W/O US Completed 12/03/2016 19068 Anoscopy Completed 08/27/201677001 Aspiration &/Or Inj Of Ganglion Cyst(S) Any Location Completed Encounters Type Date Location Provider CPT E/M Dx Office Visit 12/09/2017 [facility] Sean Cruz M.D. 00683 M06.9 3:20p Of [place] Z79.899 M51.36 M54.2 R00.0 Office Visit 09/29/2017 9:40a [facility] Sean Cruz 42336 M05.79 Of [place] White79.899 R31.9 M51.36 B37.0 Z23 Office Visit 09/01/2017 9:53a [facility] Asstyler,donte Garay, [address] R07.9 Hospitaljorden Yanez L25.9 M06.9 Z94.4 Office Visit 08/31/2017 9:52a [facility] [place], [address] R07.9 Assoc,pc SERVICE ORDER TAKER Hospitalists L25.9 M06.9 Z94.4 Office Visit 08/06/2017 10:00a [facility] Sean Cruz [address]178 M05.79 Of [place] Yanez Z79.899 R31.9 M54.6 J01.90 L30.9 Office Visit 06/29/2017 2:50p [facility] Asstyler,[place] [address] R51 Hospitalists R50.9 R11.11 Z94.4 Office Visit 06/28/2017 2:49p [facility] [place] [address] R51 Hospitalists R50.9 R11.11 Z94.4 Office Visit 06/27/2017 2:46p [facility] [place], [address] R51 Assoc,pc SERVICE ORDER TAKER Hospitalists R50.9 R11.11 Z94.4 Office Visit 06/26/2017 2:45p [facility] Valdivia,donte Mock, [address] R50.9 Hospitalists SERVICE ORDER TAKER R11.11 R51 Z94.4 Office Visit 06/18/2017 8:20a [facility] Sean Cruz, [address] M05.79 Of Page Designer M.D. Z79.899 M54.2 B37.0 R31.9 Office Visit 05/30/2017 1:30p [facility] Sean Cruz, [address] M05.79 Of Page Designer M.D. Z79.899 M25.541 M25.542 M79.674 M54.2 M54.6 M54.5 Office Visit 05/19/2017 4:40p [facility] Sean Cruz, [address] M05.79 Of Page Designer M.D. Z79.899 M25.571 M54.2 L30.9 Office Visit 04/25/2017 1:00p [facility] Sean Cruz, [address] R76.0 Page Designer M.D. R05 M05.79 L30.9 Office Visit 12/03/2016 10:00a [facility], [address] K60.2 Page Designer M.D. Office Visit 08/27/2016 1:15p [facility] [place] [address] M67.442 C.M.A. Office Visit 10/19/2007 2:00p DO Not Use Page Designer AT [facility], [address] 346.00 Thu Yanez,FACP 296.33 Office Visit 08/17/2007 3:40p DO Not Use Page Designer AT [facility] [address] V72.84 Thu Yanez,FACP 474.9 724.2 346.00 Office Visit 07/07/2007 11:00a [facility] Not Use [facility] [address] 751.61 Thu Yanez,FACP V42.7 346.00 311 474.9 Office Visit 06/01/2007 2:40p DO Not Use Page [facility] [address] 789.06 Thu Yanez,FACP V42.7 296.33 112.0 Office Visit 03/19/2007 9:20a DO Not Use Page [facility]er [facility] [address] 535.40 Thu Yanez,[facility] V42.7 311 041.11 346.00 Plan of Care Future Appointment(s):01/08/2018 3:00 pm - Nash Moncada M.D. at [facility]03/11/2018 3:20 pm - Saen Cruz M.D. at [facility]12/09/2017 - Sean Cruz M.D.M06.9 Rheumatoid arthritis, mpnqwoczxmdQ67.899 Other senior care (current) drug xfzfdweM43.36 Other intervertebral disc degeneration, lumbar cgtvfnI99.2 RcyclaziyjeD88.0 Tachycardia, unspecifiedReferral:Meron Diamond MD, Cardiovsclr DiseaseFollow up :Follow up in 2-3 months or sooner if needed
--- OUTSIDE RECORDS SUMMARY | 2017-12-23 13:21 | XMS REPORT ---
:1980 External Reference #:[id number] Author Organization [employer] Address [address] [facility] [address] [facility] [place] [address] [place] [address] Phone [phone] Care Team Providers Name Role Phone Neil Bernard MD Primary Care Physician Unavailable Payers Type Date Identification Numbers Payment Provider Subscriber Commercial Effective: Policy Number: [id number] [employer] Antonietta Rader 2007 Medicaid PayID: [id number] [address] [address] [place] [address] Problems Date Description Provider Status Onset: 03/19/2007 Transplantation of liver Mirella Catalan M.D.,FACP Onset: 03/19/2007 Depressive disorder Mirella Catalan M.D.,FACP Onset: 03/19/2007 Staphylococcus aureus Mirella Catalan M.D.,FACP Onset: 03/19/2007 Gastritis Mirella Catalan M.D.,FACP Onset: 03/19/2007 Migraine with typical aura iMrella Catalan M.D.,FACP Onset: 06/01/2007 Severe recurrent major [...] Description Comments Marital Status 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 eight hours as needed for pain Clonazepam / Active Tablets 2mg 1 by Unknown 0000 mouth three times a day Benadryl Allergy 00/00/ Active Tablets 25mg 1-2 tabs Unknown 0000 [...] 50mg 60tab 1 po bid Meño 2007 Jan s Mitch Markham, .D.,FACP 2017 Lomotil 10/05/ Hx Tablets 2.5mg 40tab 1 tab qid Meño 2007 - s prn DLinda Markham, M.D.,FACP 2008 Remeron 08/16/ Hx Tablets 30mg 30tab 1 Tabs 296.33 Meño 2007 - s PO Q hs DLinda Markham, .D.,FACP 2017 Cipro 07/08/ Hx Tablets 500mg 14tab 1 PO bid Meño 2007 - s x 7days D. Shahrzad, M.D.,FACP 2008 Frova 07/06/ Hx Tablets 2.5mg 12tab q2h [...] 150cc 5 cc q 8 466.0 Iram osborn 2008 - hours prn Mitch Markham, 06/01/ cough M.D.,FACP 2008 Prograf 03/19/ Hx Capsules 1mg 3 PO bid Meño Markham, .D.,FACP 2017 Cellcept 03/19/ Hx Tablets 500mg 1 bid Meño Markham, .D.,FACP 2017 Omeprazole 03/19/ Hx Capsules DR 20mg 30cap qd PO Meño Markham, .D.,FACP 2008 Topamax 03/19/ Hx Tablets 25mg 120ta 2 Tabs Meño Mcmahon - bs bid Mitch Markham, .D.,FACP 2008 Frova 03/19/ Hx Tablets 2.5mg 18tab Q2H prn Meño Montoya s MDD2 Mitch Markham, .D.,FACP 2008 Fluoxetine HCL 03/19/ Hx Capsules 20mg 30cap PO qd Meño Markham, 02/07/ M.D.,FACP 2008 Promethazine HCL 03/19/ Hx Tablets 25mg 1 qhs prn Meño Markham, .D.,FACP 2007 Prilosec 03/19/ Hx Capsules DR 20mg 30cap 1 po qd 535.40 Meño Markham, M.D.,FACP 2017 Reglan 03/19/ Hx Tablets 5mg 30tab [...] Provider Triamcinolone 05/30/ Administered Injection Sean (Kenalog) Minda Cruz M.D. Triamcinolone 05/21/ Administered Injection Sean Washburnalog) Minda Cruz M.D. No Injection 08/27/ Administered Injection Gordo Schmidt MD Immunizations CPT Code Status Date Vaccine Reaction Lot # [id number] Given 09/29/2017 Pneumococcal Conjugate no immediate reaction [id number] Vaccine 13 Valent For noted Intramuscular Use [...] Color Yellow Urine Appearance Cloudy Urine Specific Spraggs 1.024 1.010-1.030 Urine pH 5.0 5-9 Urine [...] Color Yellow Urine Appearance Cloudy Urine Specific Spraggs 1.009 Low 1.010-1.030 Urine pH 5.0 5-9 [...] Color Yellow Urine Appearance Clear Urine Specific Spraggs 1.010 1.010-1.030 Urine pH 5.0 5-9 Urine [...] Ua Color YELLOW Stat Appearance-Urine HAZY Specific Spraggs-Ur 1.015 1.010-1.030 Esterase-Urine TRACE Negative Nitrite NEGATIVE Negative Mkgnfnhphhuk-Dy-DWG NEGATIVE Negative Protein-Urine NEGATIVE Negative PH-Urine 5.0 [...] Strep A 07/14/2007 Rapid Strep A The tinter photograph <SEE 58 NOTE> Laboratory test 07/14/2007 Throat-Beta [...] 5-9 Protein-Urine NEGATIVE Negative RBC-Urine 0-2 0-2 Anbvbeyjaxbo-Rp-LUD NEGATIVE Negative Specific Spraggs-Ur 1.016 1.010-1.030 WBC-Urine 3-5 0-5 Laboratory test [...] 15 THC Metabolite, Serum or Plasma, Quantitative 98-Usc-9-carboxy-THC, S/P, Quant 10 ng/Ml INTERPRETIVE INFORMATION: THC Metabolite, Serum or Plasma, Quantitative Methodology: Quantitative Liquid Chromatography-Tandem Mass Spectrometry. Positive cutoff: 5 ng/mL For medical purposes only; not valid for forensic use. The drug analyte detected in this assay, 9-carboxy THC, is a metabolite of brxdj-3-rejwnjjqjurwijopbmgx (THC). Detection of 9-carboxy THC suggests use of, or exposure to, a product containing THC. This test cannot distinguish between prescribed or non-prescribed forms of THC, nor can it distinguish between active or passive use. The plasma half-life for 9-carboxy THC metabolite is estimated to range from 4-12 hours. Test developed and characteristics determined by [facility]. See Compliance Statement B: [employer] Drug Screen Comments, Serum or Plasma See [...] use. Test developed and characteristics determined by [facility]. See Compliance Statement B: [employer] Test Performed by: [facility] [address] [place] [address] [email or web address] Edwardo Abdalla MD - Director of Laboratories 5 Test Performed by: [address] [address] 6 Test Performed by: [facility] [address] [place] [address] 7 Test Performed by: [facility] [address] [place] [address] 8 Procedure Result Units Ref Interval Amphetamines, [...] Phencyclidine, S/P, Screen Negative ng/mL Cutoff 15 34-Iey-0-carboxy-THC, S/P, Quant 61 ng/mL INTERPRETIVE INFORMATION: THC Metabolites, Serum or Plasma, Quantitative Methodology: Quantitative Liquid Chromatography-Tandem Mass Spectrometry Positive cutoff: 5 ng/mL For medical purposes only; not valid for forensic use. The drug analyte detected in this assay, 9-carboxy THC, is a metabolite of phtwq-7-xrhspomhuyjwrobecnyr (THC). Detection of 9-carboxy THC suggests use of, or exposure to, a product containing THC. This test cannot distinguish between prescribed or non-prescribed forms of THC, nor can it distinguish between active or passive use. The plasma half-life for 9-carboxy THC metabolite is estimated to range from 4-12 hours. Test developed and characteristics determined by [facility]. See Compliance Statement B: [employer] Norbuprenorphine, S/P, Quant ng/mL Test Performed by: [facility] [address] [place] [address] Faustino Saucedo MD Director of Laboratories Drug [...] use. Test developed and characteristics determined by [facility]. See Compliance Statement B: [employer]/ Test Performed by: [facility] [address] [place] [id number] [email or web address] Edwardo Abdalla MD - Director of Laboratories 9 SEE RESULT BELOW Name: ANTONIETTA RADER : [address]: Sean Cruz MD Acct: [id number] Unit: [id number] AGE: 37 Location: LAB Re08/06/17 SEX: F Status: REG REF SPEC: [id number] MARCIE: 08/06/17-[address]: Sean Cruz MD REQ: [id number] RECD: 08/06/17 STATUS: COMP _ SOURCE: URINE SPDESC: ORDERED: Urine Culture Procedure Result Reported Site Urine Culture Final 08/07/17- 1303 ML No growth of clinically significant organisms * ML - Main Lab . END OF REPORT DEPARTMENT OF PATHOLOGY, [address] [place] [address] Porfirio Burden M.D. Director [facility] # [id number] 10 *Ascorbic acid is present which may [...] developed and its performance characteristics determined by [facility] in a manner consistent with CLIA requirements. This test has not been cleared or approved by the U.S. Food and Drug Administration. Test Performed by: [facility] - [address] [address] 13 Acute inflammation: >10.00 14 *Ascorbic acid is present which may interfere with detection of blood. 15 Acute inflammation: >10.00 16 No interferon-gamma response to M. tuberculosis antigens was detected. Infection with M. tuberculosis is unlikely. A negative result alone does not exclude infection with M. tuberculosis. For detailed information regarding test interpretation see: [email or web address]-catalog/ Clinical+[email or web address] 17 Test Performed by: [facility] [employer] [facility] [address] [place] [address] 18 REFERENCE VALUE 5.0-15.0 (Trough) ADDITIONAL INFORMATION Target steady-state trough concentrations vary depending on the type of transplant, concomitant immunosuppression, clinical/institutional protocols, and time post-transplant. Results should be interpreted in conjunction with this clinical information and any physical signs/symptoms of rejection/toxicity. Testing performed by Liquid Chromatography-Tandem Mass Spectrometry (LC-MS/MS). This test was developed and its performance characteristics determined by [facility] in a manner consistent with CLIA requirements. This test has not been cleared or approved by the U.S. Food and Drug Administration. Test Performed by: [facility] [employer] [facility] [address] [place] [address] 19 Because ethnic data is not always [...] medium resolution molecular values. Performing Laboratory CLIA# [id number] Test Performed by: [facility] [employer] [facility] [address] [place] [address] 23 REFERENCE VALUE <4.0 (Negative) Test Performed by: [address] [address] 24 Negative serology. Celiac disease unlikely. However, approximately 10% of patients with celiac disease are seronegative. Also, patients who are already adhering to a gluten-free diet may be seronegative. If celiac disease is highly clinically suspected, consider HLA-DQ typing. Test Performed by: [address] [address] 25 It is recognized that currently available [...] 99.78 to 99.96%. 26 Test Performed by: [address] [address] 27 REFERENCE VALUE <20.0 (Negative) Test Performed by: [address] [address] 28 Because ethnic data is not always [...] REFERENCE VALUE <1.0 (Negative) Test Performed by: [facility] [employer] [facility] [address] [place] [address] 35 ADDITIONAL INFORMATION This test was developed and its performance characteristics determined by [facility] in a manner consistent with CLIA requirements. This test has not been cleared or approved by the U.S. Food and Drug Administration. Test Performed by: [facility] [employer] [facility] [address] [place] [address] 36 Test Performed by: [facility] - [address] [address] Test Performed by: [facility] - [address] [address] 38 REFERENCE VALUE <30.0 (Negative) Test Performed by: [facility] - [address] [address] 39 REFERENCE VALUE Not Applicable 40 HLA-B27 [...] INFORMATION Method: Flow Cytometry Performing Laboratory CLIA# [id number] Test Performed by: [address] [address] 41 The detection limit for SALICYLATE is [...] change was based on recommendations from the [place] [employer]. 46 Please note change in [...] change was based on recommendations from the [place] [employer]. 51 Please note change in [...] combined acid base disorder. . 58 The tinter photograph and regulatory agencies both recommend that a [...] THIS TEST WERE ESTABLISHED THROUGH VALIDATION BY [facility], AND NO APPROVAL IS REQUIRED BY THE U.S. FOOD AND DRUG ADMINISTRATION (FDA). [facility] IS REGULATED UNDER THE CLINICAL LABORATORY IMPROVEMENT AMENDMENTS OF 1988 ( CLIA ) QUALIFIED TO PERFORM HIGH COMPLEXITY CLINICAL TESTING. TEST PERFORMED BY: [employer] [id number] [place] [phone] 77 Anion gap measurement may be of [...] Procedures Date CPT Code Description Status 05/30/2017 25485 Admin Of Inj Completed 05/21/2017 60392 Inject/Drain Joint/Bursa Small W/O US Completed 12/03/2016 26594 Anoscopy Completed 08/27/201646481 Aspiration &/Or Inj Of Ganglion Cyst(S) Any Location Completed Encounters Type Date Location Provider CPT E/M Dx Office Visit 09/29/2017 [facility] Sean Cruz M.D. 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 L25.9 M06.9 Z94.4 Office Visit 08/06/2017 10:00a [facility] Sean Cruz [address]5488 M05.79 Of [place] White79.899 R31.9 M54.6 J01.90 L30.9 Office Visit 06/29/2017 2:50p [facility],[place] [address] R51 Hospitalists R50.9 R11.11 Z94.4 Office Visit 06/28/2017 2:49p [facility] [address] R51 Hospitalists R50.9 R11.11 Z94.4 Office Visit 06/27/2017 2:46p [facility] Nirmala Blandon, [address] R51 Assoc,pc MINERALOGY PROFESSOR Hospitalists R50.9 R11.11 Z94.4 Office Visit 06/26/2017 2:45p [facility],donte Mock [address] R50.9 Hospitalists MINERALOGY PROFESSOR R11.11 R51 Z94.4 Office Visit 06/18/2017 8:20a [facility] Sean Cruz [address]454 M05.79 Of [place] White79.899 M54.2 B37.0 R31.9 Office Visit 05/30/2017 1:30p [facility] Sean Cruz, [address]259 M05.79 Of [place] Yanez Z79.899 M25.541 M25.542 M79.674 M54.2 M54.6 M54.5 Office Visit 05/19/2017 4:40p [facility] Sean Cruz, [address]1347 M05.79 Of [place] Yanez Z79.899 M25.571 M54.2 L30.9 Office Visit 04/25/2017 1:00p [facility] Of Sean Cruz, [address]102 R76.0 [place].Mitch R05 M05.79 L30.9 Office Visit 12/03/2016 10:00a [facility], [address] K60.2 Tiago Yanez Office Visit 08/27/2016 1:15p [facility] [place] [address] M67.442 C.M.ALinda Office Visit 10/19/2007 2:00p DO Not Use Clerical Manager AT [facility], [address] 346.00 Thu Yanez,FACP 296.33 Office Visit 08/17/2007 3:40p DO Not Use Clerical Manager AT [facility], [address] V72.84 Thu Yanez,FACP 474.9 724.2 346.00 Office Visit 07/07/2007 11:00a DO Not Use Clerical Manager AT [facility], [address] 751.61 Thu Yanez,FACP V42.7 346.00 311 474.9 Office Visit 06/01/2007 2:40p DO Not Use Clerical Manager AT [facility], [address] 789.06 Thu Yanez,FACP V42.7 296.33 112.0 Office Visit 03/19/2007 9:20a DO Not Use Clerical Manager AT [facility], [address] 535.40 Thu Yanez,FACP V42.7 311 041.11 346.00 Plan of Care Future Appointment(s):03/11/2018 3:20 pm - Sean Anthony, M.D. 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
[2017-12-23] MEDS ORDERED: LORazepam INJ* 2 MG/ML 1 ML VIAL IV PUSH ONE (16:00)
[2017-12-23] MEDS ORDERED: PROCHLORPERAZINE INJ 5 MG/ML 2 ML VIAL IV ONE (16:00)
[2017-12-23] MEDS ORDERED: HYDROmorphone INJ* 2 MG/ML CARPUJECT SYRINGE IV SLOW PU ONE (16:06)
--- NOTE | 2017-12-23 16:55 | RAD ---
INDICATION: "Worse headache of life" COMPARISON: Most recent CT of the brain is dated August 31, 2017, acquired for a similar indication. TECHNIQUE: Contiguous axial sections of the brain were obtained from the skull base to the vertex without contrast. FINDINGS: The ventricles, cisterns and sulci are within normal limits. The dutton-white matter differentiation is adequately maintained and there is no sulcal effacement. No significant focal abnormality or mass effect is present. There is no evidence for intracranial hemorrhage. No significant focal osseous abnormality is present. The visualized portion of the paranasal sinuses appear clear. The mastoid air cells are well aerated bilaterally. IMPRESSION: Normal CT of the brain.
[2017-12-23 17:28] LABS: ABS Basophils 0 10^3/ul (0-0.2); ABS Eosinophils 0 10^3/ul (0-0.6); ABS Monocytes 0.5 10^3/ul (0-0.8); ABS Neutrophils 8.5 10^3/ul (1.5-7.7); ABS Nucleated RBC 0 10^3/ul; Eosinophil % 0.1 % (0-6); Hematocrit 38 % (35-47); Hemoglobin 13.2 g/dl (12.0-16.0); Lymphocyte % 9.8 % (25-47); Mean Corpuscular HGB Conc 34 g/dl (31-36); Mean Corpuscular Hemoglobin 29 pg (27-31); Mean Corpuscular Volume 85 fL (80-97); Mean Platelet Volume 8.9 um3 (7.4-10.4); Nucleated Red Blood Cells % 0; Platelet Count 176 10^3/ul (150-450); Red Blood Count 4.52 10^6/ul (4.00-5.40); Red Cell Distribution Width 14 % (10.5-15)
[2017-12-23 17:49] LABS: EGFR Non-African American 87.4 (>60)
[2017-12-23 18:52] VITALS: BP 130/90
--- NOTE | 2017-12-24 06:20 | ED ---
Headache - HPI Summary HPI Summary: Patient is a 37-year-old female with a history of a liver transplant and migraines presenting to the ED with worst headache of life. She states this was gradual in onset over the past 3 days but has not improved with Tylenol and ibuprofen. She endorses history of sinus headache/ocular migraine headache, however continues to state this feels different. She endorses pain behind the eyes bilaterally as well as over the frontal sinuses radiating to the occipital area. Denies neck stiffness or rigidity. Denies aura. Denies sensitivity to light, however endorses sensitivity to sound. Endorses nausea, but denies vomiting. She states she has had this before and usually lasts several days. - History Of Current Complaint Chief Complaint: EDHeadache Stated Complaint: HEADACHE/VOMITING Time Seen by Provider: 12/23/17 15:49 Hx Obtained From: Patient Hx Last Menstrual Period: 11/16/16 Onset/Duration: Gradual Onset Initially Headache Was: "Worst Headache Ever", Initial Pain Scale(0-10)= - 10 Timing: Constant Character: Throbbing Location of Headache: Diffuse Aggravating Factor: Nothing Allevating Factors: Nothing - Risk Factors SAH Risk Factors: Negative Meningitis Risk Factors: Negative SDH Risk Factors: Negative Temporal Arteritis Risk Factors: Female, - Allergies/Home Medications Allergies/Adverse Reactions: Allergies Allergy/AdvReac Type Severity Reaction Status Date / Time ceftriaxone Allergy Intermediate Hives Verified 08/31/17 12:47 gentamicin Allergy Intermediate Hives Verified 08/31/17 12:47 morphine Allergy Intermediate Hives Verified 08/31/17 12:47 acetaminophen Allergy Unknown Verified 08/31/17 12:47 Reaction Details aspirin Allergy Unknown Verified 08/31/17 12:47 Reaction Details Penicillins Allergy Unknown Verified 08/31/17 12:47 Reaction Details ibuprofen AdvReac Intermediate See Comment Verified 08/31/17 12:47 PMH/Surg Hx/FS Hx/Imm Hx Previously Healthy: Yes Endocrine/Hematology History: Reports: Hx Thyroid Disease, Hx Anemia Denies: Hx Diabetes Cardiovascular History: Denies: Hx Hypertension Respiratory History: Denies: Hx Asthma, Hx Chronic Obstructive Pulmonary Disease (COPD) GI History: Reports: Hx Cirrhosis - 2004 LIVER TRANSPLANT, BILALARY ATRESIA, Hx Gastroesophageal Reflux Disease, Hx Hiatal Hernia, Other GI Disorders - Liver transplant for biliary atresia, 2004 Denies: Hx Ulcer History: Reports: Hx Kidney Infection - R/T STONE 2009, Hx Kidney Stones - NO SURGERY Musculoskeletal History: Reports: Hx Arthritis - ankylosing spondylitis , Hx Rheumatoid Arthritis, Hx Bursitis - L Shoulder, Other Musculoskeletal History - 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 Sensory History: Denies: Hx Contacts or Glasses, Hx Hearing Aid Opthamlomology History: Denies: Hx Contacts or Glasses Neurological History: Reports: Hx Migraine - HX OF AFTER LIVER TRANSPLANT 2004 NONE RECENT Psychiatric History: Reports: Hx Anxiety, Hx Depression - Surgical History Surgery Procedure, Year, and Place: 1979 ifeanyi procedure, (bad liver) ,D&C 1996, Tubal ligation 2000, liver transplant 07/2004 (liver failure) [facility], tonsillectomy 2008 [facility] Hx Anesthesia Reactions: Yes - HIGH ISABELL TO PAIN MEDS REPORTS AWAKENING DURING PROCEDURES - Immunization History Date of Tetanus Vaccine: <10 years Immunizations Up to Date: No Infectious Disease History: No Infectious Disease History: Reports: Hx of Known/Suspected MRSA Denies: Hx Clostridium Difficile, Hx Hepatitis, Hx Human Immunodeficiency Virus (HIV), Hx Shingles, Hx Tuberculosis, Hx Known/Suspected VRE, Hx Known/ Suspected VRSA, History Other Infectious Disease, Traveled Outside the [place] in Last 30 Days - Family History Known Family History: Positive: Other - Mother -- HLD; Father -- unspecified thyroid issue Negative: Cardiac Disease, Hypertension, Diabetes - Social History Occupation: Employed Full-time Lives: With Family Alcohol Use: None Hx Substance Use: No Substance Use Type: Reports: None Hx Tobacco Use: No Smoking Status (MU): Never Smoked Tobacco Review of Systems Constitutional: Negative Negative: Fever, Chills, Fatigue, Skin Diaphoresis Negative: Photophobia, Blurred Vision, Diplopia, Drainage Negative: Palpitations, Chest Pain Negative: Shortness Of Breath, Cough Positive: Nausea. Negative: Abdominal Pain, Vomiting, Diarrhea Negative: Arthralgia, Myalgia Negative: Rash, Bruising Positive: Headache. Negative: Weakness, Paresthesia, Numbness, Syncope, Slurred Speech Psychological: Normal All Other Systems Reviewed And Are Negative: Yes Physical Exam Triage Information Reviewed: Yes Vital Signs On Initial Exam: Initial Vitals Temp Pulse Resp BP Pulse Ox 99.6 F 122 18 130/93 96 12/23/17 13:05 12/23/17 13:05 12/23/17 13:05 12/23/17 13:05 12/23/17 13:05 Vital Signs Reviewed: Yes Appearance: Positive: Ill-Appearing, Pain Distress Skin: Positive: Skin Color Reflects Adequate Perfusion Head/Face: Positive: Normal Head/Face Inspection Eyes: Positive: EOMI, RC, Conjunctiva Clear Neck: Positive: Supple, No Lymphadenopathy Respiratory/Lung Sounds: Positive: Clear to Auscultation, Breath Sounds Present Cardiovascular: Positive: RRR, Pulses are Symmetrical in both Upper and Lower Extremities Musculoskeletal: Positive: Normal, Strength/ROM Intact Neurological: Positive: Sensory/Motor Intact, Alert, Oriented to Person Place, Time, Speech Normal Psychiatric: Positive: Normal, Affect/Mood Appropriate AVPU Assessment: Alert Diagnostics - Vital Signs Vital Signs Temp Pulse Resp BP Pulse Ox 12/23/17 18:51 98.7 F 98 16 130/90 100 12/23/17 16:32 18 12/23/17 16:29 18 12/23/17 15:32 98.8 F 114 18 138/106 100 12/23/17 14:13 99.1 F 122 22 133/98 98 12/23/17 13:05 99.6 F 122 18 130/93 96 - Laboratory Lab Results: Lab Results 12/23/17 12/23/17 12/23/17 Range/Units 17:10 17:10 17:10 WBC 10.0 (3.5-10.8) 10^3/ul RBC 4.52 (4.00-5.40) 10^6/ul Hgb 13.2 (12.0-16.0) g/dl Hct 38 (35-47) % MCV 85 (80-97) fL MCH 29 (27-31) pg MCHC 34 (31-36) g/dl RDW 14 (10.5-15) % Plt Count 176 (150-450) 10^3/ul MPV 8.9 (7.4-10.4) um3 Neut % (Auto) 84.6 H (38-83) % Lymph % (Auto) 9.8 L (25-47) % [place] % (Auto) 5.1 (0-7) % Eos % (Auto) 0.1 (0-6) % Baso % (Auto) 0.4 (0-2) % Absolute Neuts (auto) 8.5 H (1.5-7.7) 10^3/ul Absolute Lymphs (auto) 1.0 (1.0-4.8) 10^3/ul Absolute Monos (auto) 0.5 (0-0.8) 10^3/ul Absolute Eos (auto) 0 (0-0.6) 10^3/ul Absolute Basos (auto) 0 (0-0.2) 10^3/ul Absolute Nucleated RBC 0 10^3/ul Nucleated RBC % 0 ESR 21 H (0-14) mm/Hr Carbon Monoxide Screen (<4.0) % Sodium 138 (135-145) mmol/L Potassium 4.0 (3.5-5.0) mmol/L Chloride 108 (101-111) mmol/L Carbon Dioxide 21 L (22-32) mmol/L Anion Gap 9 (2-11) mmol/L BUN 15 (6-24) mg/dL Creatinine 0.74 (0.51-0.95) mg/dL Est GFR ( Amer) 105.7 (>60) Est GFR (Non-Af Amer) 87.4 (>60) BUN/Creatinine Ratio 20.3 H (8-20) Glucose 106 H (70-100) mg/dL Lactic Acid 0.9 (0.5-2.0) mmol/L Calcium 8.9 (8.6-10.3) mg/dL Total Bilirubin 0.50 (0.2-1.0) mg/dL AST 15 (13-39) U/L ALT 12 (7-52) U/L Alkaline Phosphatase 74 (34-104) U/L Total Protein 7.2 (6.4-8.9) g/dL Albumin 3.9 (3.2-5.2) g/dL Globulin 3.3 (2-4) g/dL Albumin/Globulin Ratio 1.2 (1-3) 12/23/17 Range/Units 17:11 WBC (3.5-10.8) 10^3/ul RBC (4.00-5.40) 10^6/ul Hgb (12.0-16.0) g/dl Hct (35-47) % MCV (80-97) fL MCH (27-31) pg MCHC (31-36) g/dl RDW (10.5-15) % Plt Count (150-450) 10^3/ul MPV (7.4-10.4) um3 Neut % (Auto) (38-83) % Lymph % (Auto) (25-47) % [place] % (Auto) (0-7) % Eos % (Auto) (0-6) % Baso % (Auto) (0-2) % Absolute Neuts (auto) (1.5-7.7) 10^3/ul Absolute Lymphs (auto) (1.0-4.8) 10^3/ul Absolute Monos (auto) (0-0.8) 10^3/ul Absolute Eos (auto) (0-0.6) 10^3/ul Absolute Basos (auto) (0-0.2) 10^3/ul Absolute Nucleated RBC 10^3/ul Nucleated RBC % ESR (0-14) mm/Hr Carbon Monoxide Screen < 4 (<4.0) % Sodium (135-145) mmol/L Potassium (3.5-5.0) mmol/L Chloride (101-111) mmol/L Carbon Dioxide (22-32) mmol/L Anion Gap (2-11) mmol/L BUN (6-24) mg/dL Creatinine (0.51-0.95) mg/dL Est GFR ( Amer) (>60) Est GFR (Non-Af Amer) (>60) BUN/Creatinine Ratio (8-20) Glucose (70-100) mg/dL Lactic Acid (0.5-2.0) mmol/L Calcium (8.6-10.3) mg/dL Total Bilirubin (0.2-1.0) mg/dL AST (13-39) U/L ALT (7-52) U/L Alkaline Phosphatase (34-104) U/L Total Protein (6.4-8.9) g/dL Albumin (3.2-5.2) g/dL Globulin (2-4) g/dL Albumin/Globulin Ratio (1-3) Result Diagrams: 12/23/17 17:10 12/23/17 17:10 Lab Statement: Any lab studies that have been ordered have been reviewed, and results considered in the medical decision making process. Headache Course/Dx - Course Course Of Treatment: During the course of treatment, the patient is given Ativan and Compazine with good relief. She is unable to take NSAIDs due to her liver transplant. She states she feels comfortable and is requesting these medications on discharge. Labs obtained are all WNL except for a slightly elevated ESR and CRP. Will discharge with diagnosis of ocular migraine and patient will follow-up with neurology if symptoms persist or worsen. - Diagnoses Differential Diagnosis/HQI/PQRI: Migraine, Sinus Headache, Tension Headache Provider Diagnoses: Ocular headache Discharge - Sign-Out/Discharge Documenting (check all that apply): Patient Departure - Discharge Plan Condition: Stable Disposition: HOME Prescriptions: LORazepam TAB(*) [Ativan 1 MG TAB (*)] 1 mg PO Q8H PRN #10 tab MDD 3 PRN Reason: Headache Patient Education Materials: Migraine Headache (ED) Referrals: Neil Bernard MD [Primary Care Provider] - Keshav Ca MD [Medical Doctor] - Additional Instructions: As discussed, this could be a migraine headache or a sinus headache Please follow-up with neurology if any symptoms worsen Ativan up to 3 times daily - Billing Disposition and Condition Condition: STABLE Disposition: Home
== END 2017-12-23 18:51 | disposition home or self-care (01) ==
LOC: ED 13:03
DX: G43.B0 Ophthalmoplegic migraine, not intractable (principal); Z94.4 Liver transplant status; Z88.0 Allergy status to penicillin; Z88.5 Allergy status to narcotic agent; Z88.3 Allergy status to other anti-infective agents
CPT/HCPCS: 36415; 70450; 80053; 82375; 83605; 85025; 85652; 93005; 96374; 96375; 99283; J0780; J1170; J2060

== ENCOUNTER 2018-05-04 14:46 | Emergency (ER) | payer OTHER ==
[2018-05-04 16:34] LABS: ABS Basophils 0 10^3/ul (0-0.2); ABS Eosinophils 0.1 10^3/ul (0-0.6); ABS Lymphocytes 1.4 10^3/ul (1.0-4.8); ABS Monocytes 0.6 10^3/ul (0-0.8); ABS Neutrophils 5.5 10^3/ul (1.5-7.7); ABS Nucleated RBC 0 10^3/ul; Hematocrit 40 % (35-47); Hemoglobin 13.7 g/dl (12.0-16.0); Lymphocyte % 18.3 %; Mean Corpuscular HGB Conc 34 g/dl (31-36); Mean Corpuscular Hemoglobin 29 pg (27-31); Mean Corpuscular Volume 85 fL (80-97); Mean Platelet Volume 8.4 fL (7.4-10.4); Nucleated Red Blood Cells % 0.1; Platelet Count 188 10^3/ul (150-450); Red Blood Count 4.72 10^6/ul (4.00-5.40); Red Cell Distribution Width 13 % (10.5-15); White Blood Count 7.6 10^3/ul (3.5-10.8)
[2018-05-04 16:57] LABS: Albumin 4.1 g/dL (3.2-5.2); Albumin/Globulin Ratio 1.3 (1-3); BUN/Creatinine Ratio 18.2 (8-20); C Reactive Protein 2.71 mg/L (<8.01); Calcium 9.1 mg/dL (8.6-10.3); EGFR Non-African American 83.5 (>60); Globulin 3.2 g/dL (2-4); Potassium 3.9 mmol/L (3.5-5.0); Total Bilirubin 0.4 mg/dL (0.2-1.0); Total Protein 7.3 g/dL (6.4-8.9)
[2018-05-04 17:01] LABS: HCG Pregnancy 0.61 mIU/mL
[2018-05-04 17:17] LABS: TSH (Thyroid Stimulating Horm) 1.98 mcIU/mL (0.34-5.60)
--- NOTE | 2018-05-04 18:18 | ED ---
Palpitations / Dysrhythmia - HPI Summary HPI Summary: Patient complains of accelerated heart rate times several days with intermittent SOB. SOB is not exertional, random onset. History of accelerated heart rate times months, currently being evaluated by cardiology. Associated symptoms are lightheadedness, occasional difficulty focusing. Patient also states she stopped her once daily clonazepam 13 days ago because she hasn't had a chance to order picker refill. Patient also has history of liver transplant in 2004, currently taking immunosuppressants. Denies any new medications. Also denies fever, cough, sore throat, CP, N/V/D, abdominal pain, change in urine, change in BM. Medical history is ankylosing spondylitis, RA, liver transplant. - History of Current Complaint Chief Complaint: EDGeneral Time Seen by Provider: 05/04/18 15:14 Hx Obtained From: Patient Onset/Duration: Gradual Onset, Lasting Days Severity Initially: Mild Severity Currently: Mild Character: Fast Aggravating: Nothing Alleviating: Nothing Associated Signs & Symptoms: Lightheadedness, Shortness of Breath - Risk Factors Cardiac: Negative Pulmonary Embolism: Negative - Allergy/Home Medications Allergies/Adverse Reactions: Allergies Allergy/AdvReac Type Severity Reaction Status Date / Time ceftriaxone Allergy Intermediate Hives Verified 05/04/18 15:06 gentamicin Allergy Intermediate Hives Verified 05/04/18 15:06 morphine Allergy Intermediate Hives Verified 05/04/18 15:06 acetaminophen Allergy Unknown Verified 05/04/18 15:06 Reaction Details aspirin Allergy Unknown Verified 05/04/18 15:06 Reaction Details Penicillins Allergy Unknown Verified 05/04/18 15:06 Reaction Details ibuprofen AdvReac Intermediate See Comment Verified 05/04/18 15:06 PMH/Surg Hx/FS Hx/Imm Hx Endocrine/Hematology History: Reports: Hx Thyroid Disease, Hx Anemia Denies: Hx Diabetes Cardiovascular History: Reports: Other Cardiovascular Problems/Disorders - HX TACHYCARDIA Denies: Hx Hypertension, Hx Pacemaker/ICD Respiratory History: Denies: Hx Asthma, Hx Chronic Obstructive Pulmonary Disease (COPD) GI History: Reports: Hx Cirrhosis - 2004 LIVER TRANSPLANT, BILALARY ATRESIA, Hx Gastroesophageal Reflux Disease, Hx Hiatal Hernia, Other GI Disorders - Liver transplant for biliary atresia, 2004 Denies: Hx Ulcer History: Reports: Hx Kidney Infection - R/T STONE 2008, Hx Kidney Stones - NO SURGERY, Hx Renal Disease - HX OF STONE AND INFECTIONS Musculoskeletal History: Reports: Hx Arthritis - ankylosing spondylitis , Hx Rheumatoid Arthritis, Hx Bursitis - L Shoulder, Other Musculoskeletal History - 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, tonsillectomy 2008 [facility]. LEFT FOOT BONE SPUR Hx Anesthesia Reactions: Yes - HIGH ISABELL TO PAIN MEDS REPORTS AWAKENING DURING PROCEDURES - Immunization History Date of Tetanus Vaccine: <10 years Infectious Disease History: No Infectious Disease History: Reports: Hx of Known/Suspected MRSA Denies: Hx Clostridium Difficile, Hx Hepatitis, Hx Human Immunodeficiency Virus (HIV), Hx Shingles, Hx Tuberculosis, Hx Known/Suspected VRE, Hx Known/ Suspected VRSA, History Other Infectious Disease, Traveled Outside the [place] in Last 30 Days - Family History Known Family History: Positive: Hypertension - mother, Other - father- hypothyroid Negative: Cardiac Disease, Diabetes - Social History Alcohol Use: None Hx Substance Use: No Substance Use Type: Reports: None Hx Tobacco Use: No Smoking Status (MU): Never Smoked Tobacco Review of Systems Constitutional: Negative Eyes: Negative ENT: Negative Positive: Palpitations Positive: Shortness Of Breath Gastrointestinal: Negative Genitourinary: Negative Musculoskeletal: Negative Skin: Negative Neurological: Negative Psychological: Normal All Other Systems Reviewed And Are Negative: Yes Physical Exam - Summary Physical Exam Summary: Tachycardia with regular rate and rhythm. Lung sounds clear to auscultation bilaterally. Abdomen soft nontender. Neuro exam normal. Triage Information Reviewed: Yes Vital Signs On Initial Exam: Initial Vitals Temp Pulse Resp BP Pulse Ox 99.1 F 116 18 125/91 98 05/04/18 15:01 05/04/18 15:01 05/04/18 15:01 05/04/18 15:01 05/04/18 15:01 Vital Signs Reviewed: Yes Appearance: Positive: Well-Appearing Skin: Positive: Warm Head/Face: Positive: Normal Head/Face Inspection Eyes: Positive: Normal Neck: Positive: Supple Respiratory/Lung Sounds: Positive: Clear to Auscultation Cardiovascular: Positive: Tachycardia Abdomen Description: Positive: Nontender Musculoskeletal: Positive: Normal Neurological: Positive: Normal Psychiatric: Positive: Normal AVPU Assessment: Alert - [place] Coma Scale Best Eye Response: 4 - Spontaneous Best Motor Response: 6 - Obeys Commands Best Verbal Response: 5 - Oriented Coma Scale Total: 15 Diagnostics - Vital Signs Vital Signs Temp Pulse Resp BP Pulse Ox 05/04/18 17:09 123 17 114/97 100 05/04/18 17:06 97 15 133/92 100 05/04/18 16:56 111 11 121/89 99 05/04/18 16:52 109 15 127/86 98 05/04/18 16:26 106 26 128/89 98 05/04/18 15:56 107 24 132/103 98 05/04/18 15:01 99.1 F 116 18 125/91 98 - Laboratory Lab Results: Lab Results 05/04/18 05/04/18 05/04/18 Range/Units 16:19 16:19 16:19 WBC 7.6 (3.5-10.8) 10^3/ul RBC 4.72 (4.00-5.40) 10^6/ul Hgb 13.7 (12.0-16.0) g/dl Hct 40 (35-47) % MCV 85 (80-97) fL MCH 29 (27-31) pg MCHC 34 (31-36) g/dl RDW 13 (10.5-15) % Plt Count 188 (150-450) 10^3/ul MPV 8.4 (7.4-10.4) fL Neut % (Auto) 72.4 % Lymph % (Auto) 18.3 % [place] % (Auto) 7.7 % Eos % (Auto) 1.0 % Baso % (Auto) 0.6 % Absolute Neuts (auto) 5.5 (1.5-7.7) 10^3/ul Absolute Lymphs (auto) 1.4 (1.0-4.8) 10^3/ul Absolute Monos (auto) 0.6 (0-0.8) 10^3/ul Absolute Eos (auto) 0.1 (0-0.6) 10^3/ul Absolute Basos (auto) 0 (0-0.2) 10^3/ul Absolute Nucleated RBC 0 10^3/ul Nucleated RBC % 0.1 ESR (0-14) mm/Hr D-Dimer, Quantitative < 200 (Less Than 230) ng/mL Sodium 136 (135-145) mmol/L Potassium 3.9 (3.5-5.0) mmol/L Chloride 103 (101-111) mmol/L Carbon Dioxide 26 (22-32) mmol/L Anion Gap 7 (2-11) mmol/L BUN 14 (6-24) mg/dL Creatinine 0.77 (0.51-0.95) mg/dL Est GFR ( Amer) 101.0 (>60) Est GFR (Non-Af Amer) 83.5 (>60) BUN/Creatinine Ratio 18.2 (8-20) Glucose 96 (70-100) mg/dL Calcium 9.1 (8.6-10.3) mg/dL Total Bilirubin 0.40 (0.2-1.0) mg/dL AST 18 (13-39) U/L ALT 17 (7-52) U/L Alkaline Phosphatase 89 (34-104) U/L Troponin I 0.00 (<0.04) ng/mL C-Reactive Protein 2.71 (<8.01) mg/L Total Protein 7.3 (6.4-8.9) g/dL Albumin 4.1 (3.2-5.2) g/dL Globulin 3.2 (2-4) g/dL Albumin/Globulin Ratio 1.3 (1-3) TSH 1.98 (0.34-5.60) mcIU/mL Beta HCG, Quant 0.61 mIU/mL 05/04/18 Range/Units 16:19 WBC (3.5-10.8) 10^3/ul RBC (4.00-5.40) 10^6/ul Hgb (12.0-16.0) g/dl Hct (35-47) % MCV (80-97) fL MCH (27-31) pg MCHC (31-36) g/dl RDW (10.5-15) % Plt Count (150-450) 10^3/ul MPV (7.4-10.4) fL Neut % (Auto) % Lymph % (Auto) % [place] % (Auto) % Eos % (Auto) % Baso % (Auto) % Absolute Neuts (auto) (1.5-7.7) 10^3/ul Absolute Lymphs (auto) (1.0-4.8) 10^3/ul Absolute Monos (auto) (0-0.8) 10^3/ul Absolute Eos (auto) (0-0.6) 10^3/ul Absolute Basos (auto) (0-0.2) 10^3/ul Absolute Nucleated RBC 10^3/ul Nucleated RBC % ESR 16 H (0-14) mm/Hr D-Dimer, Quantitative (Less Than 230) ng/mL Sodium (135-145) mmol/L Potassium (3.5-5.0) mmol/L Chloride (101-111) mmol/L Carbon Dioxide (22-32) mmol/L Anion Gap (2-11) mmol/L BUN (6-24) mg/dL Creatinine (0.51-0.95) mg/dL Est GFR ( Amer) (>60) Est GFR (Non-Af Amer) (>60) BUN/Creatinine Ratio (8-20) Glucose (70-100) mg/dL Calcium (8.6-10.3) mg/dL Total Bilirubin (0.2-1.0) mg/dL AST (13-39) U/L ALT (7-52) U/L Alkaline Phosphatase (34-104) U/L Troponin I (<0.04) ng/mL C-Reactive Protein (<8.01) mg/L Total Protein (6.4-8.9) g/dL Albumin (3.2-5.2) g/dL Globulin (2-4) g/dL Albumin/Globulin Ratio (1-3) TSH (0.34-5.60) mcIU/mL Beta HCG, Quant mIU/mL Result Diagrams: 05/04/18 16:19 05/04/18 16:19 Lab Statement: Any lab studies that have been ordered have been reviewed, and results considered in the medical decision making process. Course/Dx - Course Course Of Treatment: Patient complains of accelerated heart rate times several days with intermittent SOB. SOB is not exertional, random onset. History of accelerated heart rate times months, currently being evaluated by cardiology. Associated symptoms are lightheadedness, occasional difficulty focusing. Patient also states she stopped her once daily clonazepam 13 days ago because she hasn't had a chance to order picker refill. Patient also has history of liver transplant in 2004, currently taking immunosuppressants. Denies any new medications. Also denies fever, cough, sore throat, CP, N/V/D, abdominal pain, change in urine, change in BM. Medical history is ankylosing spondylitis, RA, liver transplant. Physical exam:Tachycardia with regular rate and rhythm. Lung sounds clear to auscultation bilaterally. Abdomen soft nontender. Neuro exam normal. Patient tachycardic, vital signs otherwise unremarkable. ESR 16, labs otherwise unremarkable. EKG sinus tachycardia. Chest x-ray unremarkable. D-dimer negative. Recommend patient continue ongoing evaluation with cardiology. - Diagnoses Provider Diagnoses: Tachycardia Discharge - Sign-Out/Discharge Documenting (check all that apply): Patient Departure - Discharge Plan Condition: Stable Disposition: HOME Patient Education Materials: Tachycardia (ED) Referrals: Neil Bernard MD [Primary Care Provider] - Additional Instructions: Follow up with cardiology for further evaluation of accelerated heart rate. Return to the ED for any new or worsening symptoms - Billing Disposition and Condition Condition: STABLE Disposition: Home
[2018-05-04 18:40] VITALS: BP 135/87
== END 2018-05-04 18:36 | disposition home or self-care (01) ==
LOC: ED 14:46
DX: R00.0 Tachycardia, unspecified (principal); E07.9 Disorder of thyroid, unspecified; Z88.0 Allergy status to penicillin; M06.9 Rheumatoid arthritis, unspecified; Z94.4 Liver transplant status; F41.9 Anxiety disorder, unspecified; F32.9 Major depressive disorder, single episode, unspecified; M47.9 Spondylosis, unspecified
CPT/HCPCS: 36415; 71046; 80053; 84443; 84484; 84702; 85025; 85379; 85652; 86140; 93005; 99282

== ENCOUNTER → 2018-08-29 19:04 | Emergency (ER) | payer BC ==
[~2018-08-29 19:04] MED LIST changes: +Bisacodyl SUPP* 10 MG SUPP PR ONE; +Levofloxacin 750 MG IVPREMIX(* 750 MG/150 ML BAG IVPB ONE; +Magnesium CITRATE* 300 ML BTL PO ONE; +Metoclopramide IV* 5 MG/ML 2 ML VIAL IV SLOW PU ONE; +Morphine 4 MG/ML VIAL (1 ml) 4 MG/ML VIAL IV ONE; -Vancomycin(*) 1,500 MG in NS 0.9% 250 ML* 250 ML IVPB ONE; +fentaNYL* 50 MCG/ML 2 ML VIAL (100 MCG VIAL) IV SLOW PU ONE
--- NOTE | 2018-08-29 20:02 | ED ---
Abdominal Pain/Female - HPI Summary HPI Summary: This patient is a 38 year old F presenting to [facility] with a chief complaint of right sided flank pain since yesterday morning. The patient rates the pain 7/10 in severity. Patient reports vomiting yesterday morning, fever, mild dysuria, increased frequency of urination, skin abscess on the left groin starting two days ago, and a cough. She took ibuprofen a few hours ago for her fever. 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 She is now on immunosuppressants and has a history of two kidney infections. She was not admitted to the hospital for her most recent one last year, but she was admitted the time before. - History of Current Complaint Chief Complaint: EDFlankPain Stated Complaint: ABSCESS/LOWER BACK PAIN/NAUSEA PER PT Time Seen by Provider: 08/29/18 19:51 Hx Obtained From: Patient Hx Last Menstrual Period: 02/19/18 Onset/Duration: Sudden Onset, Lasting Days, Still Present Timing: Constant Severity Initially: Moderate Severity Currently: Moderate Pain Intensity: 6 Pain Scale Used: 0-10 Numeric Location: Flank - Right Radiates: No Aggravating Factor(s): Movement Alleviating Factor(s): Medications - Ibuprofen Associated Signs and Symptoms: Positive: Fever, Cough, Urinary Symptoms - Mild dysuria and increased frequency, Vomiting, Other: - Skin abscess on her left groin Allergies/Adverse Reactions: Allergies Allergy/AdvReac Type Severity Reaction Status Date / Time ceftriaxone Allergy Intermediate Hives Verified 08/29/18 19:12 gentamicin Allergy Intermediate Hives Verified 08/29/18 19:12 morphine Allergy Intermediate Hives Verified 08/29/18 19:12 acetaminophen Allergy Unknown Verified 08/29/18 19:12 Reaction Details aspirin Allergy Unknown Verified 08/29/18 19:12 Reaction Details Penicillins Allergy Unknown Verified 08/29/18 19:12 Reaction Details ibuprofen AdvReac Intermediate See Comment Verified 08/29/18 19:12 PMH/Surg Hx/FS Hx/Imm Hx Endocrine/Hematology History: Reports: Hx Thyroid Disease, Hx Anemia Denies: Hx Diabetes Cardiovascular History: Reports: Other Cardiovascular Problems/Disorders - HX TACHYCARDIA Denies: Hx Hypertension, Hx Pacemaker/ICD Respiratory History: Denies: Hx Asthma, Hx Chronic Obstructive Pulmonary Disease (COPD) GI History: Reports: Hx Cirrhosis - 2005 LIVER TRANSPLANT, BILALARY ATRESIA, Hx Gastroesophageal Reflux Disease, Hx Hiatal Hernia, Other GI Disorders - Liver transplant for biliary atresia, 2004 Denies: Hx Ulcer History: Reports: Hx Kidney Infection - R/T STONE 2008, Hx Kidney Stones - NO SURGERY, Hx Renal Disease - HX OF STONE AND INFECTIONS Musculoskeletal History: Reports: Hx Arthritis - ankylosing spondylitis , Hx Rheumatoid Arthritis, Hx Bursitis - L Shoulder, Other Musculoskeletal History - 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 LEFT FOOT BONE SPUR Hx Anesthesia Reactions: Yes - HIGH ISABELL TO PAIN MEDS REPORTS AWAKENING DURING PROCEDURES - Immunization History Date of Tetanus Vaccine: <10 years Infectious Disease History: No Infectious Disease History: Reports: Hx of Known/Suspected MRSA Denies: Hx Clostridium Difficile, Hx Hepatitis, Hx Human Immunodeficiency Virus (HIV), Hx Shingles, Hx Tuberculosis, Hx Known/Suspected VRE, Hx Known/ Suspected VRSA, History Other Infectious Disease, Traveled Outside the [place] in Last 30 Days - Family History Known Family History: Positive: Hypertension - mother, Other - father- hypothyroid Negative: Cardiac Disease, Diabetes - Social History Alcohol Use: None Hx Substance Use: No Substance Use Type: Reports: None Hx Tobacco Use: No Smoking Status (MU): Never Smoked Tobacco Review of Systems Positive: Fever Positive: Cough Positive: Vomiting Positive: dysuria - Mild, frequency - Increased Positive: Other - Abscess on the left groin All Other Systems Reviewed And Are Negative: Yes Physical Exam - Summary Physical Exam Summary: VITAL SIGNS: Reviewed. GENERAL: Patient is a well-developed and nourished FEMALE who is lying comfortable in the stretcher. Patient is not in any acute respiratory distress. HEAD AND FACE: No signs of trauma. No ecchymosis, hematomas or skull depressions. No sinus tenderness. EYES: PERRLA, EOMI x 2, No injected conjunctiva, no nystagmus. EARS: Hearing grossly intact. Ear canals and tympanic membranes are within normal limits. MOUTH: Oropharynx within normal limits. NECK: Supple, trachea is midline, no adenopathy, no JVD, no carotid bruit, no c- spine tenderness, neck with full ROM CHEST: Symmetric, no tenderness at palpation LUNGS: Clear to auscultation bilaterally. No wheezing or crackles. CVS: Regular rate and rhythm, S1 and S2 present, no murmurs or gallops appreciated. ABDOMEN: Right CVA tenderness. No signs of distention. No rebound no guarding, and no masses palpated. Bowel sounds are normal. EXTREMITIES: FROM in all major joints, no edema, no cyanosis or clubbing. NEURO: Alert and oriented x 3. No acute neurological deficits. Speech is normal and follows commands. SKIN: Dry and warm. No evidence of cellulitis or abscess on the left groin. Triage Information Reviewed: Yes Vital Signs On Initial Exam: Initial Vitals Temp Pulse Resp BP Pulse Ox 97.2 F 112 16 122/99 99 08/29/18 19:12 08/29/18 19:12 08/29/18 19:12 08/29/18 19:12 08/29/18 19:12 Vital Signs Reviewed: Yes Diagnostics - Vital Signs Vital Signs Temp Pulse Resp BP Pulse Ox 08/29/18 19:12 97.2 F 112 16 122/99 99 - Laboratory Result Diagrams: 08/29/18 20:39 08/29/18 20:39 Lab Statement: Any lab studies that have been ordered have been reviewed, and results considered in the medical decision making process. - CT Abdomen/Pelvis CT CT Interpretation Completed By: Radiologist Summary of CT Findings: 21:14 - No evidence of renal calculi or obstructive uropathy. Small follicular cyst in the right ovary. No free fluid. Severe constipation. ED Physician has reviewed this imaging report. Abdominal Pain Fem Course/Dx - Course Course Of Treatment: This patient is a 38 year old F presenting to [facility] with a chief complaint of right sided flank pain since yesterday morning. Abdomen/ Pelvis CT was negative except for a small cyst and severe constipation. Patient was d/c home with a dx of back pain. - Diagnoses Provider Diagnoses: Back pain, Constipation Discharge - Sign-Out/Discharge Documenting (check all that apply): Patient Departure - D/C home Patient Received Moderate/Deep Sedation with Procedure: No - Discharge Plan Condition: Stable Disposition: HOME Patient Education Materials: Back Pain (ED) Referrals: Neil Bernard MD [Primary Care Provider] - 3 Days Additional Instructions: Follow up with your primary care provider in three days. PLEASE RETURN TO THE ED IMMEDIATELY FOR WORSENING OR CONCERNING SYMPTOMS. - Attestation Statements Document Initiated by Scribe: Yes Documenting Scribe: Raza Sim Provider For Whom Scribe is Documenting (Include Credential): Elieser Amado MD Scribe Attestation: Raza Slater, scribed for Elieser Amado MD on 08/29/18 at 2142. Status of Scribe Document: Ready
[2018-08-29 20:10] LABS: Urine Appearance Clear; Urine Bilirubin Negative (Negative); Urine Blood Negative (Negative); Urine Color Yellow; Urine Glucose Negative (Negative); Urine Ketones Negative (Negative); Urine Nitrite Negative (Negative); Urine Protein Negative (Negative); Urine Specific Gravity 1.009 (1.010-1.030); Urine Urobilinogen Negative (Negative)
[2018-08-29] MEDS: NS 0.9% 1000 ML** 2,000 ML IV ONE (20:25)
[2018-08-29 20:53] LABS: Hematocrit 38 % (35-47); Hemoglobin 13.1 g/dL (12.0-16.0); Mean Corpuscular HGB Conc 34 g/dL (31-36); Mean Corpuscular Hemoglobin 29 pg (27-31); Mean Corpuscular Volume 85 fL (80-97); Red Blood Count 4.49 10^6 /uL (3.70-4.87); Red Cell Distribution Width 14 % (10.5-15)
[2018-08-29 20:56] LABS: Activated Partial Thrombo Time 23.2 seconds (26.0-36.3); INR 0.97 (0.82-1.09)
[2018-08-29 21:06] LABS: Albumin 3.7 g/dL (3.2-5.2); Albumin/Globulin Ratio 1.1 (1-3); BUN/Creatinine Ratio 28.1 (8-20); C Reactive Protein 5.33 mg/L (<8.01); Calcium 8.7 mg/dL (8.6-10.3); EGFR African American 124.4 (>60); EGFR Non-African American 102.8 (>60); Globulin 3.3 g/dL (2-4); Potassium 3.9 mmol/L (3.5-5.0); Total Bilirubin 0.3 mg/dL (0.2-1.0)
[2018-08-29 21:12] LABS: HCG Pregnancy 0.79 mIU/mL
[2018-08-29 21:21] LABS: ABS Basophils 0.1 10^3/ul (0-0.2); ABS Eosinophils 0.1 10^3/ul (0-0.6); ABS Lymphocytes 2.3 10^3/ul (1.0-4.8); ABS Monocytes 0.8 10^3/ul (0-0.8); ABS Neutrophils 6.7 10^3/ul (1.5-7.7); Eosinophil % 1.4 %; Lymphocyte % 22.8 %; Nucleated Red Blood Cells % 0.1; Platelet Count Platelets clumped. 10^3/uL (150-450)
[2018-08-29 23:14] VITALS: BP 117/86
== END | disposition home or self-care (01) ==
LOC: ED 19:04
DX: M54.9 Dorsalgia, unspecified (principal); K59.00 Constipation, unspecified; Z86.14 Personal history of Methicillin resistant Staphylococcus aureus infection; R10.84 Generalized abdominal pain; R50.9 Fever, unspecified; R05 Cough; R30.0 Dysuria; Z88.6 Allergy status to analgesic agent; Z88.0 Allergy status to penicillin; Z94.4 Liver transplant status; Z87.442 Personal history of urinary calculi; Z86.39 Personal history of other endocrine, nutritional and metabolic disease; K21.9 Gastro-esophageal reflux disease without esophagitis
CPT/HCPCS: 36415; 74176; 80053; 81003; 83605; 84702; 85025; 85610; 85730; 86140; 87040; 96361; 96365; 96366; 96375; 99282; A9270-GY; J2765; J3010

== ENCOUNTER 2019-04-11 14:28 | Emergency (ER) | payer BC ==
[2019-04-11 14:40] VITALS: BP 126/87
--- NOTE | 2019-04-11 15:22 | UC ---
Respiratory Complaint HPI - HPI Summary HPI Summary: 6 DAYS OF URI SYMPTOMS INCLUDING COUGH, CONGESTION, FATIGUE AND MILD EAR PAIN. HAS A HISTORY OF LIVER TRANSPLANT AND IS ON IMMUNOSUPPRESSIVE MEDICATION. SHE DENIES FEVER. - History of Current Complaint Chief Complaint: UCRespiratory Stated Complaint: CHEST CONGESTION COUGH Time Seen by Provider: 04/11/19 14:47 Hx Obtained From: Patient, Family/Shift Leader - Hx Last Menstrual Period: 03/29/19 Onset/Duration: Gradual Onset, Lasting Days, Still Present Timing: Constant Severity Initially: Moderate Severity Currently: Moderate Pain Intensity: 8 Pain Scale Used: 0-10 Numeric Character: Cough: Nonproductive Aggravating Factors: Nothing Alleviating Factors: Nothing Associated Signs And Symptoms: Positive: URI, Nasal Congestion. Negative: Dyspnea, Fever, Chills, Wheezing - Allergies/Home Medications Allergies/Adverse Reactions: Allergies Allergy/AdvReac Type Severity Reaction Status Date / Time ceftriaxone Allergy Intermediate Hives Verified 04/11/19 14:41 gentamicin Allergy Intermediate Hives Verified 04/11/19 14:41 morphine Allergy Intermediate Hives Verified 04/11/19 14:41 acetaminophen Allergy Unknown Verified 04/11/19 14:41 Reaction Details aspirin Allergy Unknown Verified 04/11/19 14:41 Reaction Details Penicillins Allergy Unknown Verified 04/11/19 14:41 Reaction Details ibuprofen AdvReac Intermediate See Comment Verified 04/11/19 14:41 Home Medications: Home Medications Cyclobenzaprine HCl 1 tab PO QPM 04/11/19 [History Confirmed 04/11/19] Dm/PE/Acetaminophen/Doxylamine [Vicks Nyquil Severe Cold-Flu] 1 tab PO ONCE PRN 04/11/19 [History Confirmed 04/11/19] Trazodone HCl 1 tab PO QPM PRN 04/11/19 [History Confirmed 04/11/19] PMH/Surg Hx/FS Hx/Imm Hx Other GI/ History: LIVER TRANSPLANT - Surgical History Surgical History: Yes Surgery Procedure, Year, and Place: 1979 ifeanyi procedure, (bad liver) ,D&C 1996, Tubal ligation 2000, liver transplant 07/2004 (liver failure) [facility], tonsillectomy 2008 [facility]. LEFT FOOT BONE SPUR - Family History Known Family History: Positive: Hypertension - mother, Other - father- hypothyroid Negative: Cardiac Disease, Diabetes - Social History Alcohol Use: None Substance Use Type: None Smoking Status (MU): Never Smoked Tobacco - Immunization History Most Recent Influenza Vaccination: 2016 Most Recent Tetanus Shot: 2017 Most Recent Pneumonia Vaccination: never Review of Systems All Other Systems Reviewed And Are Negative: Yes Constitutional: Positive: Fatigue ENT: Positive: Ear Ache, Nasal Discharge Respiratory: Positive: Cough Cardiovascular: Positive: Negative Gastrointestinal: Positive: Negative Physical Exam Triage Information Reviewed: Yes Appearance: Well-Appearing, No Pain Distress, Well-Nourished Vital Signs: Initial Vital Signs Temp 98.8 F 04/11/19 14:35 Pulse 104 04/11/19 14:35 Resp 20 04/11/19 14:35 BP 126/87 04/11/19 14:35 Pulse Ox 100 04/11/19 14:35 Vital Signs Reviewed: Yes Eyes: Positive: Conjunctiva Clear ENT: Positive: Hearing grossly normal, Pharynx normal, TMs normal Neck: Positive: Supple, Nontender, No Lymphadenopathy Respiratory Exam: Normal Cardiovascular Exam: Normal Abdomen Description: Positive: Soft Musculoskeletal: Positive: No Edema Neurological: Positive: Alert Psychological: Positive: Age Appropriate Behavior Skin: Negative: Rashes Respiratory Course/Dx - Course Course Of Treatment: PATIENT WOULD LIKELY VIRAL URI HOWEVER GIVEN HER IMMUNOSUPPRESSED STATUS WILL GO AHEAD AND COVER WITH ANTIBIOTICS. PATIENT WILL FOLLOW-UP IF SHE DOES NOT IMPROVE EXPECTED. - Differential Dx/Diagnosis Provider Diagnosis: Acute URI Discharge ED - Sign-Out/Discharge Documenting (check all that apply): Patient Departure All imaging exams completed and their final reports reviewed: No Studies - Discharge Plan Condition: Stable Disposition: HOME Prescriptions: Azithromycin 500 mg PO DAILY #5 tablet Benzonatate CAP* [Tessalon CAP*] 1 - 2 cap PO TID PRN #30 cap PRN Reason: Cough Patient Education Materials: Upper Respiratory Infection (ED) Referrals: Neil Bernard MD [Primary Care Provider] - If Needed Additional Instructions: YOUR SYMPTOMS MAY BE VIRALLY MEDIATED BUT GIVEN YOUR IMMUNOSUPPRESSED STATUS WE WILL COVER YOU WITH ANTIBIOTICS. IF YOU START THE MEDICINE BE SURE TO TAKE IT FOR THE FULL COURSE. REST, HYDRATE, OTC MEDS NEEDED. SEEK FOLLOW-UP WITH YOUR PCP IF YOU ARE NOT IMPROVING OVER THE NEXT 1-2 WEEKS. - Billing Disposition and Condition Condition: STABLE Disposition: Home
== END 2019-04-11 15:15 | disposition home or self-care (01) ==
LOC: UCEAST 14:28
DX: J06.9 Acute upper respiratory infection, unspecified (principal); Z88.8 Allergy status to other drugs, medicaments and biological substances; Z88.0 Allergy status to penicillin; Z88.6 Allergy status to analgesic agent; Z88.5 Allergy status to narcotic agent; Z88.1 Allergy status to other antibiotic agents; Z94.4 Liver transplant status
CPT/HCPCS: 99212; G0463

== ENCOUNTER 2019-05-31 19:51 | Emergency (ER) | payer BC ==
--- OUTSIDE RECORDS SUMMARY | 2019-05-31 20:09 | XMS REPORT | Continuity of Care Document ---
:1980 External Reference #:[id number] Author Name Sean Cruz M.D. 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 Problems Active Problems Provider Date Transplantation of liver Meño Markham M.D.,FACP Onset: 03/19/2007 Depressive disorder Meño Markham M.D.,FACP Onset: 03/19/2007 Staphylococcus aureus Meño Markham M.D.,FACP Onset: 03/19/2007 Gastritis Meño Markham M.D.,FACP Onset: 03/19/2007 Migraine with typical aura Meño Markham M.D.,FACP Onset: 03/19/2007 Severe recurrent major depression Meño Markham M.D.,FACP Onset: 2007 without psychotic features Congenital biliary atresia Meño Markham M.D.,FACP Onset: 07/07/2007 Chronic disease of tonsils AND/OR Meño Markham M.D.,FACP Onset: 2007 adenoids Low back pain Meño Markham M.D.,FACP Onset: 08/17/2007 Social History Type Date Description Comments Sex Unknown Tobacco Use Start: Unknown Never Smoked Cigarettes ETOH Use Denies alcohol use Recreational Drug Use Denies Drug Use Tobacco Use Start: Unknown Patient has never smoked Smoking Status Reviewed: 04/12/19 Patient has never smoked Exercise Type/Frequency Exercises sporadically Allergies, Adverse Reactions, Alerts Active Allergies Reaction Severity Comments Date Demerol 03/19/2007 Aspir-81 03/19/2007 Gentamycin Urticaria 03/19/2007 Rocephin Urticaria 03/19/2007 Penicillin 03/19/2007 Dairy 04/25/2017 Doxycycline nausea, diarrhea 04/25/2017 Albuterol 04/25/2017 Morphine Liposomal rash, itching 04/25/2017 Inactive Allergies Codeine 03/19/2007 Phenergan 03/19/2007 Medications Active Medications SIG Qnty Indications Ordering Date Provider [facility] B6 take one 60tabs Z79.899 Sean Cruz, 09/24/2018 100mg Tablets capsule/tablet M.D. daily by mouth Trazodone HCL take one 30tabs Sean Cruz, 08/07/2018 50mg tablet/capsule M.D. Tablets by mouth at bedtime. as needed for insomnia Bacitracin (External) apply twice 28.400gm Sean Cruz, 07/02/2018 daily to the ear M.D. 500Unit/GM Ointment Lidocaine apply topically 60units Z79.899 Sean Cruz, 07/02/2018 4% Cream 4 times per day M.D. as needed to the feet Cyclobenzaprine HCL take one tablet 60tabs Sean Cruz, 06/03/2017 10mg by mouth twice a M.D. Tablets day as needed for muscle spasms Enbrel Sureclick inject 1ml under 12units Z79.899 Sean Cruz, 2017 50mg/ml the skin every M.D. Solution Auto-Inject week M06.9 Biotin Unknown Vitamin E Unknown Vitamin D Unknown Zinc Unknown Vitamin C Unknown Vitamin B12 Unknown Benadryl Allergy 3 tabs at night Unknown 25mg Tablets Clonazepam take one 30tabs Sean Cruz M.D. 2mg Tablets tablet/capsule by mouth at bedtime. as needed for anxiety Oxycodone HCL take one by mouth 90tabs M05.79 Sean Cruz M.D. 5mg Tablets every eight hours as needed for pain Tacrolimus 2 in am, 1 in pm Unknown 1mg History Medications Humira 40mg sq every 2 2units Z79.899 Sean Cruz, 10/23/2018 - 40mg/0.4ML weeks, citrate free Beau 10/23/2018 PSKT formulation M06.9 Medications Administered in Office Medication SIG Qnty Indications Ordering Provider Date Triamcinolone (Kenalog) Sean Cruz M.D. 09/24/2018 Injection Triamcinolone (Kenalog) Sean Cruz M.D. 05/30/2017 Injection Triamcinolone (Kenalog) Sean Cruz M.D. 05/21/2017 Injection No Injection Gordo Schmidt MD 08/27/2016 Injection Immunizations CPT Code Status Date Vaccine Reaction Lot # [id number] Given 12/31/2017 Influenza Virus Vaccine, no immediate reaction [id number] Quadrivalent, Split, noted Preservative Free [id number] Given 09/29/2017 Pneumococcal Conjugate no immediate reaction [id number] Vaccine 13 Valent For noted Intramuscular Use Vital Signs Date Vital Result Comment 04/12/2019 1:44pm Height 64 inches 5'4" Weight 160.00 lb Heart Rate 135 /min BP Systolic Sitting 116 mmHg BP Diastolic Sitting 80 mmHg Body Temperature 97.8 F Pain Level 6 O2 % BldC Oximetry 98 % BMI (Body Mass Index) 27.5 kg/m2 12/15/2018 4:26pm Height 64 inches 5'4" Weight 166.00 lb Heart Rate 108 /min BP Systolic 120 mmHg BP Diastolic 80 mmHg Pain Level 7 O2 % BldC Oximetry 98 % BMI (Body Mass Index) 28.5 kg/m2 Results Description No Information Available Procedures Date Code Description Status 11/04/2018 [id number] Mammogram Completed 01/01/2018 [id number] Bone Mineral Density Test Completed Medical Devices Description No Information Available Encounters Type Date Location Provider Dx Diagnosis Office Visit 12/15/2018 Rheumatology Sean Cruz M06.9 Rheumatoid 4:[facility] arthritis, unspecified Z79.899 Other longterm (current) drug therapy M54.5 Low back pain F06.4 Anxiety disorder due to known physiological condition Assessments Date Code Description Provider 04/12/2019 M06.9 Rheumatoid arthritis, unspecified Sean Cruz M.D. 04/12/2019 Z79.899 Other longterm (current) drug therapy Sean Cruz M.D. 04/12/2019 R00.0 Tachycardia, unspecified Sean Cruz M.D. 04/12/2019 R20.8 Other disturbances of skin sensation Sean Cruz M.D. 12/15/2018 M06.9 Rheumatoid arthritis, unspecified Sean Cruz M.D. 12/15/2018 Z79.899 Other longterm (current) drug therapy Sean Cruz M.D. 12/15/2018 M54.5 Low back pain Sean Cruz M.D. 12/15/2018 F06.4 Anxiety disorder due to known physiological Sean Cruz M.D. condition Plan of Treatment Future Appointment(s):04/20/2019 1:30 pm - Nurse Visit at [facility]07/12/2019 1:40 pm - Sean Cruz M.D. at [facility]04/12/2019 - Sean Cruz M.D.M06.9 Rheumatoid arthritis, [id number] Other watermelon inspector (current) drug [id number] Tachycardia, lxskfkwlxeiM80.8 Other disturbances of skin sensationFollow up:Follow up in 2 or 3 months or sooner if needed Functional Status Description No Information Available Mental Status Description No Information Available Referrals Description No Information Available
[2019-06-01] MEDS ORDERED: NS 0.9% 1000 ML** 1,000 ML IV ONE (01:59)
[2019-06-01] MEDS ORDERED: Ondansetron INJ* 2 MG/ML VIAL IV ONE (01:59)
--- NOTE | 2019-06-01 01:59 | ED ---
Influenza-Like Illness - HPI Summary HPI Summary: Patient complains of chest tightness, dry cough, back pain, low-grade fever, nausea, SOB with exertion, body aches, abdominal cramping 4 days. Denies known fever, CP, sore throat, headache, neck stiffness, change in urine, diarrhea. Medical history is asthma, chronic tachycardia, RA. - History of Current Complaint Chief Complaint: EDChestPainROMI Time Seen by Provider: 06/01/19 01:45 Hx Obtained From: Patient Onset/Duration: Gradual Onset, Lasting Days Severity: Moderate Associated Signs & Symptoms: Fever, Myalgia, Cough - Allergy/Home Medications Allergies/Adverse Reactions: Allergies Allergy/AdvReac Type Severity Reaction Status Date / Time ceftriaxone Allergy Intermediate Hives Verified 06/01/19 04:06 gentamicin Allergy Intermediate Hives Verified 06/01/19 04:06 morphine Allergy Intermediate Hives Verified 06/01/19 04:06 acetaminophen Allergy Unknown Verified 06/01/19 04:06 Reaction Details aspirin Allergy Unknown Verified 06/01/19 04:06 Reaction Details Penicillins Allergy Unknown Verified 06/01/19 04:06 Reaction Details ibuprofen AdvReac Intermediate See Comment Verified 06/01/19 04:06 PMH/Surg Hx/FS Hx/Imm Hx Endocrine/Hematology History: Reports: Hx Thyroid Disease, Hx Anemia Denies: Hx Diabetes Cardiovascular History: Reports: Other Cardiovascular Problems/Disorders - HX TACHYCARDIA Denies: Hx Hypertension, Hx Pacemaker/ICD Respiratory History: Denies: Hx Asthma, Hx Chronic Obstructive Pulmonary Disease (COPD) GI History: Reports: Hx Cirrhosis - 2004 LIVER TRANSPLANT, BILALARY ATRESIA, Hx Gastroesophageal Reflux Disease, Hx Hiatal Hernia, Other GI Disorders - Liver transplant for biliary atresia, 2004 Denies: Hx Ulcer History: Reports: Hx Kidney Infection - R/T STONE 2008, Hx Kidney Stones - NO SURGERY, Hx Renal Disease - HX OF STONE AND INFECTIONS Musculoskeletal History: Reports: Hx Arthritis - ankylosing spondylitis , Hx Rheumatoid Arthritis, Hx Bursitis - L Shoulder, Other Musculoskeletal History - 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, tonsillectomy 2008 [facility]. 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 Denies: Hx Clostridium Difficile, Hx Hepatitis, Hx Human Immunodeficiency Virus (HIV), Hx Shingles, Hx Tuberculosis, Hx Known/Suspected VRE, Hx Known/ Suspected VRSA, History Other Infectious Disease, Traveled Outside the [place] in Last 30 Days - Family History Known Family History: Positive: Hypertension - mother, Other - father- hypothyroid Negative: Cardiac Disease, Diabetes - Social History Alcohol Use: None Hx Substance Use: No Substance Use Type: Reports: None Hx Tobacco Use: No Smoking Status (MU): Never Smoked Tobacco Review of Systems Positive: Fever Eyes: Negative ENT: Negative Positive: Other Positive: Shortness Of Breath, Cough Positive: Abdominal Pain, Nausea Genitourinary: Negative Positive: Myalgia Skin: Negative Neurological/Mental Status: Negative Psychological: Normal All Other Systems Reviewed And Are Negative: Yes Physical Exam Triage Information Reviewed: Yes Vital Signs On Initial Exam: Initial Vitals Temp Pulse Resp BP Pulse Ox 97.2 F 115 15 148/80 99 05/31/19 19:56 05/31/19 19:56 05/31/19 19:56 05/31/19 19:56 05/31/19 19:56 Vital Signs Reviewed: Yes Appearance: Positive: Well-Appearing Skin: Positive: Warm Head/Face: Positive: Normal Head/Face Inspection Eyes: Positive: Normal ENT: Positive: Normal ENT inspection Neck: Positive: Supple Respiratory/Lung Sounds: Positive: Clear to Auscultation Cardiovascular: Positive: Tachycardia Abdomen Description: Positive: Nontender Musculoskeletal: Positive: Normal Neurological: Positive: Normal Psychiatric: Positive: Normal AVPU Assessment: Alert - [place] Coma Scale Best Eye Response: 4 - Spontaneous Best Motor Response: 6 - Obeys Commands Best Verbal Response: 5 - Oriented Coma Scale Total: 15 Procedures - Sedation Patient Received Moderate/Deep Sedation with Procedure: No Diagnostics - Vital Signs Vital Signs Temp Pulse Resp BP Pulse Ox 06/01/19 01:10 97.5 F 104 16 135/80 100 05/31/19 22:44 97.4 F 102 16 111/83 100 05/31/19 19:56 97.2 F 115 15 148/80 99 - Laboratory Result Diagrams: 06/01/19 02:19 06/01/19 02:19 Lab Statement: Any lab studies that have been ordered have been reviewed, and results considered in the medical decision making process. Flu Symptom Course/Dx - Course Course Of Treatment: Patient complains of chest tightness, dry cough, back pain , low-grade fever, nausea, SOB with exertion, body aches, abdominal cramping 4 days. Denies known fever, CP, sore throat, headache, neck stiffness, change in urine, diarrhea. Medical history is asthma, chronic tachycardia, RA. Mildly tachycardic. Vital signs otherwise within normal limits. WBC 14.6. CRP 13. Labs otherwise unremarkable. Negative. EKG sinus tachycardia, heart rate in the 119. Same as prior EKGs. - Diagnoses Provider Diagnoses: Viral syndrome Discharge ED - Sign-Out/Discharge Documenting (check all that apply): Patient Departure - Discharge Plan Condition: Stable Disposition: HOME Prescriptions: Ondansetron ODT TAB* [Zofran 4 MG Odt TAB*] 4 mg PO Q8H PRN 4 Days #14 tab.odt PRN Reason: Nausea Patient Education Materials: Viral Syndrome (ED) Forms: *Work Release Referrals: Neil Bernard MD [Primary Care Provider] - Additional Instructions: Alternate ibuprofen 600 mg with Tylenol 650 mg for headache, body aches and fever control. Take Zofran as directed for nausea. Drink plenty of fluids to maintain hydration. Rest. Follow-up with primary care. Return to the ED for any new or worsening symptoms. - Billing Disposition and Condition Condition: STABLE Disposition: Home
[2019-06-01 02:29] LABS: ABS Basophils 0.1 10^3/ul (0-0.2); ABS Eosinophils 0.1 10^3/ul (0-0.6); ABS Monocytes 0.7 10^3/ul (0-0.8); ABS Neutrophils 11.7 10^3/ul (1.5-7.7); Eosinophil % 0.8 %; Hematocrit 40 % (35-47); Lymphocyte % 13.9 %; Mean Corpuscular HGB Conc 35 g/dL (31-36); Mean Corpuscular Hemoglobin 30 pg (27-31); Mean Corpuscular Volume 85 fL (80-97); Mean Platelet Volume 9.2 fL (7.4-10.4); Platelet Count 180 10^3/uL (150-450); Red Blood Count 4.72 10^6 /uL (3.70-4.87); Red Cell Distribution Width 14 % (10-15); White Blood Count 14.6 10^3/uL (3.5-10.8)
[2019-06-01 02:51] LABS: Albumin 4.5 g/dL (3.2-5.2); Albumin/Globulin Ratio 1.2 (1-3); BUN/Creatinine Ratio 21.6 (8-20); C Reactive Protein 13.78 mg/L (<8.01); Calcium 9.7 mg/dL (8.6-10.3); EGFR African American 105.2 (>60); EGFR Non-African American 86.9 (>60); Globulin 3.7 g/dL (2-4); Potassium 3.8 mmol/L (3.5-5.0); Total Bilirubin 0.9 mg/dL (0.2-1.0); Total Protein 8.2 g/dL (6.4-8.9)
[2019-06-01 02:58] LABS: HCG Pregnancy 1.18 mIU/mL
[2019-06-01 03:11] LABS: TSH (Thyroid Stimulating Horm) 1.76 mcIU/mL (0.34-5.60)
[2019-06-01 03:15] LABS: Influenza A Molecular Negative (Negative); Influenza B Molecular Negative (Negative)
[2019-06-01] MEDS ORDERED: Benzonatate CAP* 100 MG PO ONE (03:25)
[2019-06-01 03:42] LABS: Troponin I 0.01 ng/mL (<0.03)
[2019-06-01 04:06] LABS: Urine Appearance Cloudy; Urine Bilirubin Negative (Negative); Urine Blood Negative (Negative); Urine Color Yellow; Urine Glucose Negative (Negative); Urine Ketones Trace (Negative); Urine Nitrite Negative (Negative); Urine Protein Negative (Negative); Urine Specific Gravity 1.013 (1.010-1.030); Urine Urobilinogen Negative (Negative)
[2019-06-01 04:29] VITALS: BP 123/90
== END 2019-06-01 04:27 | disposition home or self-care (01) ==
LOC: ED 19:51
DX: B34.9 Viral infection, unspecified (principal); R07.89 Other chest pain; M54.9 Dorsalgia, unspecified; E03.9 Hypothyroidism, unspecified; R06.02 Shortness of breath; R00.0 Tachycardia, unspecified; F41.9 Anxiety disorder, unspecified; F32.9 Major depressive disorder, single episode, unspecified; K21.9 Gastro-esophageal reflux disease without esophagitis; Z87.442 Personal history of urinary calculi; Z98.51 Tubal ligation status; Z94.4 Liver transplant status; Z86.14 Personal history of Methicillin resistant Staphylococcus aureus infection
CPT/HCPCS: 36415; 71046; 80053; 81003; 83605; 83690; 84443; 84484; 84702; 85025; 86140; 93005; 96361; 96374; 99283; A9270-GY; J2405

== ENCOUNTER 2019-07-06 17:53 | Emergency (ER) | payer BC ==
[2019-07-06 17:57] VITALS: BP 143/90
--- NOTE | 2019-07-06 18:12 | ED ---
Burn - HPI Summary HPI Summary: 38 year old F presenting to [facility] with a chief complaint of a burn to her left arm since earlier today. The patient rates the pain 7/10 in severity. Symptoms aggravated by palpation. Symptoms alleviated by nothing. Patient reports that she burned her arm with hot food. The patient has a history of a liver transplant and RA. Medication list reviewed. Allergy list reviewed. Home Medications Medication Instructions Recorded Confirmed Type Etanercept SYR (NF) [Enbrel (NF)] 50 mg SUBCUT Q7D 08/31/17 04/11/19 History Ibuprofen TAB* [Advil TAB*] 600 mg PO Q6H PRN 08/31/17 04/11/19 History Tacrolimus CAP(*) [Prograf CAP(*)] 1 mg PO QPM 08/31/17 04/11/19 History Tacrolimus CAP(*) [Prograf CAP(*)] 2 mg PO QAM 08/31/17 04/11/19 History oxyCODONE TAB* [Roxycodone TAB 5 10 - 15 mg PO QPM 08/31/17 04/11/19 History mg*] Azithromycin 500 mg PO DAILY #5 tablet 04/11/19 Rx Benzonatate CAP* [Tessalon CAP*] 1 - 2 cap PO TID PRN #30 cap 04/11/19 Rx Cyclobenzaprine HCl 1 tab PO QPM 04/11/19 04/11/19 History Dm/PE/Acetaminophen/Doxylamine 1 tab PO ONCE PRN 04/11/19 04/11/19 History [Gloria Coronelquil Severe Cold-Flu] Trazodone HCl 1 tab PO QPM PRN 04/11/19 04/11/19 History Ondansetron ODT TAB* [Zofran 4 MG 4 mg PO Q8H PRN 4 Days #14 tab.odt 06/01/19 Rx Odt TAB*] - History of Current Complaint Chief Complaint: EDBurnSmokeInh Stated Complaint: L ARM BURN PER PT Time Seen by Provider: 07/06/19 18:08 Hx Obtained From: Patient Current Severity: Moderate Pain Intensity: 7 Pain Scale Used: 0-10 Numeric Location: LUE Aggravating: Other - Palpation Alleviating: Nothing - Allergy/Home Medications Allergies/Adverse Reactions: Allergies Allergy/AdvReac Type Severity Reaction Status Date / Time ceftriaxone Allergy Intermediate Hives Verified 07/06/19 17:57 gentamicin Allergy Intermediate Hives Verified 07/06/19 17:57 morphine Allergy Intermediate Hives Verified 07/06/19 17:57 acetaminophen Allergy Unknown Verified 07/06/19 17:57 Reaction Details aspirin Allergy Unknown Verified 07/06/19 17:57 Reaction Details Penicillins Allergy Unknown Verified 07/06/19 17:57 Reaction Details ibuprofen AdvReac Intermediate See Comment Verified 07/06/19 17:57 Home Medications: Home Medications Etanercept SYR (NF) [Enbrel (NF)] 50 mg SUBCUT Q7D 08/31/17 [History Confirmed 04/11/19] Ibuprofen TAB* [Advil TAB*] 600 mg PO Q6H PRN 08/31/17 [History Confirmed ] Tacrolimus CAP(*) [Prograf CAP(*)] 1 mg PO QPM 08/31/17 [History Confirmed 04/11] Tacrolimus CAP(*) [Prograf CAP(*)] 2 mg PO QAM 08/31/17 [History Confirmed 04/11] oxyCODONE TAB* [Roxycodone TAB 5 mg*] 10 - 15 mg PO QPM 08/31/17 [History Confirmed 04/11/19] Azithromycin 500 mg PO DAILY #5 tablet 04/11/19 [Rx] Benzonatate CAP* [Tessalon CAP*] 1 - 2 cap PO TID PRN #30 cap 04/11/19 [Rx] Cyclobenzaprine HCl 1 tab PO QPM 04/11/19 [History Confirmed 04/11/19] Dm/PE/Acetaminophen/Doxylamine [Vicks Nyquil Severe Cold-Flu] 1 tab PO ONCE PRN 04/11/19 [History Confirmed 04/11/19] Trazodone HCl 1 tab PO QPM PRN 04/11/19 [History Confirmed 04/11/19] Ondansetron ODT TAB* [Zofran 4 MG Odt TAB*] 4 mg PO Q8H PRN 4 Days #14 tab.odt 06/01/19 [Rx] PMH/Surg Hx/FS Hx/Imm Hx Endocrine/Hematology History: Reports: Hx Thyroid Disease, Hx Anemia Denies: Hx Diabetes Cardiovascular History: Reports: Other Cardiovascular Problems/Disorders - HX TACHYCARDIA Denies: Hx Hypertension, Hx Pacemaker/ICD Respiratory History: Denies: Hx Asthma, Hx Chronic Obstructive Pulmonary Disease (COPD) GI History: Reports: Hx Cirrhosis - 2005 LIVER TRANSPLANT, BILALARY ATRESIA, Hx Gastroesophageal Reflux Disease, Hx Hiatal Hernia, Other GI Disorders - Liver transplant for biliary atresia, 2004 Denies: Hx Ulcer History: Reports: Hx Kidney Infection - R/T STONE 2009, Hx Kidney Stones - NO SURGERY, Hx Renal Disease - HX OF STONE AND INFECTIONS Musculoskeletal History: Reports: Hx Arthritis - ankylosing spondylitis , Hx Rheumatoid Arthritis, Hx Bursitis - L Shoulder, Other Musculoskeletal History - 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 Denies: Hx Clostridium Difficile, Hx Hepatitis, Hx Human Immunodeficiency Virus (HIV), Hx Shingles, Hx Tuberculosis, Hx Known/Suspected VRE, Hx Known/ Suspected VRSA, History Other Infectious Disease, Traveled Outside the [place] in Last 30 Days - Family History Known Family History: Positive: Hypertension - mother, Other - father- hypothyroid Negative: Cardiac Disease, Diabetes - Social History Alcohol Use: None Hx Substance Use: No Substance Use Type: Reports: None Hx Tobacco Use: No Smoking Status (MU): Never Smoked Tobacco Review of Systems Positive: Other - Left arm pain Positive: Other - Left arm burn All Other Systems Reviewed And Are Negative: Yes Physical Exam - Summary Physical Exam Summary: Constitutional: Well-developed, Well-nourished, Alert. (-) Distressed Skin: Warm, Dry, 1% superficial burn to her left wrist on the anterior side, small area of blistering, no circumferential burn, no areas of decreased sensation. HENT: Normocephalic; Atraumatic Eyes: Conjunctiva normal Neck: Musculoskeletal ROM normal neck. (-) JVD, (-) Stridor, (-) Tracheal deviation Cardio: Rhythm regular, rate normal, Heart sounds normal; Intact distal pulses; Radial pulses are 2+ and symmetric. (-) Murmur Pulmonary/Chest wall: Effort normal. (-) Respiratory distress, (-) Wheezes, (-) Rales Abd: Soft, (-) tenderness, (-) Distension, (-) Guarding, (-) Rebound Musculoskeletal: (-) Edema Lymph: (-) Cervical adenopathy Neuro: Alert, Oriented x3 Psych: Mood and affect Normal Triage Information Reviewed: Yes Vital Signs On Initial Exam: Initial Vitals Temp Pulse Resp BP Pulse Ox 98.7 F 106 18 143/90 100 07/06/19 17:54 07/06/19 17:54 07/06/19 17:54 07/06/19 17:54 07/06/19 17:54 Vital Signs Reviewed: Yes Burn Calculation - [place] Formula for Fluid Resuscitation Weight: 70.307 kg 24 -Hour Fluid Replacement: 0.0 Procedures - Sedation Patient Received Moderate/Deep Sedation with Procedure: No Diagnostics - Vital Signs Vital Signs Temp Pulse Resp BP Pulse Ox 07/06/19 17:54 98.7 F 106 18 143/90 100 - Laboratory Lab Statement: Any lab studies that have been ordered have been reviewed, and results considered in the medical decision making process. Burn Course/Dx - Course Course Of Treatment: Patient is here with a superficial thickness burn to 1% of her body surface area. Patient had a dressing applied with Xeroform. Patient is discharged with dressing supplies. - Diagnoses Provider Diagnosis: Burn of left arm Discharge ED - Sign-Out/Discharge Documenting (check all that apply): Patient Departure - Discharge Plan Condition: Stable Disposition: HOME Patient Education Materials: Superficial Burn (ED) Referrals: Neil Bernard MD [Primary Care Provider] - 3 Days Additional Instructions: Follow-up with your PCP in 1-3 days. Keep your burn covered while at work. Return to the emergency department for any worsening redness, pus, fever, or chills. - Billing Disposition and Condition Condition: STABLE Disposition: Home - Attestation Statements Document Initiated by Scribe: Yes Documenting Scribe: Bette Ansari Provider For Whom Scribe is Documenting (Include Credential): Nathan Barahona MD Scribe Attestation: I, Bette Ansari, scribed for Nathan Barahona MD on 07/06/19 at 2115. Scribe Documentation Reviewed: Yes Provider Attestation: The documentation as recorded by the Bette ross accurately reflects the service I personally performed and the decisions made by me, Nathan Barahona MD Status of Scribe Document: Viewed
== END 2019-07-06 18:35 | disposition home or self-care (01) ==
LOC: ED 17:53
DX: T22.00XA Burn of unspecified degree of shoulder and upper limb, except wrist and hand, unspecified site, initial encounter (principal); E03.9 Hypothyroidism, unspecified; F32.9 Major depressive disorder, single episode, unspecified; Z86.14 Personal history of Methicillin resistant Staphylococcus aureus infection; Z87.442 Personal history of urinary calculi; X10.1XXA Contact with hot food, initial encounter; Y92.9 Unspecified place or not applicable; Z94.4 Liver transplant status; Z88.0 Allergy status to penicillin; Z88.6 Allergy status to analgesic agent; F41.9 Anxiety disorder, unspecified
CPT/HCPCS: 99281

== ENCOUNTER 2019-07-13 19:03 | Emergency (ER) | payer BC ==
--- NOTE | 2019-07-13 19:32 | ED ---
HPI Febrile Illness - HPI Summary HPI Summary: 38 y/o F with hx liver transplant presenting to [facility] c/o body aches and chills starting 3 days ago and fever starting today. Friday - cold chills and body aches, better w motrin. Friday felt better but today woke up with aches, sensitive skin. Fever to 100.2. Thinks she has chronic allergy cough. Scratchy throat for one hour. Denies sick exposure or recent travel. Also thinks peeing a lot, concerned about her kidneys (hx pyelonephritis which felt similar). - History of Current Complaint Time Seen by Provider: 07/13/19 19:14 Hx Obtained From: Patient Onset/Duration: Started Days Ago, Still Present Timing: Constant Current Severity: None Pain Intensity: 0 Pain Scale Used: 0-10 Numeric Aggravating Factors: Nothing Alleviating Factors: OTC Medicine Associated Signs and Symptoms: Other: - body aches, chills, sensitive skin, cough, scratchy throat - Additional Pertinent History Primary Care Physician: KASEY - Allergy/Home Medications Allergies/Adverse Reactions: Allergies Allergy/AdvReac Type Severity Reaction Status Date / Time ceftriaxone Allergy Intermediate Hives Verified 07/13/19 19:41 gentamicin Allergy Intermediate Hives Verified 07/13/19 19:41 morphine Allergy Intermediate Hives Verified 07/13/19 19:41 acetaminophen Allergy Unknown Verified 07/13/19 19:41 Reaction Details aspirin Allergy Unknown Verified 07/13/19 19:41 Reaction Details Penicillins Allergy Unknown Verified 07/13/19 19:41 Reaction Details ibuprofen AdvReac Intermediate See Comment Verified 07/13/19 19:41 Home Medications: Home Medications Etanercept SYR (NF) [Enbrel (NF)] 50 mg SUBCUT Q7D 08/31/17 [History Confirmed 07/13/19] Ibuprofen TAB* [Advil TAB*] 600 mg PO Q6H PRN 08/31/17 [History Confirmed ] Tacrolimus CAP(*) [Prograf CAP(*)] 1 mg PO QPM 08/31/17 [History Confirmed 07/12] Tacrolimus CAP(*) [Prograf CAP(*)] 2 mg PO QAM 08/31/17 [History Confirmed 07/12] oxyCODONE TAB* [Roxycodone TAB 5 mg*] 10 - 15 mg PO QPM 08/31/17 [History Confirmed 07/13/19] Dm/PE/Acetaminophen/Doxylamine [Vicks Nyquil Severe Cold-Flu] 1 tab PO ONCE PRN 04/11/19 [History Confirmed 07/13/19] Ondansetron ODT TAB* [Zofran 4 MG Odt TAB*] 4 mg PO Q8H PRN 4 Days #14 tab.odt 06/01/19 [Rx Confirmed 07/13/19] Cyclobenzaprine TAB* [Flexeril 10 MG TAB*] 10 mg PO BID PRN 07/13/19 [History Confirmed 07/13/19] traZODone TAB* [Desyrel TAB*] 50 mg PO BEDTIME PRN 07/13/19 [History Confirmed 07/13/19] PMH/Surg Hx/FS Hx/Imm Hx Endocrine/Hematology History: Reports: Hx Thyroid Disease, Hx Anemia Denies: Hx Diabetes Cardiovascular History: Reports: Other Cardiovascular Problems/Disorders - HX TACHYCARDIA Denies: Hx Hypertension Respiratory History: Denies: Hx Asthma, Hx Chronic Obstructive Pulmonary Disease (COPD) GI History: Reports: Hx Cirrhosis - 2004 LIVER TRANSPLANT, BILALARY ATRESIA, Hx Gastroesophageal Reflux Disease, Hx Hiatal Hernia, Other GI Disorders - Liver transplant for biliary atresia, 2004 History: Reports: Hx Kidney Infection - R/T STONE 2008, Hx Kidney Stones - NO SURGERY, Hx Renal Disease - HX OF STONE AND INFECTIONS Musculoskeletal History: Reports: Hx Arthritis - ankylosing spondylitis , Hx Rheumatoid Arthritis, Hx Bursitis - L Shoulder, Other Musculoskeletal History - 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 Denies: Hx Clostridium Difficile, Hx Hepatitis, Hx Human Immunodeficiency Virus (HIV), Hx Shingles, Hx Tuberculosis, Hx Known/Suspected VRE, Hx Known/ Suspected VRSA, History Other Infectious Disease, Traveled Outside the [place] in Last 30 Days - Family History Known Family History: Positive: Hypertension - mother, Other - father- hypothyroid Negative: Cardiac Disease, Diabetes - Social History Alcohol Use: None Hx Substance Use: No Substance Use Type: Reports: None Hx Tobacco Use: No Smoking Status (MU): Never Smoked Tobacco Review of Systems Positive: Fever, Chills Positive: Other - scratchy throat Positive: Cough Positive: Myalgia Positive: Other - sensitive skin All Other Systems Reviewed And Are Negative: Yes Physical Exam - Summary Physical Exam Summary: Constitutional: Well-developed, Well-nourished, Alert. (-) Distressed Skin: Warm, Dry HENT: Normocephalic; Atraumatic Eyes: Conjunctiva normal Neck: Musculoskeletal ROM normal neck. (-) JVD, (-) Stridor, (-) Nuchal rigidity Cardio: Rhythm regular, rate normal, Heart sounds normal; Intact distal pulses; Radial pulses are 2+ and symmetric. (-) Murmur Pulmonary/Chest wall: Effort normal. (-) Respiratory distress, (-) Wheezes, (-) Rales Abd: Soft, (-) tenderness, (-) Distension, (-) Guarding, (-) Rebound Musculoskeletal: (-) Edema Lymph: (-) Cervical adenopathy Neuro: Alert, Oriented x3 Psych: Mood and affect Normal Triage Information Reviewed: Yes Vital Signs Reviewed: Yes Procedures - Sedation Patient Received Moderate/Deep Sedation with Procedure: No Diagnostics - Laboratory Result Diagrams: 07/13/19 19:52 07/13/19 19:52 Lab Statement: Any lab studies that have been ordered have been reviewed, and results considered in the medical decision making process. Course/Dx - Course Course Of Treatment: Patient presenting with myalgia, fever. BC sent given immunosuppression. UA w/o bacteria. Given fluids, toradol. Flu negative. Patient well appearing, with stable vitals. Patient does not have increased work of breathing, productive cough to suggest pneumonia. No headache, neck pain or nuchal rigidity. Tolerating by mouth. Patient given strict instructions on quarantine, follow-up with department of health, and return precautions. Plan for discharge w symptomatic control and will return for worsening symptoms. - Diagnoses Provider Diagnoses: Fever, Myalgia Discharge ED - Sign-Out/Discharge Documenting (check all that apply): Patient Departure - Discharge Plan Condition: Stable Disposition: HOME Patient Education Materials: Fever in Adults (ED) Forms: COVID-19 Tested & Isolation Referrals: Neil Bernard MD [Primary Care Provider] - Additional Instructions: You were seen in the emergency department for chills and myalgias. Her flu was negative. Your COVID test is pending If any studies were not completed at the time of discharge you will be called with the relevant results. Please follow up with your primary care doctor in next 2-3 days and return to emergency department for worsening or concerning symptoms. It was a pleasure taking care of you today. - Billing Disposition and Condition Condition: STABLE Disposition: Home - Attestation Statements Document Initiated by Zeny: Yes Documenting Scribe: Sofia Mendenhall Provider For Whom Zeny is Documenting (Include Credential): Masha Mcnamara MD Scribe Attestation: I, Sofia Mendenhall, scribed for Masha Mcnamara MD on 07/13/19 at 2125. Scribe Documentation Reviewed: Yes Provider Attestation: The documentation as recorded by the Sofia ross accurately reflects the service I personally performed and the decisions made by me, Masha Mcnamara MD Status of Scribe Document: Viewed
[2019-07-13] MEDS ORDERED: NS 0.9% 1000 ML** 1,000 ML IV ONE (19:38)
[2019-07-13] MEDS ORDERED: Ketorolac INJ* 30 MG/ML 1 ML VIAL IV ONE (19:38)
[2019-07-13 20:16] LABS: ABS Lymphocytes 0.5 10^3/ul (1.0-4.8); ABS Monocytes 0.5 10^3/ul (0-0.8); ABS Neutrophils 7.7 10^3/ul (1.5-7.7); Eosinophil % 0.4 %; Hematocrit 39 % (35-47); Hemoglobin 13.3 g/dL (12.0-16.0); Lymphocyte % 5.6 %; Mean Corpuscular HGB Conc 34 g/dL (31-36); Mean Corpuscular Hemoglobin 30 pg (27-31); Mean Corpuscular Volume 86 fL (80-97); Mean Platelet Volume 8.8 fL (7.4-10.4); Platelet Count 154 10^3/uL (150-450); Red Blood Count 4.51 10^6 /uL (3.70-4.87); Red Cell Distribution Width 14 % (10-15); White Blood Count 8.8 10^3/uL (3.5-10.8)
[2019-07-13 20:28] LABS: CO2 Carbon Dioxide 23 mmol/L (22-32); Chloride 104 mmol/L (101-111); Sodium 134 mmol/L (135-145)
[2019-07-13 20:34] LABS: ALT 32 U/L (7-52); Albumin/Globulin Ratio 1.1 (1-3); Alkaline Phosphatase 103 U/L (34-104); BUN/Creatinine Ratio 16.4 (8-20); Blood Urea Nitrogen 12 mg/dL (6-24); EGFR African American 106.8 (>60); EGFR Non-African American 88.3 (>60); Globulin 3.6 g/dL (2-4); Glucose 103 mg/dL (70-100); Total Protein 7.6 g/dL (6.4-8.9)
[2019-07-13 20:38] LABS: Influenza A Molecular Negative (Negative); Influenza B Molecular Negative (Negative)
[2019-07-13 20:47] LABS: HCG Pregnancy < 0.60 mIU/mL
[2019-07-13 20:56] LABS: Anion Gap 7 mmol/L (2-11)
[2019-07-13 21:02] LABS: AST 32 U/L (13-39)
[2019-07-13 21:16] LABS: Urine Appearance Clear; Urine Bilirubin Negative (Negative); Urine Blood 1+ (Negative); Urine Color Straw; Urine Glucose Negative (Negative); Urine Ketones Negative (Negative); Urine Nitrite Negative (Negative); Urine Protein Negative (Negative); Urine Specific Gravity 1.003 (1.010-1.030); Urine Urobilinogen Negative (Negative)
[2019-07-13 21:21] LABS: Urine Bacteria 1+ (Absent); Urine Red Blood Cell Trace(0-2/hpf) (Absent); Urine Squamous Epithelial Cell Present (Absent); Urine White Blood Cell Trace(0-5/hpf) (Absent)
[2019-07-13 21:38] VITALS: BP 121/78
== END 2019-07-13 21:37 | disposition home or self-care (01) ==
LOC: ED 19:03
DX: M79.10 Myalgia, unspecified site (principal); R50.9 Fever, unspecified; Z94.4 Liver transplant status; E03.9 Hypothyroidism, unspecified; D64.9 Anemia, unspecified; K21.9 Gastro-esophageal reflux disease without esophagitis; F41.9 Anxiety disorder, unspecified; F32.9 Major depressive disorder, single episode, unspecified; Z98.51 Tubal ligation status; Z79.899 Other long term (current) drug therapy; Z88.0 Allergy status to penicillin; Z88.1 Allergy status to other antibiotic agents; Z88.5 Allergy status to narcotic agent; Z88.8 Allergy status to other drugs, medicaments and biological substances
CPT/HCPCS: 36415; 80053; 81003; 81015; 84702; 85025; 87086; 96361; 96374; 99283; J1885; U0002